=== PATIENT | female | born 1950 | race Caucasian/White ===

== ENCOUNTER 2024-02-28 10:40 | Outpatient (AMB) | payer MEDICARE, BC, SELFPAY ==
[2024-02-28 11:29] VITALS: BP 118/70; PULSE 70; O2SAT 97; BMI 27.3
--- NOTE | 2024-02-28 11:29 | MHC.OFFVIS ---
Vital Signs 02/28/24 11:29 Height 5 ft 3 in Weight 153 lb 14.122 oz BMI 27.3 BP 118/70 Blood Pressure Location Lt brachial Position Sitting Pulse 70 Pulse Source Pulse Oximeter Pulse Oximetry (%) 97 Oxygen Delivery Method Room Air Intake Visit Reasons: Rt clavicular pain/swelling/CM APT Intake Note: Patient presents today with pain in right arm/shoulder pain. Allergies No Known Allergies Allergy (Verified 02/28/24 11:32) HPI HPI Rt clavicular pain/swelling/CM APT: Details: She has had chronic right clavicular swelling for months. It was initially noticed by her friend. She reports that she has been working out at the [employer] with lifting weights, which may have brought on the swelling. She denies having any redness or warmth around the joint. The joint is not tender to touch. She is experiencing pain in bilateral shoulders and neck pain with certain movements when she is working out. She has changed her workout routine, which has alleviated some of the shoulder pain. She has arthritis in her hands and occasionally has pain. When she bangs her finger she may note some swelling, which subsides. She has not had an episode of acute joint. There is no family history of any rheumatological disease. No personal history of gout or pseudogout. She denies fevers, rash, oral ulcers, photosensitivity, Raynaud's phenomenon, dyspnea, pleurisy, urinary symptoms, nausea, vomiting, major illness or hospitalization in the last year, infections precipitating right clavicular swelling. [facility] Medical History (Updated 02/28/24 @ 12:53 by Darrion Duran MD) Myofascial pain Fibromyalgia Surgical History (Updated 02/28/24 @ 11:37 by Zakiya Adler CMA) History of carpal tunnel surgery H/O right wrist surgery Family History (Updated 02/28/24 @ 11:39 by Zakiya Adler CMA) Father Heart attack Mother Advanced dementia Social History (Updated 02/28/24 @ 11:40 by Zakiya Adler CMA) Alcohol intake: current Alcohol intake frequency: holidays/special occasions only Patient Tobacco Use Status: Never used Tobacco Review of Systems Const All systems reviewed & are unremarkable except as noted in HPI and below Physical Exam Vital Signs: Last Vital Signs Pulse 70 02/28/24 11:29 BP 118/70 02/28/24 11:29 Pulse Ox 97 02/28/24 11:29 Oxygen Delivery Method Room Air 02/28/24 11:29 BMI result Body Mass Index 27.3 Const Other: General: Comfortable CVS: RRR Respiratory: clear to auscultation bilaterally. Good respiratory effort Skin: No lesions seen MSK: She has soft tissue swelling without tenderness right sternoclavicular sternoclavicular joint. There is no warmth or discoloration. Tender to palpate bilateral shoulders. Pain with range of motion of shoulders but range of motion is intact. Right 5th PIP is tender with some swelling noted. Heberden nodes and Eleni's nodes are present. Good range of motion of upper extremities and lower extremities. No MTP tenderness. Bilateral trochanteric bursa tenderness was found. Results Reviewed Results Reviewed: Labs from 09/13/2023 reviewed, which reveal negative rheumatoid factor, anti CCP antibody, cytopenias, normal kidney function creatinine 0.71 with EGFR 90, AST is 26 ALT is 14, CRP is less than 1 milligram/liter, ESR 7 millimeters/hour, Lyme serology is negative. MRI right clavicle 09/17/2023 results reveal right sternoclavicular joint effusion with capsular hypertrophy and a small amount of marrow edema across the sternoclavicular joint. Findings may be secondary to right sternoclavicular osteoarthritis. Infection is felt unlikely. There is no osseous erosion and the history provided on the ultrasound report is that there is no erythema or warmth on the region. Ultrasound soft tissue 10/03/2023 reveals asymmetric thickening of hypoechoic soft tissue along the right sternoclavicular joint compared to the left, without a clear delineated mass. 2.1 x 2.2 x 0.8 cm area of relatively homogeneous mildly hypoechoic tissue at the anterior to the right sternoclavicular joint. This could represent inflammatory changes or fibrosis. X-ray of the right clavicle reviewed from [facility] records 08/28/2023 reveals no osseous abnormality. Assessment & Plan Assessment & Plan (1) Swelling of clavicular region: Comment: Chronic right sternoclavicular joint swelling could be secondary to osteoarthritis. Can consider crystal arthropathy in the differential diagnosis but it would be rare she does not have typical signs of inflammatory arthritis (no warmth, pain, normal inflammatory markers or systemic symptoms). I am not concerned about an septic arthritis/active infection especially with the imaging findings noting no erosions or aggressive features to suggest infection process. We discussed next steps in evaluating definitive cause for joint swelling involving IR ultrasound guided aspiration of joint and sending synovial fluid for studies including cell count, crystal analysis and culture. Code(s): M79.89 - Other specified soft tissue disorders Category: Medical Plan: We will arrange for IR ultrasound-guided aspiration of right sternoclavicular joint with synovial fluid analysis She will use NSAIDs as needed for general joint pain Return to clinic in 1 month following procedure (2) Greater trochanteric bursitis of both hips: Comment: Bilateral. Discussed conservative management Code(s): M70.61 - Trochanteric bursitis, right hip; M70.62 - Trochanteric bursitis, left hip Category: Medical Plan: PT referral ordered Return to clinic in 3 months (3) Shoulder pain: Comment: Bilateral exacerbated with activity. I suspect chronic rotator cuff tendinopathy but can not exclude osteoarthritis contributing. We will obtain x-ray to evaluate for joint pathology. Code(s): M25.519 - Pain in unspecified shoulder Category: Medical Plan: X-rays of bilateral shoulders ordered Orders: Orders PT Evaluation and Treatment Today M70.61 - Trochanteric bursitis, right hip, M70.62 - Trochanteric bursitis, left hip XR shoulder LT min 2V Today M25.519 - Pain in unspecified shoulder XR shoulder RT min 2V Today M25.519 - Pain in unspecified shoulder Alanine Aminotransferase Today M79.89 - Other specified soft tissue disorders Erythrocyte Sedimentation Rate Today M79.89 - Other specified soft tissue disorders Hepatitis B,C Profile Today M79.89 - Other specified soft tissue disorders Creatinine Today M79.89 - Other specified soft tissue disorders Aspartate Amino Transferase Today M79.89 - Other specified soft tissue disorders C Reactive Protein Today M79.89 - Other specified soft tissue disorders T Spot TB Today M79.89 - Other specified soft tissue disorders Complete Blood Count Auto Diff Today M79.89 - Other specified soft tissue disorders Coding Level of Care Code New Pt Level 4 (64072) Diagnoses Swelling of clavicular region M79.89 Greater trochanteric bursitis of both hips M70.61; M70.62 Shoulder pain M25.519
--- OUTSIDE RECORDS SUMMARY | 2024-03-05 01:40 | XMS_ITS ---
Author Organization Unknown Address [address] [place] [phone] Phone Care Team Providers Care Separator Inserter Name Role Phone DOV NORWOOD Registered Nurse Unavailable TYE Souza Attending Unavailable PCP NOT SELECTED Primary Unavailable UNLISTED PROVIDER - REQUESTED Xhandoff Un available Results XR C-ARM WRIST 3V 4V RT* - C ompleted: LOINC: [facility] [place], [place] [address] [facility] CATCHER HELPER REPORT Patient Name: RAMON MAC MRN: Sex: : Age: [id number] F 1950 73 Account: Accession: Admit: StayType: [id number] 09/07/2023 E Ordered: Order ID: Submitted: Ordering Provider: 09/07/2023 14:36 [id number] ROVERTO OSPINA Completed: Technologist: Resulted: 09/07/2023 14:44 YANIRA 09/07/2023 15:18 FINAL REPORT EXAM: XR C-ARM WRIST 3V 4V RT CLINICAL HISTORY: Reason for Extrem: RT WRIST FX TECHNIQUE: 2D and realtime digital imaging was performed. CONTRAST MATERIAL: Refer to procedure report. COMPARISON: XR WRIST 3V W NAVICULAR RT* from 09/07/2023 FINDINGS: Fluoroscopy was provided for Dr. Marcos during the performance of a closed reduction of the distal radial fracture.. Please refer to the procedure report for complete details. Yashiracharisse=0.09 mGy IMPRESSION: RADIATION DOSE DELIVERED: Electronically signed by: Chirag Javier Dictated: 09/07/2023 15:18 XR WRIST 2V RT* - Completed: 09/07/2023 15:30 LOINC: [facility] [place], [place] [id number] [place] [address] [facility] CATCHER HELPER REPORT Patient Name: RAMON MAC MRN: Sex: : Age: [id number] F 1950 73 Account: Accession: Admit: StayType: [id number] 09/07/2023 E Ordered: Order ID: Submitted: Ordering Provider: 09/07/2023 15:21 [id number] ROVERTO MEJIA Completed: Technologist: Resulted: 09/07/2023 15:25 SCP 09/07/2023 16:48 FINAL REPORT EXAM: XR WRIST 2V RT CLINICAL HISTORY: Reason for Extrem: POST REDUCTION. TECHNIQUE: 2D digital imaging was performed of the right wrist. Two views were obtained. PA and lateral views were obtained. COMPARISON: XR WRIST 3V W NAVICULAR RT* from 09/07/2023 FINDINGS: BONES: There is again seen an acute intra-articular fracture of the distal radius. It is comminuted. There has been improved alignment of the fracture without significant dorsal displacement. There remains dorsal angulation of the fracture. No bony destructive lesion is seen. JOINTS: The carpal bones are normally aligned. SOFT TISSUE: Normal. IMPRESSION: Improved alignment of the comminuted intra-articular distal right radial fracture. There is persistent dorsal angulation. DATA REPOSITORY: RADIATION DOSE DELIVERED: Electronically signed by: Chirag Javier Dictated: 09/07/2023 16:48 XR WRIST 3V W NAVICULAR RT* - Completed: 09/07/2023 13:40 LOINC: [facility] [place], [place] [id number] [place] [address] PACS CATCHER HELPER REPORT Patient Name: RAMON MAC MRN: Sex: : Age: [id number] F 1950 73 Account: Accession: Admit: StayType: [id number] 09/07/2023 E Ordered: Order ID: Submitted: Ordering Provider: 09/07/2023 13:22 [id number] ROVERTO PANDA Completed: Technologist: Resulted: 09/07/2023 13:29 NK 09/07/2023 14:31 FINAL REPORT EXAM: XR WRIST 3V W NAVICULAR RT* CLINICAL HISTORY: Reason for Extrem: Trauma. TECHNIQUE: 2D digital imaging was performed of the right wrist. Four views were obtained. Scaphoid, PA, lateral and oblique views were obtained. COMPARISON: No exams were available for comparison FINDINGS: BONES: There is an acute comminuted intra-articular fracture of the distal right radius. There is dorsal angulation and dorsal displacement of the distal fracture. No bony destructive lesion is seen. JOINTS: The carpal bones are normally aligned. There are mild degenerative changes seen at the articulation of the scaphoid and the trapezium bone. SOFT TISSUE: Normal. IMPRESSION: Comminuted intra-articular fracture of the distal right radius which shows dorsal angulation and displacement. DATA REPOSITORY: RADIATION DOSE DELIVERED: Electronically signed by: Chirag Javier Dictated: 09/07/2023 14:31 Social History Type Status Start Date End Date Code Code Syst em Sex Female Vital Signs Vital Sign Value Unit Whitley Value Whitley Unit Date/Time Recent/Initial? Code Code System Body Mass Index 22.50 kg/m2 09/07/2023 13:17 Initial 81359 -5 LOINC Systolic Blood Pressure 152 mm[Hg] 09/07/2023 13:17 Initial 8480- 6 LOINC Diastolic Blood Pressure 86 mm[Hg] 09/07/2023 13:17 Initial 8462- 4 LOINC Body Surface Area 1.60 m2 09/07/2023 13:17 Initial 3140- 1 LOINC Height 160.020 0 cm 63.00 in 09/07/2023 13:17 Initial 8302- 2 LOINC O2 Saturation 93 % 2023 13:17 Initial 72759 -5 LOINC Pulse 68.0 /min 09/07/2023 13:17 Initial 8867- 4 LOINC Respiration 15 /min 09/07/19 13:17 Initial 9279- 1 LOINC Temperature 36.4 Bhavya 97.5 F 09/07/19 13:17 Initial 8310- 5 LOINC Weight 57.61 kg 127.00 lbs 09/07/2023 13:17 Initial 66259 -7 LOINC Medications Medication Start Date End Date Route Frequency Dose Code Code System Medication Instructions Home Meds Morphine Sulfate 15MG Oral Tablet 09/07/2023 Unknown ORAL NEEDED FOUR TIMES A DAY 0.5 TABLET 308728 RxNorm TAKE 0.5 TABLET ORAL NEEDED FOUR TIMES A DAY Hospital Discharge Instructions Should you have any questions prior to discharge, please contact a member of your healthcare team. If you have left the hospital and have any questions, please contact your primary care physician. Reason For Referral No Data Found Procedures Procedure Name Date Status Code Code Syste m Simple Repair, Superficial W ounds, Scalp/Neck/Axillae/Genitalia/Trunk/Extremities; 2.5 cm/< completed 60100 CPT Closed Treatment, Distal Rad ial FX /Epiphyseal Separation; w/Manipulation completed 06538 CPT Problems Problem Start Date Resolved Date Status Code Code System HYPERCHOLESTEROLEMIA 09/07/2023 resolved 71297847 SNOMED-CT FIBROMYALGIA 09/07/2023 resolved 332248210 SNOMED -CT Allergies and Adverse Reactions Allergy Substance Reaction Severity Start Date Concern Status Co de Code System No Known Allergies Active 324683387 SNO MED-CT Plan of Treatment No Data Found Encounters Encounter Diagnosis Start Date Code Code Sys tem Other intraarticular fractur e of lower end of right radius, initial encounter for closed fracture 09/07/2023 SNOMED-CT Personal Care Team Section Performer Name Performer Role Active Date Inactive Da te
--- OUTSIDE RECORDS SUMMARY | 2024-03-05 01:40 | XMS_ITS | Continuity of Care Document ---
Author Organization [facility] Address [address] [place] [address] Phone [phone] Care Team Providers Care Admission Nurse Name Role Phone Ritchie Cuadra MD Care Team Information Receive r [phone] Rylee Huizar M.D. Care Team Information Rec eiver [phone] Problems Active Problems Provider Date Dyslipidemia Nataly Esteban M.D. Ons et: 06/07/2022 Osteoporosis Nataly Esteban M.D. Ons et: 06/07/2022 Fibromyalgia Nataly Esteban M.D. Ons et: 06/07/2022 Benign paroxysmal positional vertigo Nataly Wood M.D. Onset: 06/07/2022 Anxiety Nataly Esteban M.D. 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 Vital Signs Date Vital Result Comment 06/27/2023 9:03am BP Systolic 110 mmHg BP Diastolic 60 mmHg Heart Rate 76 /min Height 63 inches 5'3 Weight 131.38 lb BMI (Body Mass Index) 23.3 kg/m2 Results Test Acquired Date Facility Test Result H/L Range Note Comp. Metabolic Panel (14) 07/02/2023 [facility] Glucose 86 mg/dL 70-99 BUN 14 mg/dL 8-27 Creatinine 0.67 mg/dL 0.57-1.0 0 eGFR 92 mL/min/1.7 3 >59 BUN/Creatinine Ratio 21 12-28 Sodium 138 mmol/L 134-144 Potassium 4.9 mmol/L 3.5-5.2 Chloride 100 mmol/L 96-106 Anion Gap 13.0 mmol/L 10.0-18. 0 Carbon Dioxide, Total 25 mmol/L 20-29 Calcium 9.4 mg/dL 8.7-10.3 Protein, Total 6.5 g/dL 6.0-8.5 Albumin 4.3 g/dL 3.8-4.8 Globulin, Total 2.2 g/dL 1.5-4.5 A/G Ratio 2.0 1.2-2.2 Bilirubin, Total 0.4 mg/dL 0.0-1 .2 Alkaline Phosphatase 56 IU/L 44-121 Ast (Sgot) 29 IU/L 0-40 Alt (SGPT) 20 IU/L 0-32 Laboratory test finding 07/02/2023 [facility] Vitamin D, 25-Hydroxy 33.9 ng/mL 30.0-100 .0 1 N-Telopeptide, Urine 07/02/2023 [facility] N-Telopeptide 390 nmolBCE Not Estab. Creatinine, Urine 119.0 mg/dL Not Estab. N-Telo/Creat. Ratio 37 nMBCE/mMCr 0-89 Interpretive Guide: See Comment: 2 CBC With Differential/Plat elet 07/02/2023 [facility] WBC 3.7 x10E3/uL 3.4-10.8 RBC 4.48 x10E6/uL 3.77-5.2 8 Hemoglobin 13.7 g/dL 11.1-15. 9 Hematocrit 40.8 % 34.0-46. 6 MCV 91 fL 79-97 MCH 30.6 pg 26.6-33. 0 MCHC 33.6 g/dL 31.5-35. 7 RDW 12.4 % 11.7-15. 4 Platelets 219 x10E3/uL 150-450 Neutrophils 49 % Not Estab. Lymphs 34 % Not Estab. Monocytes 15 % Not Estab. Eos 1 % Not Estab. Basos 1 % Not Estab. Immature Cells TNP Neutrophils (Absolute) 1.9 x10E3/uL 1.4-7.0 Lymphs (Absolute) 1.3 x10E3/uL 0.7-3.1 Monocytes(Absol u te) 0.6 x10E3/uL 0.1-0.9 Eos (Absolute) 0.0 x10E3/uL 0.0-0.4 Baso (Absolute) 0.0 x10E3/uL 0.0-0.2 Immature Granulocytes 0 % Not Estab. Immature Grans (Abs) 0.0 x10E3/uL 0.0-0.1 NRBC TNP Hematology Comments: TNP Comprehensive Metabolic Panl 06/09/2022 [facility] Glucose 79 mg/dL (70-99) BUN 12 mg/dL (8-23) Creatinine 0.7 mg/dL (0.5-1.0 ) Sodium 137 mmol/L (133-145 ) Potassium 4.3 mmol/L (3.6-5.2 ) Chloride 100 mmol/L (98-107) Bicarbonate 29 mmol/L (22-29) Anion Gap 8 (4-17) Albumin 4.7 GM/DL (3.4-4.8 ) Calcium 9.7 mg/dL (8.6-10. 5) Bilirubin,Total 0.3 mg/dL (0-1.2 ) Total Protein 7.0 GM/DL (6.2-8.2 ) Ag Ratio 2.0 Ast 27 U/L (0-32) Alk Phos 56 U/L (35-104) Alt 17 U/L (0-33) Estimated GFR Creatinine 93 ML/MIN/1.7 3M2 3 Complete Abc With Diff 06/09/2022 [facility] WBC 4.9 K/MM3 (4.0-11. 0) RBC 4.74 M/MM3 (4.20-5. 40) HGB 14.2 GM/DL (11.7-15 .5) HCT 47.1 % High (35.7-45 .8) MCV 99.4 FL (80.0-10 0.0) MCH 30.0 pg (27.0-34 .0) MCHC 30.1 g/dL Low (33.0-37 .0) PLT 258 K/MM3 (150-460 ) RDW-SD 48.4 FL High (<47.0) MPV 11.9 FL (9.4-12. 4) Automated NRBC 0.0 #/100WBC'S Abs. NRBC 0.0 K/MM3 Neut # 3.2 K/MM3 (1.3-7.0 ) Lymph # 1.2 K/MM3 (0.8-3.1 ) Mcclain# 0.4 K/MM3 (0.4-0.9 ) Eo # 0.1 K/MM3 (0.0-0.4 ) Baso # 0.0 K/MM3 (0.0-0.1 ) Abs. Imm Gran 0.0 K/MM3 Neut 65.6 % (44-76) Lymph 23.7 % (15-43) Monocyte 8.9 % (4.5-10. 5) Eo 1.0 % (0-6) Baso 0.6 % (0-2) Imm Gran 0.2 % Laboratory test finding 06/09/2022 [facility] 25Oh Vitamin D 32.6 NG/ML (20-50) N-Telopeptide Cross Links, Urine 06/09/2022 [facility] Cross Linked N-Telopeptides 222 4 Creat, Urine 73.2 5 N-Telopeptide/C r eat Ratio 34 6 NTX Interpretaion Comment 7 1 Vitamin D deficiency has been defined by the [place] of Medicine and an Endocrine Society practice guideline as a level of serum 25-OH vitamin D less than 20 ng/mL (1,2). The Endocrine Society went on to further define vitamin D insufficiency as a level between 21 and 29 ng/mL (2). 1. IOM ([place] of Medicine). 2010. Dietary reference intakes for calcium and D. [place]: The National Academies Press. 2. Tim MF, Travon NC, Nael LERNER, et al. Evaluation, treatment, and prevention of vitamin D deficiency: an Endocrine Society clinical practice guideline. JCEM. 2010; 96(7):1911-30. 2 The N-telopeptide an d Creatinine are used to calculate the N-telo/Creat. Ratio which is referred to as NTx . Suggested guidelines for the clinical use of NTx are as follows: 1. Menopausal Women not on Hormone Replacement Therapy (HRT): Women with a baseline NTx value >38 are at significant risk for a decrease in bone mineral density (BMD) after 1 year compared to women on HRT. The probability of a decline in BMD increases with NTx value as follows: (1): Baseline NTx Probability of Decrease in BMD 18- 38 1.4 p=0.28 38- 51 2.5 p=0.03 51- 67 3.8 p=0.0006 67-188 17.3 p=0.0001 2. Menopausal Women Receiving Antiresorptive Therapy: The probability that treatment is effective after three months is increased when the measured NTx value is <or=38 nM BCE/mM RN PERIOPERATIVE, or NTx has decreased >or=30% from baseline.[1] 3. Patients with Paget's Disease of Bone: The probability that treatment is effective after one month is increased when the measured NTx value is within the reference range, or NTx has decreased >or=30% from baseline.[2] 1. Nilson CH, Owen NH, Luis Eduardo GS, et al. Am J Med, 102:29-37,1997. (1):M757, 1996. 2. Bone H, Ezekiel J, et al. J Bone Min Res.11(1):M757,1996 3 Creatinine based est imated glomerular filtration (eGFR) in adults is calculated using the National Kidney Foundation recommended 2020 CKD-EPI equation. Estimates GFR from serum creatinine, age and sex. 4 Reference range: Not Estab. Unit: nmol BCE Test performed at [facility], [address] [place] [address] 5 Reference range: Not Estab. Unit: mg/dL [facility] [address] [facility] [place] [address] 6 Reference range: 0 t o 89 Unit: nM BCE/mM Cr 7 (NOTE) The N-telopeptide and Creatinine are used to calculate the N-telo/Creat. Ratio which is referred to as NTx . Suggested guidelines for the clinical use of NTx are as follows: 1. Menopausal Women not on Hormone Replacement Therapy (HRT): Women with a baseline NTx value >38 are at significant risk for a decrease in bone mineral density (BMD) after 1 year compared to women on HRT. The probability of a decline in BMD increases with NTx value as follows: (1): Baseline NTx Probability of Decrease in BMD 18- 38 1.4 p EQ 0.28 38- 51 2.5 p EQ 0.03 51- 67 3.8 p EQ 0.0006 67-188 17.3 p EQ 0.0001 2. Menopausal Women Receiving Antiresorptive Therapy: The probability that treatment is effective after three months is increased when the measured NTx value is <or EQ 38 nM BCE/mM RN PERIOPERATIVE, or NTx has decreased >or EQ 30% from baseline.[1] 3. Patients with Paget's Disease of Bone: The probability that treatment is effective after one month is increased when the measured NTx value is within the reference range, or NTx has decreased >or EQ 30% from baseline.[2] 1. Nilson CH, Lexie NH, Luis Eduardo GS, et al. Am J Med, 102:29-37,1996. (1):M757, 1996. 2. Bone H, Ezekiel J, et al. J Bone Min Res.11(1):M757,1996 [place] [address] Medical Devices Description No Information Available Encounters Type Date Location Provider Dx Diagnosis Office Visit 06/27/2023 9:00a Main Office Nataly Esetban M.D. M81.0 Age-related osteoporosis w/o current pathological fracture Assessments Date Code Description Provider 06/27/2023 M81.0 Age-related oste oporosis without current pathological fracture Nataly Esteban M.D. Plan of Treatment Future Appointment(s):* 06/30/2024 8:00 am - Nataly Esteban M.D. at Main Office 06/07/2022 - Nataly Esteban M.D.* M81.0 Age-related osteoporosis without current pathological fracture* New Xrays:* Dexa Bone Density Study Axial Skeleton, Ordered: 06/07/22 Functional Status Description No Information Available Mental Status Description No Information Available Referrals Description No Information Available
== END 2024-02-28 12:48 | disposition home or self-care (01) ==
PROVIDERS: PCP Family Medicine; Visit Provider Internal Medicine Rheumatology
DX: M79.89 Other specified soft tissue disorders (principal); M70.61 Trochanteric bursitis, right hip; M70.62 Trochanteric bursitis, left hip; M25.519 Pain in unspecified shoulder
CPT/HCPCS: 99204

== ENCOUNTER → 2024-02-28 10:40 | Outpatient (BNVA) | payer MEDICARE, BC, SELFPAY | PROVIDERS: PCP Family Medicine; Visit Provider Internal Medicine Rheumatology | DX: M25.511 Pain in right shoulder (principal); M79.89 Other specified soft tissue disorders; M70.61 Trochanteric bursitis, right hip; M70.62 Trochanteric bursitis, left hip | CPT/HCPCS: 99202 ==

== ENCOUNTER 2024-02-29 08:59 | Outpatient (REF) | payer MEDICARE, SELFPAY ==
[2024-02-29 09:43] LABS: MANUAL DIFF FLAG NO
[2024-02-29 10:40] LABS: Basophils Percent Auto 0.7 % (0-2); Eosinophils Absolute Auto 0.1 X10*3/uL (0.0-0.4); Eosinophils Percent Auto 1.4 % (0-4); Hematocrit 42.4 % (37.0-47.0); Imm Gran Abs Auto 0.01 X10*3/uL (0.00-0.03); Imm Gran Pct Auto 0.2 % (0.0-0.4); Lymphocytes Absolute Auto 1.3 X10*3/uL (1.2-4.9); Lymphocytes Percent Auto 31.6 % (20-40); Mean Corpuscular Hemoglobin 30.4 pg (27.0-33.0); Mean Platelet Volume 11.2 fL (9.4-12.3); Monocytes Absolute Auto 0.6 X10*3/uL (0.1-1.2); Neutrophils Absolute Auto 2.1 x10*3/uL (2.0-8.3); Neutrophils Percent Auto 51.1 % (45-73); Platelet Count 243 X10*3/uL (160-400); Red Blood Count 4.61 X10*6/uL (4.20-5.50); White Blood Count 4.1 X10*3/uL (4.8-10.8)
[2024-02-29 11:23] LABS: Erythrocyte Sedimentation Rate 10 MM/HR (0-20)
[2024-02-29 11:34] LABS: Alanine Aminotransferase 20 U/L (0-31); Aspartate Amino Transferase 32 U/L (5-31); Estimated Glomerular Filt Rate > 60
[2024-02-29 11:39] LABS: HBS Num1 241.45 mIU/mL (0-7.99); HBc Num1 0.06 S/CO (0.00-0.79); HBsAGNum1 0.37 S/CO (0.00-0.99); Hepatitis B Core Antibody Nonreactive (Nonreactive); Hepatitis B Surface Antigen Negative (Negative); ~HepC Num1 0.13 S/CO (0.00-0.79); ~Hepatitis B Surface Antibody REACTIVE (Nonreactive); ~Hepatitis C Antibody Nonreactive (Nonreactive)
--- OUTSIDE RECORDS SUMMARY | 2024-03-05 06:01 | XMS_ITS ---
Author Organization Unknown Address [address] [place] [address] [phone] Phone Care Team Providers Care Consulting Sales Manager Name Role Phone DOV NORWOOD Registered Nurse Unavailable TYE Souza Attending Unavailable PCP NOT SELECTED Primary Unavailable UNLISTED PROVIDER - REQUESTED Xhandoff Un available Results XR C-ARM WRIST 3V 4V RT* - C ompleted: LOINC: [facility] [place], [place] [address] [facility] HEATING UNIT INSTALLER REPORT Patient Name: RAMON MAC MRN: Sex: : Age: [id number] F 1950 73 Account: Accession: Admit: StayType: [id number] 09/07/2023 E Ordered: Order ID: Submitted: Ordering Provider: 09/07/2023 14:36 [id number] ROVERTO OSPINA Completed: Technologist: Resulted: 09/07/2023 14:44 [...] 2V RT* - Completed: 09/07/2023 15:30 LOINC: [facility] [place], [place] [id number] [place] [address] [facility] HEATING UNIT INSTALLER REPORT Patient Name: RAMON MAC MRN: Sex: : Age: [id number] F 1950 73 Account: Accession: Admit: StayType: [id number] 09/07/2023 E Ordered: Order ID: Submitted: Ordering Provider: 09/07/2023 15:21 [id number] ROVERTO MEJIA Completed: Technologist: Resulted: 09/07/2023 15:25 [...] NAVICULAR RT* - Completed: 09/07/2023 13:40 LOINC: [facility] [place], [place] [id number] [place] [address] [facility] HEATING UNIT INSTALLER REPORT Patient Name: RAMON MAC MRN: Sex: : Age: [id number] F 1950 73 Account: Accession: Admit: StayType: [id number] 09/07/2023 E Ordered: Order ID: Submitted: Ordering Provider: 09/07/2023 13:22 [id number] ROVERTO PANDA Completed: Technologist: Resulted: 09/07/2023 13:29 [...] Female Vital Signs Vital Sign Value Unit [place] Value [place] Unit Date/Time Recent/Initial? Code Code System Body Mass Index 22.50 kg/m2 09/07/2023 13:17 Initial 08375 -5 LOINC Systolic Blood Pressure 152 mm[Hg] 09/07/2023 13:17 Initial 8480- 6 LOINC Diastolic Blood Pressure 86 mm[Hg] 09/07/2023 13:17 Initial 8462- 4 LOINC Body Surface Area 1.60 m2 09/07/2023 13:17 Initial 3140- 1 LOINC Height 160.020 0 cm 63.00 in 09/07/2023 13:17 Initial 8302- 2 LOINC O2 Saturation 93 % 2023 13:17 Initial 78576 -5 LOINC Pulse 68.0 /min 09/07/2023 13:17 Initial 8867- 4 LOINC Respiration 15 /min 09/07/19 13:17 Initial 9279- 1 LOINC Temperature 36.4 Bhavya 97.5 F 09/07/19 13:17 Initial 8310- 5 LOINC Weight 57.61 kg 127.00 lbs 09/07/2023 13:17 Initial 16582 -7 LOINC Medications Medication Start Date End Date Route Frequency Dose Code Code System Medication Instructions Home Meds Morphine Sulfate 15MG Oral Tablet 09/07/2023 Unknown ORAL NEEDED FOUR TIMES A DAY 0.5 TABLET 295582 RxNorm TAKE 0.5 TABLET ORAL NEEDED FOUR [...] Superficial W ounds, Scalp/Neck/Axillae/Genitalia/Trunk/Extremities; 2.5 cm/< completed 32292 CPT Closed Treatment, Distal Rad ial FX /Epiphyseal Separation; w/Manipulation completed 68693 CPT Problems Problem Start Date Resolved Date Status Code Code System HYPERCHOLESTEROLEMIA 09/07/2023 resolved 01771602 SNOMED-CT FIBROMYALGIA 09/07/2023 resolved 173307042 SNOMED -CT Allergies and Adverse Reactions Allergy Substance Reaction Severity Start Date Concern Status Co de Code System No Known Allergies Active 949476859 SNO MED-CT Plan of Treatment No Data Found Encounters Encounter Diagnosis Start Date Code Code Sys tem Other intraarticular fractur e of lower end of right radius, initial encounter for closed fracture 09/07/2023 SNOMED-CT Personal Care Team Section Performer Name Performer Role Active Date Inactive Da te
--- OUTSIDE RECORDS SUMMARY | 2024-03-05 06:01 | XMS_ITS | Continuity of Care Document ---
Author Organization [facility] Address [address] [place] [address] Phone [phone] Care Team Providers Care Storage Worker Name Role Phone Ritchie Cuadra MD Care Team Information Receive r [phone] Rylee Huizar M.D. Care Team Information Rec eiver [phone] Problems Active Problems Provider Date Dyslipidemia Nataly Esteban M.D. Ons et: 06/07/2022 Osteoporosis Nataly Esteban M.D. Ons et: 06/07/2022 Fibromyalgia Nataly Esteban M.D. Ons et: 06/07/2022 Benign paroxysmal positional vertigo Nataly Wood M.D. Onset: 06/07/2022 Anxiety Nataly Esteban M.D. 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 ETOH Use Rarely consumes alcohol Tobacco Use Start: Unknown Patient has never smoked Allergies and adverse reactions Description No Known Drug Allergies Medications Active Medications SIG Qnty Indications Ordering Provider Date Puauhukotta33dp Tablets Take One Tablet By Mouth Every Evening Ritchie Cuadra MD [id number] Tablets Take 1 tablet at night Ritchie Cuadra MD Duloxetine VVY60zk Caps DR Part Take 1 capsule daily [...] Hematology Comments: TNP Comprehensive Metabolic Panl 06/09/2022 [facility] Reference Lab Glucose 79 mg/dL (70-99) BUN [...] 3M2 3 Complete Abc With Diff 06/09/2022 [facility] Reference Lab WBC 4.9 K/MM3 (4.0-11. 0) [...] ) Lymph # 1.2 K/MM3 (0.8-3.1 ) [place]# 0.4 K/MM3 (0.4-0.9 ) Eo # 0.1 K/MM3 (0.0-0.4 ) Baso # 0.0 K/MM3 (0.0-0.1 ) Abs. Imm Gran 0.0 K/MM3 Neut 65.6 % (44-76) Lymph 23.7 % (15-43) Monocyte 8.9 % (4.5-10. 5) Eo 1.0 % (0-6) Baso 0.6 % (0-2) Imm Gran 0.2 % Laboratory test finding 06/09/2022 [facility] Reference Lab 25Oh Vitamin D 32.6 NG/ML (20-50) N-Telopeptide Cross Links, Urine 06/09/2022 [facility] Reference Lab Cross Linked N-Telopeptides 222 4 Creat, Urine 73.2 5 N-Telopeptide/C r eat Ratio 34 6 NTX Interpretaion Comment 7 1 Vitamin D deficiency has been defined by the [place] of [employer] and an Endocrine Society practice guideline as a level of serum 25-OH vitamin D less than 20 ng/mL (1,2). The Endocrine Society went on to further define vitamin D insufficiency as a level between 21 and 29 ng/mL (2). 1. IOM ([place] of Medicine). 2010. Dietary reference intakes for [...] measured NTx value is <or=38 nM BCE/mM MAPPING ANALYST, or NTx has decreased >or=30% from baseline.[1] [...] Estab. Unit: nmol BCE Test performed at [facility], [address] [place] [address] 5 Reference range: Not Estab. Unit: mg/dL [facility], [address] [facility] [place] [address] 6 Reference range: 0 t o 89 [...] value is <or EQ 38 nM BCE/mM MAPPING ANALYST, or NTx has decreased >or EQ 30% [...] J Bone Min Res.11(1):M757,1996 [place] [address] Medical Devices Description No Information Available Encounters Type Date Location Provider Dx Diagnosis Office Visit 06/27/2023 9:00a Main Office Nataly Esteban M.D. M81.0 Age-related osteoporosis w/o current pathological [...]
[2024-03-05 16:05] LABS: TS Negative Control PASSED; TS Panel A 0; TS Panel B 0
[2024-03-05 16:06] LABS: TS Positive Control PASSED; TSpotTB NEGATIVE
== END 2024-02-29 09:00 | disposition home or self-care (01) ==
LOC: HO.XRAY 08:59
PROVIDERS: PCP Family Medicine; Visit Provider Internal Medicine Rheumatology
DX: M79.89 Other specified soft tissue disorders (principal); M25.512 Pain in left shoulder; M25.511 Pain in right shoulder
CPT/HCPCS: 36415; 73030; 82565; 84450; 84460; 84550; 85025; 85652; 86140; 86481; 86704; 86706; 86803; 87340

== ENCOUNTER → 2024-02-29 09:07 | Outpatient (BNV) | payer MEDICARE, SELFPAY | PROVIDERS: PCP Family Medicine; Visit Provider Radiology Diagnostic Radiology | DX: M19.011 Primary osteoarthritis, right shoulder (principal); M19.012 Primary osteoarthritis, left shoulder | CPT/HCPCS: 73030 ==

== ENCOUNTER 2024-04-07 12:02 | Day surgery (SDC) | payer MEDICARE, SELFPAY ==
--- NOTE | ~2024-04-07 | CT_ITS ---
Right sternoclavicular edema. Rheumatology requests a right sternoclavicular joint aspiration. PROCEDURES: 1. Limited preprocedure CT of the chest. Permanent images saved in PACS. 2. CT-guided aspiration of right sternal clavicular joint. CLINICIANS: Felipe Lassiter PA-C MEDICATIONS: -Lidocaine 1% 10 mL SQ -Antibiotics: None -For additional details, please see nursing flowsheet. COMPLICATIONS: None ESTIMATED BLOOD LOSS: < 5 ml CONTRAST: None SPECIMENS: None PROCEDURE NOTE: The procedure, risks, benefits, and alternatives were carefully explained to the patient and written informed consent was obtained. The patient was placed supine on the CT table. A timeout was performed. A limited CT of the chest was performed to localize the right sternoclavicular joint and choose appropriate needle entry and trajectory. The patient was prepped and draped in usual sterile fashion. The skin and deeper soft tissues were anesthetized with lidocaine. Under CT guidance, a 22-gauge spinal needle was advanced into the right sternal clavicular joint. No fluid could be aspirated. The needle was removed and a dry dressing was applied to the needle entry site. There were no immediate complications. The patient was stable after the procedure and was transferred to the post anesthesia care unit. CT/CT guided aspiration Impression: CT-guided right sternoclavicular joint aspiration, yielding no synovial fluid. This procedure was performed by Felipe Lassiter PA-C and supervised by Dr. Dias. Electronically signed by: Kale Gonzalez MD 04/09/2024 05:26 PM [facility]
[2024-04-07 12:59] VITALS: BMI 22.5
[2024-04-07 13:05] VITALS: BP 142/71; PULSE 80; RESP 16; TEMP 37.4; O2SAT 99
[2024-04-07 14:05] VITALS: BP 147/85; PULSE 76; RESP 16; TEMP 37.2; O2SAT 99
== END 2024-04-07 14:23 | disposition home or self-care (01) ==
PROVIDERS: Radiology Vascular & Interventional Radiology; PCP Family Medicine; Visit Provider Internal Medicine Rheumatology
DX: M79.89 Other specified soft tissue disorders (principal)
CPT/HCPCS: 10160; 20605; 77012; J2003

== ENCOUNTER → 2024-04-07 13:28 | Outpatient (BNV) | payer MEDICARE, SELFPAY | PROVIDERS: PCP Family Medicine; Visit Provider Physician Assistant Surgical | DX: M79.89 Other specified soft tissue disorders (principal) | CPT/HCPCS: 10160; 77012 ==

== ENCOUNTER 2024-04-16 08:33 | Outpatient (REF) | payer MEDICARE, BC, SELFPAY ==
--- OUTSIDE RECORDS SUMMARY | 2024-04-16 09:44 | XMS_ITS | Continuity of Care Document ---
Author Organization [facility] Address [address] [place] [address] Phone [phone] Care Team Providers Care Wave Guide Assembler Name Role Phone Ritchie Cuadra MD Care Team Information Receive r [phone] Rylee Huizar M.D. Care Team Information Rec eiver [phone] Problems Active Problems Provider Date Dyslipidemia Nataly Esteban M.D. Ons et: 06/07/2022 Osteoporosis Nataly Esteban M.D. Ons et: 06/07/2022 Fibromyalgia Nataly Esteban M.D. Ons et: 06/07/2022 Benign paroxysmal positional vertigo Nataly Wood M.D. Onset: 06/07/2022 Anxiety Nataly Esteban M.D. 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 ETOH Use Rarely consumes alcohol Tobacco Use Start: Unknown Patient has never smoked Allergies and adverse reactions Description No Known Drug Allergies Medications Active Medications SIG Qnty Indications Ordering Provider Date [id number] Tablets Take One Tablet By Mouth Every Evening Ritchie Cuadra MD [id number] Tablets Take 1 tablet at night Ritchie Cuadra MD Duloxetine [id number] Caps DR Part Take 1 capsule daily [...] Hematology Comments: TNP Comprehensive Metabolic Panl 06/09/2022 [facility] Glucose 79 mg/dL (70-99) [...] 3M2 3 Complete Abc With Diff 06/09/2022 [facility] WBC 4.9 K/MM3 (4.0-11. [...] ) Lymph # 1.2 K/MM3 (0.8-3.1 ) [place]# 0.4 K/MM3 (0.4-0.9 ) Eo # 0.1 K/MM3 (0.0-0.4 ) Baso # 0.0 K/MM3 (0.0-0.1 ) Abs. Imm Gran 0.0 K/MM3 Neut 65.6 % (44-76) Lymph 23.7 % (15-43) Monocyte 8.9 % (4.5-10. 5) Eo 1.0 % (0-6) Baso 0.6 % (0-2) Imm Gran 0.2 % Laboratory test finding 06/09/2022 [facility] 25Oh Vitamin D 32.6 NG/ML (20-50) N-Telopeptide Cross Links, Urine 06/09/2022 [facility] Cross Linked N-Telopeptides 222 4 Creat, Urine 73.2 5 N-Telopeptide/C r eat Ratio 34 6 NTX Interpretaion Comment 7 1 Vitamin D deficiency has been defined by the [employer] of [employer] and an Endocrine Society practice guideline as a level of serum 25-OH vitamin D less than 20 ng/mL (1,2). The Endocrine Society went on to further define vitamin D insufficiency as a level between 21 and 29 ng/mL (2). 1. IOM ([employer] of [employer]). 2010. Dietary reference intakes for [...] measured NTx value is <or=38 nM BCE/mM DOOR TENDER, or NTx has decreased >or=30% from baseline.[1] [...] Estab. Unit: nmol BCE Test performed at [facility], [address] [place] [address] 5 Reference range: Not Estab. Unit: mg/dL [facility], [address] [place] [address] 6 Reference range: 0 t o 89 [...] value is <or EQ 38 nM BCE/mM DOOR TENDER, or NTx has decreased >or EQ 30% [...] J Bone Min Res.11(1):M757,1996 [place] [address] Medical Devices Description No Information Available Encounters [...]
--- OUTSIDE RECORDS SUMMARY | 2024-04-16 09:44 | XMS_ITS | Clinical Summary ---
Author Organization [facility] Address [address] [place] [address] Care Team Providers Care Chain Machine Operator Name Role Phone Unavailable Primary Care Provider [...] Procedure Name Priority Date/Time Associated Diagnosis Comments [facility] SCREENING DIGITAL Routine 11/16/2023 11:46 AM EDT Encounter for screening mammogram for malignant neoplasm of breast [facility] DEXA AXIAL SKELETON Routine 10/04/2022 7:38 AM EDT Age-related osteoporosis without current pathological fracture from Last 3 Months or Most Recently Relevant to Health Maintenance Results * [facility] SCREENING DIGITAL (11/16/2023 11:46 AM EDT) Anatomical Region Laterality Modality Mammography 11/16/2023 10:1 9 AM EDT Narrative 11/16/2023 11:[address] [facility] Diagnostic Imaging Department [address] [place] [address] Patient: ??CUAUHTEMOC MAC ?/Age/Sex: 1950 - 73 - F Unit#: ??[id number] ? Location/Status: ??SPDIMAM/REG CLI ? Mnemonic/Ordering Site: ??DIGSC/SPMAM Ordering Physician: ??RYLEE HUIZAR MD [facility] Screening Digital - 11/16/23 - 1032 Report Status:Signed EXAM: [facility] Screening Digital EXAM DATE AND TIME: 11/16/2023 10:33 AM HISTORY: ??Screening. COMPARISON: ??10/03/22, 09/27/21, 09/23/20 TECHNIQUE: Bilateral digital breast tomosynthesis was performed in the CC and MLO projections. Computer aided detection with [employer] 3D 3.1 was employed. TISSUE DENSITY: b. [...] Procedure Note Johnny Reno MD - 01/09/2024 [facility] Diagnostic Imaging Department [address] [place] [address] Patient: LIDIAMIRZACUAUHTEMOC D.O.B./Age/Sex: 1950 - 73 - F Unit#: [id number] Location/Status: [facility]/REG CLI Mnemonic/Ordering Site: DIGPR/[facility] Ordering Physician: RYLEE HUIZAR MD [facility] Screening Digital - 11/16/23 - 1032 Report Status:Signed EXAM: [facility] Screening Digital EXAM DATE AND TIME: 11/16/2023 10:33 AM HISTORY: Screening. COMPARISON: 10/03/22, 09/27/21, 09/23/20 TECHNIQUE: Bilateral digital breast tomosynthesis was performed in the CCand MLO projections. Computer aided detection with [employer] 3D 3.1was employed. TISSUE DENSITY: b. There [...] AM EDT Narrative 10/04/2022 7:[address] [facility] Diagnostic Imaging Department [address] [place], [place] [address] Patient: ??CUAUHTEMOC MAC ?/Age/Sex: 1950 - 72 - F Unit#: ??[id number] ? Location/Status: ??SPDIMAM/REG CLI ? Mnemonic/Ordering Site: ??MAMDEXAAX/SPMAM Ordering Physician: ??RYLEE HUIZAR MD [facility] Dexa Axial Skeleton - 10/03/22 - 1031 [...] probability of hip fracture of 2.2%. Code 26016 Dictating Physician: ??GUSTAVO SILVERIO MD Electronically Signed by: ??GUSTAVO SILVERIO MD Dic Date/Time: ??10/04/2237 Sign date/Time: ??10/04/22 0738 Procedure Note Gustavo Silverio MD - 05/01/2023 [facility] Diagnostic Imaging Department [address] [place] [address] Patient: CUAUHTEMOC MAC D.O.B./Age/Sex: 1950 - 72 - F Unit#: [id number] Location/Status: [facility] Mnemonic/Ordering Site: [facility] Ordering Physician: RYLEE HUIZAR MD [facility] Dexa Axial Skeleton - 10/03/22 - 1031 [...] density of the femurs bilaterally is 0.839 gm/fx8fxzcj is 83% of that of young normals [...] probability of hip fracture of 2.2%. Code 49805 Dictating Physician: GUSTAVO SILVERIO MD Electronically Signed by: GUSTAVO SILVERIO MD Dic Date/Time: 10/04/22 0737 Sign date/Time: 10/04/22 0738 Rylee Huizar MD IMG BI PROCEDURES from Last 3 Months or Most Recently Relevant to Health Maintenance
--- OUTSIDE RECORDS SUMMARY | 2024-04-16 09:44 | XMS_ITS ---
Author Organization Unknown Address [address] [place] [phone] Phone Care Team Providers Care Human Service Worker Name Role Phone DOV NORWOOD Registered Nurse Unavailable TYE Souza Attending Unavailable PCP NOT SELECTED Primary Unavailable UNLISTED PROVIDER - REQUESTED Xhandoff Un available Results XR C-ARM WRIST 3V 4V RT* - C ompleted: LOINC: [facility] [place], [place] [address] [facility] FINANCIAL SPECIALIST REPORT Patient Name: RAMON MAC MRN: Sex: : Age: [id number] F 1950 73 Account: Accession: Admit: StayType: [id number] 09/07/2023 E Ordered: Order ID: Submitted: Ordering Provider: 09/07/2023 14:36 [id number] ROVERTO OSPINA Completed: Technologist: Resulted: 09/07/2023 14:44 [...] 2V RT* - Completed: 09/07/2023 15:30 LOINC: [facility] [place], [place] [id number] [place] [address] PACS FINANCIAL SPECIALIST REPORT Patient Name: RAMON MAC MRN: Sex: : Age: [id number] F 1950 73 Account: Accession: Admit: StayType: [id number] 09/07/2023 E Ordered: Order ID: Submitted: Ordering Provider: 09/07/2023 15:21 [id number] ROVERTO MEJIA Completed: Technologist: Resulted: 09/07/2023 15:25 [...] NAVICULAR RT* - Completed: 09/07/2023 13:40 LOINC: [facility] [place], [place] [id number] [place] [address] PACS FINANCIAL SPECIALIST REPORT Patient Name: RAMON MAC MRN: Sex: : Age: [id number] F 1950 73 Account: Accession: Admit: StayType: [id number] 09/07/2023 E Ordered: Order ID: Submitted: Ordering Provider: 09/07/2023 13:22 [id number] ROVERTO PANDA Completed: Technologist: Resulted: 09/07/2023 13:29 [...] Female Vital Signs Vital Sign Value Unit [place] Value [place] Unit Date/Time Recent/Initial? Code Code System Body Mass Index 22.50 kg/m2 09/07/2023 13:17 Initial 29536 -5 LOINC Systolic Blood Pressure 152 mm[Hg] 09/07/2023 13:17 Initial 8480- 6 LOINC Diastolic Blood Pressure 86 mm[Hg] 09/07/2023 13:17 Initial 8462- 4 LOINC Body Surface Area 1.60 m2 09/07/2023 13:17 Initial 3140- 1 LOINC Height 160.020 0 cm 63.00 in 09/07/2023 13:17 Initial 8302- 2 LOINC O2 Saturation 93 % 2023 13:17 Initial 64966 -5 LOINC Pulse 68.0 /min 09/07/2023 13:17 Initial 8867- 4 LOINC Respiration 15 /min 09/07/19 13:17 Initial 9279- 1 LOINC Temperature 36.4 Bhavya 97.5 F 09/07/19 13:17 Initial 8310- 5 LOINC Weight 57.61 kg 127.00 lbs 09/07/2023 13:17 Initial 21291 -7 LOINC Medications Medication Start Date End Date Route Frequency Dose Code Code System Medication Instructions Home Meds Morphine Sulfate 15MG Oral Tablet 09/07/2023 Unknown ORAL NEEDED FOUR TIMES A DAY 0.5 TABLET 600534 RxNorm TAKE 0.5 TABLET ORAL NEEDED FOUR [...] Superficial W ounds, Scalp/Neck/Axillae/Genitalia/Trunk/Extremities; 2.5 cm/< completed 86195 CPT Closed Treatment, Distal Rad ial FX /Epiphyseal Separation; w/Manipulation completed 74857 CPT Problems Problem Start Date Resolved Date Status Code Code System HYPERCHOLESTEROLEMIA 09/07/2023 resolved 96461231 SNOMED-CT FIBROMYALGIA 09/07/2023 resolved 207003856 SNOMED -CT Allergies and Adverse Reactions Allergy Substance Reaction Severity Start Date Concern Status Co de Code System No Known Allergies Active 406987459 SNO MED-CT Plan of Treatment No Data Found Encounters Encounter Diagnosis Start Date Code Code Sys tem Other intraarticular fractur e of lower end of right radius, initial encounter for closed fracture 09/07/2023 SNOMED-CT Personal Care Team Section Performer Name Performer Role Active Date Inactive Da te
[2024-04-16 17:42] LABS: MANUAL DIFF FLAG NO
[2024-04-16 17:46] LABS: Basophils Percent Auto 0.5 % (0-2); Eosinophils Absolute Auto 0.1 X10*3/uL (0.0-0.4); Eosinophils Percent Auto 1.6 % (0-4); Hematocrit 42.3 % (37.0-47.0); Hemoglobin 13.9 g/dl (12.0-16.0); Lymphocytes Percent Auto 27.7 % (20-40); Mean Corpuscular HGB Conc 32.9 g/dl (31.0-35.0); Mean Corpuscular Hemoglobin 30.5 pg (27.0-33.0); Mean Corpuscular Volume 92.8 fL (80.0-98.0); Mean Platelet Volume 11.4 fL (9.4-12.3); Monocytes Absolute Auto 0.5 X10*3/uL (0.1-1.2); Monocytes Percent Auto 13.2 % (2-11); Neutrophils Absolute Auto 2.1 x10*3/uL (2.0-8.3); Platelet Count 260 X10*3/uL (160-400); Red Blood Count 4.56 X10*6/uL (4.20-5.50); Red Cell Distribution Width 12.9 % (11.0-16.0); White Blood Count 3.7 X10*3/uL (4.8-10.8)
[2024-04-16 17:58] LABS: Alanine Aminotransferase 18 U/L (0-31); Albumin Level 4.3 g/dL (3.5-5.0); Aspartate Amino Transferase 35 U/L (5-31); Calcium 9.5 mg/dL (8.4-10.2)
[2024-04-18 07:44] LABS: Prot Elec - Albumin 4.3 g/dL (3.8-4.8); Prot Elec - Alpha1 0.3 g/dL (0.2-0.3); Prot Elec - Alpha2 0.7 g/dL (0.5-0.9); Prot Elec - Beta 1 0.4 g/dL (0.4-0.6); Prot Elec - Beta 2 0.4 g/dL (0.2-0.5); Prot Elec - Gamma 1.1 g/dL (0.8-1.7); Prot Elec - Total Protein 7.2 g/dL (6.1-8.1)
[2024-04-23 10:55] LABS: PEU-Random Urine Creatinine 63
[2024-04-23 10:56] LABS: PEU-Random Ur. Gamma Globulin 0%; PEU-Random Urine A1 Globulin 0%; PEU-Random Urine A2 Globulin 0%; PEU-Random Urine Albumin 100%; PEU-Random Urine Beta Globulin 0%
[2024-04-23 10:57] LABS: PEU-Protein Creat Ratio Rand 0.127; PEU-Rand. Prot/Creat Ratio 127
[2024-04-23 10:58] LABS: PEU-Random Urine Protein 8
== END 2024-04-16 08:34 | disposition home or self-care (01) ==
LOC: HO.HKASLDS 08:33
PROVIDERS: PCP Family Medicine; Visit Provider Internal Medicine Rheumatology
DX: R74.01 Elevation of levels of liver transaminase levels (principal); D72.819 Decreased white blood cell count, unspecified; M25.511 Pain in right shoulder; M25.512 Pain in left shoulder; M79.89 Other specified soft tissue disorders; G89.29 Other chronic pain; M70.61 Trochanteric bursitis, right hip; M70.62 Trochanteric bursitis, left hip; Z79.899 Other long term (current) drug therapy
CPT/HCPCS: 82040; 82310; 82570; 84156; 84165; 84166; 84450; 84460; 85025; 99212

== ENCOUNTER 2024-04-16 08:33 | Outpatient (AMB) | payer MEDICARE, BC, SELFPAY ==
[2024-04-16 08:37] VITALS: BP 120/68; PULSE 76; O2SAT 96; BMI 22.9
--- NOTE | 2024-04-16 08:37 | A.OFFVIS_ITS ---
Vital Signs 04/16/24 08:37 Height 5 ft 3 in Weight 129 lb 2 oz BMI 22.9 BP 120/68 Blood Pressure Location Lt brachial Position Sitting Pulse 76 Pulse Source Pulse Oximeter Pulse Oximetry (%) 96 Oxygen Delivery Method Room Air Intake Visit Reasons: Follow Up 1mo Intake Note: Patient presents today for follow up on procedure, blood work and x-rays. She last saw Dr. Duran in the office on 02/28/2024. Allergies No Known Allergies Allergy (Verified 04/16/24 08:40) HPI HPI Follow Up 1mo: Details: She continues to have right shoulder pain with movements. She has modified her exercise regimen to reduce pain. Yesterday she took ibuprofen due to wrist pain. She is going to physical therapy for trochanteric bursitis. She continues to do exercises at home. She has not self medicating regularly for pain control. No change in swelling in the clavicular region. [facility] Medical History (Updated 04/16/24 @ 09:17 by Darrion Duran MD) Myofascial pain Fibromyalgia Surgical History (Updated 02/28/24 @ 11:37 by Zakiya Adler CMA) History of carpal tunnel surgery H/O right wrist surgery Family History (Updated 02/28/24 @ 11:39 by Zakiya Adler CMA) Father Heart attack Mother Advanced dementia Social History (Updated 02/28/24 @ 11:40 by Zakiya Adler CMA) Alcohol intake: current Alcohol intake frequency: holidays/special occasions only Patient Tobacco Use Status: Never used Tobacco Review of Systems Const All systems reviewed & are unremarkable except as noted in HPI and below Physical Exam Vital Signs: Last Vital Signs Pulse 76 04/16/24 08:37 BP 120/68 04/16/24 08:37 Pulse Ox 96 04/16/24 08:37 Oxygen Delivery Method Room Air 04/16/24 08:37 BMI result Body Mass Index 22.9 Const Other: General: Comfortable Skin: No lesions seen MSK: She has soft tissue swelling without tenderness right sternoclavicular sternoclavicular joint. There is no warmth or discoloration. Tender to palpate bilateral shoulders. Pain with range of motion of shoulders but range of motion is intact. Results Reviewed Results Reviewed: Labs from 03/14/2024 reviewed. Assessment & Plan Assessment & Plan (1) Swelling of clavicular region: Comment: Chronic right sternoclavicular joint swelling could be secondary to osteoarthritis. CT-guided aspiration was attempted but no synovial fluid was aspirated. She has normal inflammatory markers, negative for hepatitis-B and C serologies and T spot. Recent labs that were performed revealed mild leukopenia and mild transaminitis. At this time I do not have a definite diagnosis for etiology of chronic right sternoclavicular joint swelling. We discussed conservative management with NSAID as she has not tried regular NSAID. I will be repeating labs. Shoulder x-rays were personally reviewed with patient, which reveal circular lesion right glenohumeral head -radiology read is pending. Answered patient's questions. Code(s): M79.89 - Other specified soft tissue disorders Category: Medical Plan: Start meloxicam 15 mg daily CBC, AST, ALT, SPEP, UPEP and calcium ordered My product manager medical device called Radiology to request that read. We will contact patient as soon as we have formal report. Return to clinic in 3 months (2) Transaminitis: Code(s): R74.01 - Elevation of levels of liver transaminase levels Category: Medical Plan: See above (3) Leucopenia: Code(s): D72.819 - Decreased white blood cell count, unspecified Category: Medical Qualifiers: Leukopenia type: unspecified Qualified Code(s): D72.819 - Decreased white blood cell count, unspecified Plan: See above (4) Shoulder pain: Comment: Bilateral exacerbated with activity. I suspect chronic rotator cuff tendinopathy but can not exclude osteoarthritis contributing. X-ray right shoulder reveals circular lesion on glenohumeral head With formal read pending Code(s): M25.519 - Pain in unspecified shoulder Category: Medical Qualifiers: Chronicity: chronic Plan: She will continue to be cautious when exercising Start meloxicam 15 mg daily Requested stat read right shoulder x-ray from radiology Can consider adding physical therapy after right shoulder x-ray report is available Return to clinic in 3 months (5) Greater trochanteric bursitis of both hips: Comment: Bilateral. She started physical therapy Code(s): M70.61 - Trochanteric bursitis, right hip; M70.62 - Trochanteric bursitis, left hip Category: Medical Plan: Continue physical therapy Orders: Orders Alanine Aminotransferase Today D72.819 - Decreased white blood cell count, unspecified Aspartate Amino Transferase Today R74.01 - Elevation of levels of liver transaminase levels Calcium Today D72.819 - Decreased white blood cell count, unspecified, M25.519 - Pain in unspecified shoulder Albumin Level Today D72.819 - Decreased white blood cell count, unspecified, M25.519 - Pain in unspecified shoulder Complete Blood Count Auto Diff Today D72.819 - Decreased white blood cell count, unspecified, R74.01 - Elevation of levels of liver transaminase levels Protein Electrophoresis, Serum Today M25.519 - Pain in unspecified shoulder Protein Electrophoresis,Ran Ur Today D72.819 - Decreased white blood cell count, unspecified Medications: Changed From meloxicam 15 mg PO DAILY To meloxicam Take with food 15 mg PO DAILY 30 tabs 2RF Coding Level of Care Code Est Pt Level 4 (47106) Complex EM visit Add On G2211 Diagnoses Swelling of clavicular region M79.89 Transaminitis R74.01 Leukopenia, unspecified type D72.819 Leukopenia type: unspecified Shoulder pain M25.519 Chronicity: chronic Greater trochanteric bursitis of both hips M70.61; M70.62
--- OUTSIDE RECORDS SUMMARY | 2024-04-16 08:46 | XMS_ITS ---
Author Organization Unknown Address [address] [place] [address] [phone] Phone Care Team Providers Care Casing Builder Name Role Phone ODV NORWOOD Registered Nurse Unavailable TYE Souza Attending Unavailable PCP NOT SELECTED Primary Unavailable UNLISTED PROVIDER - REQUESTED Xhandoff Un available Results XR C-ARM WRIST 3V 4V RT* - C ompleted: LOINC: [facility] RADI[facility] [place], [place] [address] [facility] DOUGH BRAKER REPORT Patient Name: RAMON MAC MRN: Sex: : Age: [id number] F 1950 73 Account: Accession: Admit: StayType: [id number] 09/07/2023 E Ordered: Order ID: Submitted: Ordering Provider: 09/07/2023 14:36 [id number] ROVERTO OSPINA Completed: Technologist: Resulted: 09/07/2023 14:44 [...] 2V RT* - Completed: 09/07/2023 15:30 LOINC: [facility] [place], [place] [id number] [place] [address] [facility] DOUGH BRAKER REPORT Patient Name: RAMON MAC MRN: Sex: : Age: [id number] F 1950 73 Account: Accession: Admit: StayType: [id number] 09/07/2023 E Ordered: Order ID: Submitted: Ordering Provider: 09/07/2023 15:21 [id number] ROVERTO MEJIA Completed: Technologist: Resulted: 09/07/2023 15:25 [...] NAVICULAR RT* - Completed: 09/07/2023 13:40 LOINC: [facility] [place], [place] [id number] [place] [address] [facility]ACS DOUGH BRAKER REPORT Patient Name: RAMON MAC MRN: Sex: : Age: [id number] F 1950 73 Account: Accession: Admit: StayType: [id number] 09/07/2023 E Ordered: Order ID: Submitted: Ordering Provider: 09/07/2023 13:22 [id number] ROVERTO PANDA Completed: Technologist: Resulted: 09/07/2023 13:29 [...] Female Vital Signs Vital Sign Value Unit [place] Value [place] Unit Date/Time Recent/Initial? Code Code System Body Mass Index 22.50 kg/m2 09/07/2023 13:17 Initial 29339 -5 LOINC Systolic Blood Pressure 152 mm[Hg] 09/07/2023 13:17 Initial 8480- 6 LOINC Diastolic Blood Pressure 86 mm[Hg] 09/07/2023 13:17 Initial 8462- 4 LOINC Body Surface Area 1.60 m2 09/07/2023 13:17 Initial 3140- 1 LOINC Height 160.020 0 cm 63.00 in 09/07/2023 13:17 Initial 8302- 2 LOINC O2 Saturation 93 % 2023 13:17 Initial 22254 -5 LOINC Pulse 68.0 /min 09/07/2023 13:17 Initial 8867- 4 LOINC Respiration 15 /min 09/07/19 13:17 Initial 9279- 1 LOINC Temperature 36.4 Bhavya 97.5 F 09/07/19 13:17 Initial 8310- 5 LOINC Weight 57.61 kg 127.00 lbs 09/07/2023 13:17 Initial 00759 -7 LOINC Medications Medication Start Date End Date Route Frequency Dose Code Code System Medication Instructions Home Meds Morphine Sulfate 15MG Oral Tablet 09/07/2023 Unknown ORAL NEEDED FOUR TIMES A DAY 0.5 TABLET 555979 RxNorm TAKE 0.5 TABLET ORAL NEEDED FOUR [...] Superficial W ounds, Scalp/Neck/Axillae/Genitalia/Trunk/Extremities; 2.5 cm/< completed 77437 CPT Closed Treatment, Distal Rad ial FX /Epiphyseal Separation; w/Manipulation completed 14401 CPT Problems Problem Start Date Resolved Date Status Code Code System HYPERCHOLESTEROLEMIA 09/07/2023 resolved 95356909 SNOMED-CT FIBROMYALGIA 09/07/2023 resolved 421939519 SNOMED -CT Allergies and Adverse Reactions Allergy Substance Reaction Severity Start Date Concern Status Co de Code System No Known Allergies Active 757413986 SNO MED-CT Plan of Treatment No Data Found Encounters Encounter Diagnosis Start Date Code Code Sys tem Other intraarticular fractur e of lower end of right radius, initial encounter for closed fracture 09/07/2023 SNOMED-CT Personal Care Team Section Performer Name Performer Role Active Date Inactive Da te
--- OUTSIDE RECORDS SUMMARY | 2024-04-16 08:46 | XMS_ITS | Continuity of Care Document ---
Author Organization [facility] Address [address] [place] [address] Phone [phone] Care Team Providers Care Engraver Hand [employer]als Name Role Phone Ritchie Cuadra MD Care Team Information Receive r [phone] Rylee Huizar M.D. Care Team Information Rec eiver [phone] Problems Active Problems Provider Date Dyslipidemia Nataly Esteban M.D. Ons et: 06/07/2022 Osteoporosis Nataly Esteban M.D. Ons et: 06/07/2022 Fibromyalgia Nataly Esteban M.D. Ons et: 06/07/2022 Benign paroxysmal positional vertigo Nataly Wood M.D. Onset: 06/07/2022 Anxiety Nataly Esteban M.D. 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 ETOH Use Rarely consumes alcohol Tobacco Use Start: Unknown Patient has never smoked Allergies and adverse reactions Description No Known Drug Allergies Medications Active Medications SIG Qnty Indications Ordering Provider Date Wykycrrgvwm23wx Tablets Take One Tablet By Mouth Every Evening Ritchie Cuadra MD Dbwyiatujv093xb Tablets Take 1 tablet at night Ritchie Cuadra MD Duloxetine SYD64ll Caps DR Part Take 1 capsule daily [...] Hematology Comments: TNP Comprehensive Metabolic Panl 06/09/2022 [facility] Reference Lab Glucose 79 mg/dL (70-99) [...] 3M2 3 Complete Abc With Diff 06/09/2022 [facility] Reference Lab WBC 4.9 K/MM3 (4.0-11. [...] ) Lymph # 1.2 K/MM3 (0.8-3.1 ) [place]# 0.4 K/MM3 (0.4-0.9 ) Eo # 0.1 K/MM3 (0.0-0.4 ) Baso # 0.0 K/MM3 (0.0-0.1 ) Abs. Imm Gran 0.0 K/MM3 Neut 65.6 % (44-76) Lymph 23.7 % (15-43) Monocyte 8.9 % (4.5-10. 5) Eo 1.0 % (0-6) Baso 0.6 % (0-2) Imm Gran 0.2 % Laboratory test finding 06/09/2022 [facility] Reference Lab 25Oh Vitamin D 32.6 NG/ML (20-50) N-Telopeptide Cross Links, Urine 06/09/2022 [facility] Reference Lab Cross Linked N-Telopeptides 222 4 Creat, Urine 73.2 5 N-Telopeptide/C r eat Ratio 34 6 NTX Interpretaion Comment 7 1 Vitamin D deficiency has been defined by the [place] of [employer] and an Endocrine Society practice guideline as a level of serum 25-OH vitamin D less than 20 ng/mL (1,2). The Endocrine Society went on to further define vitamin D insufficiency as a level between 21 and 29 ng/mL (2). 1. IOM ([place] of [employer]). 2010. Dietary reference intakes for [...] measured NTx value is <or=38 nM BCE/mM FILTRATION SUPERVISOR, or NTx has decreased >or=30% from baseline.[1] [...] Estab. Unit: nmol BCE Test performed at [facility], [address] [place] [address] 5 Reference range: Not Estab. Unit: mg/dL [facility], [address] [place] [address] 6 Reference range: 0 t o 89 [...] value is <or EQ 38 nM BCE/mM FILTRATION SUPERVISOR, or NTx has decreased >or EQ 30% [...] J Bone Min Res.11(1):M757,1996 [place] [address] Medical Devices Description No Information Available Encounters [...]
--- OUTSIDE RECORDS SUMMARY | 2024-04-16 08:47 | XMS_ITS ---
Author Organization [employer] Address [address] [place] [address] Care Team Providers Care Armature Repairer Name Role Phone DR JAKE GABRIEL Primary Care Provider Rylee Mathias Unavailable [phone] REASON FOR VISIT FYI - COLOGARD Encounters Encounter Location Date Provider Diagnosis [facility] [employer] [address] [place] [address] [address] [place] [address] 08/24/2023 Rylee Huizar Plan Of Treatment Next Appt Details Provider Name:Rylee dotson, 08/13/2024 08:20:00 AM, [address], [facility] [address], [place], [address], Progress Notes * LIDIAMIRZARAMONDOB:1950 (73 yo F)Acc No.[id number]:08/24/2023 Patient:?BUBBA RAMON :1950???Age:73 Y???Sex:Female Address:[address] [place] [address] , [place], [address] * true * Date:? Generated for Printi ng/Fanatig/eTransmitting on:?04/16/2024 08:46 AM EST
--- OUTSIDE RECORDS SUMMARY | 2024-04-16 08:47 | XMS_ITS ---
Author Organization [employer] [facility] Address [address] [place] [address] Care Team Providers Care Ip Attorney Name Role Phone DR JAKE GABRIEL Primary Care Provider Rylee Mathias Unavailable [phone] REASON FOR VISIT COLOGARD REQUEST Encounters Encounter Location Date Provider Diagnosis [facility] [employer] [address] [place] [address] [address] [place] [address] 08/07/2023 Rylee Huizar Plan Of Treatment Next Appt Details Provider Name:Rylee dotson, 08/13/2024 08:20:00 AM, [address], [address], [place], [address], Progress Notes * RAMON MACDOB:1950 (73 yo F)Acc No.[id number]:08/07/2023 Patient:?BUBBA RAMON :1950???Age:73 Y???Sex:Female Address:[address] [place] [address] , [place], [address] * true * Date:? Generated for Printi daysi/Kali/eTransmitting on:?04/16/2024 08:47 AM EST
--- OUTSIDE RECORDS SUMMARY | 2024-04-16 08:47 | XMS_ITS | Clinical Summary ---
Author Organization [facility] ity Address [address] [place] [address] Care Team Providers Care Biomathematician Name Role Phone Unavailable Primary Care Provider Unavailabl e Social History Tobacco Use Types Packs/Day Years Used Date Smoking Tobacco: Never Assessed Sex and Gender Information Value Date Recorded Sex Assigned at Not on file Gender Identity Not on file Sexual Orientation Not on file Plan of Treatment Health Maintenance Due Date Last Done Comments DTaP,Tdap,and Td Vaccines (1 - Tdap) 1969 Zoster Vaccines (1 of 2) 2000 Pneumococcal Vaccine: 65+ Years (1 of 1 - PCV) 06/14/2015 Colorectal Cancer Screening: Colonoscopy 02/26/2022 Depression Screening 02/26/2022 Falls Risk Assessment 02/26/2022 Hepatitis C Screening 02/26/2022 Social Influencers of Health Screening 02/26/2022 COVID-19 Vaccine (1 - 2023- season) 2023 Influenza Vaccine (#1) 2023 RSV Immunization Patients 60+ Years Old (1 - 1-dose 75+ series) 2025 Breast Cancer Screening 11/15/2025 11/16/19 24, 10/04/2022, 09/27/2021, Additional history exists Osteoporosis Screening (Bone Density Screening) 10/04/2032 10/04/2022, 09/23/2020, 08/06/2018 HIB Vaccines Aged Out No longer eligi ble based on patient's age to complete this topic HPV Vaccines Aged Out No longer eligi ble based on patient's age to complete this topic Hepatitis A Vaccines Aged Out No long er eligible based on patient's age to complete this topic Hepatitis B Vaccines Aged Out No long er eligible based on patient's age to complete this topic IPV Vaccines Aged Out No longer eligi ble based on patient's age to complete this topic MMR Vaccines Aged Out No longer eligi ble based on patient's age to complete this topic Meningococcal ACWY Vaccine Aged Out N o longer eligible based on patient's age to complete this topic RSV Immunization Patients Under 20 months Aged Out No longer eligible based on patient's age to complete this topic Varicella Vaccines Aged Out No longer eligible based on patient's age to complete this topic Procedures Procedure Name Priority Date/Time Associated Diagnosis Comments [facility] SCREENING DIGITAL Routine 11/16/2023 11:46 AM EDT Encounter for screening mammogram for malignant neoplasm of breast [facility] DEXA AXIAL SKELETON Routine 10/04/2022 7:38 AM EDT Age-related osteoporosis without current pathological fracture from Last 3 Months or Most Recently Relevant to Health Maintenance Results * [facility] SCREENING DIGITAL (11/16/2023 11:46 AM EDT) Anatomical Region Laterality Modality Mammography 11/16/2023 10:1 9 AM EDT Narrative 11/16/2023 11:46 AM EDT [facility] Diagnostic Imaging Department [address] [place] [address] Patient: ??CUAUHTEMOC MAC ?/Age/Sex: 1950 - 73 - F Unit#: ??[id number] ? Location/Status: ??SPDIMAM/REG CLI ? Mnemonic/Ordering Site: ??DIGSC/SPMAM Ordering Physician: ??RYLEE HUIZAR MD [facility] Screening Digital - 11/16/23 - 1032 Report Status:Signed EXAM: [facility] Screening Digital EXAM DATE AND TIME: 11/16/2023 10:33 AM HISTORY: ??Screening. COMPARISON: ??10/03/22, 09/27/21, 09/23/20 TECHNIQUE: Bilateral digital breast tomosynthesis was performed in the CC and MLO projections. Computer aided detection with [employer] 3D 3.1 was employed. TISSUE DENSITY: b. There are scattered areas of fibroglandular density. FINDINGS: No suspicious masses, grouped microcalcifications, or areas of architectural distortion are seen. A coarse, benign calcification is again seen in the anterior left breast. The skin and vascularity are unremarkable. IMPRESSION: Stable mammographic appearance of the breasts. ??No evidence of malignancy is seen. A negative mammogram in the presence of a clinically suspicious palpable abnormality does not preclude the possibility of malignancy or alter the indications for biopsy. BI-RADS: ??Category 2: Benign RECOMMENDATION(S): 1: Routine screening mammogram BILATERAL in 1 year. Dictating Physician: ??JOHNNY RENO MD Electronically Signed by: ??JOHNNY RENO MD Dic Date/Time: ??11/16/23 1145 Sign date/Time: ??11/16/23 1146 Procedure Note Johnny Reno MD - 01/09/2024 [facility] Diagnostic Imaging Department [address] [place] [address] Patient: LIDIAMIRZACUAUHTEMOC D.O.B./Age/Sex: 1950 - 73 - F Unit#: [id number] Location/Status: [facility]/REG CLI Mnemonic/Ordering Site: DIGID/[facility] Ordering Physician: RYLEE HUIZAR MD [facility] Screening Digital - 11/16/23 - 1032 Report Status:Signed EXAM: [facility] Screening Digital EXAM DATE AND TIME: 11/16/2023 10:33 AM HISTORY: Screening. COMPARISON: 10/03/22, 09/27/21, 09/23/20 TECHNIQUE: Bilateral digital breast tomosynthesis was performed in the CCand MLO projections. Computer aided detection with [employer] 3D 3.1was employed. TISSUE DENSITY: b. There are scattered areas of fibroglandular density. FINDINGS: No suspicious masses, grouped microcalcifications, or areas ofarchitectural distortion are seen. A coarse, benign calcification is again seen in the anterior left breast. The skin and vascularity are unremarkable. IMPRESSION: Stable mammographic appearance of the breasts. No evidence of malignancyis seen. A negative mammogram in the presence of a clinically suspicious palpable abnormality does not preclude the possibility of malignancy or alter the indications for biopsy. BI-RADS: Category 2: Benign RECOMMENDATION(S): 1: Routine screening mammogram BILATERAL in 1 year. Dictating Physician: JOHNNY RENO MD Electronically Signed by: JOHNNY RENO MD Dic Date/Time: 11/16/23 1145 Sign date/Time: 11/16/23 1146 Rylee Huizar MD IMG BI PROCEDURES * [facility] DEXA AXIAL SKELETON (10/04/2022 7:38 AM EDT) Anatomical Region Laterality Modality Mammography 10/03/2022 10:1 0 AM EDT Narrative 10/04/2022 7:38 AM EDT [facility] Diagnostic Imaging Department [address] [place], [place] [id number] Patient: ??CUAUHTEMOC MAC ?/Age/Sex: 1950 - 72 - F Unit#: ??[id number] ? Location/Status: ??SPDIMAM/REG CLI ? Mnemonic/Ordering Site: ??MAMDEXAAX/SPMAM Ordering Physician: ??RYLEE HUIZAR MD [facility] Dexa Axial Skeleton - 10/03/22 - 1031 Report Status:Signed HISTORY: ??The patient is a 72-year-old postmenopausal female with clinical concern for metabolic bone disease. FINDINGS: ??Dual energy x-ray absorptiometry of the lumbar spine and femurs is performed. The mean bone mineral density at L1-2 is 0.866 gm/cm2 which is 74% of that of young normals and 93% of that of age matched controls. This yields a T- score of -2.5 and a Z-score of -0.6 which is diagnostic of osteoporosis. The mean bone mineral density of the femurs bilaterally is 0.839 gm/cm2 which is 83% of that of young normals and 106% of that of age matched controls. ??This yields a T-score of -1.3 and a Z-score of 0.4 which is diagnostic of osteopenia. IMPRESSION: 1. Osteoporosis. ??There has been an increase of 5.1% in bone mineral density in the lumbar spine since the prior examination of 09/23/2020. ??There has been an increase of 3.1% in bone mineral density in the right femur and an increase of 4.4% in bone mineral density in the left femur. 2. FRAX analysis yields a 10-year probability of major osteoporotic fracture of 10.9% and a 10-year probability of hip fracture of 2.2%. Code 37108 Dictating Physician: ??GUSTAVO SILVERIO MD Electronically Signed by: ??GUSTAVO SILVERIO MD Dic Date/Time: ??10/04/2237 Sign date/Time: ??10/04/22 0738 Procedure Note Gustavo Silverio MD - 05/01/2023 [facility] Diagnostic Imaging Department [address] [place] [address] Patient: CUAUHTEMOC MAC D.O.B./Age/Sex: 1950 - 72 - F Unit#: [id number] Location/Status: [facility] Mnemonic/Ordering Site: [facility] Ordering Physician: RYLEE HUIZAR MD [facility] Dexa Axial Skeleton - 10/03/22 - 1031 Report Status:Signed HISTORY: The patient is a 72-year-old postmenopausal female withclinical concern for metabolic bone disease. FINDINGS: Dual energy x-ray absorptiometry of the lumbar spine and femursis performed. The mean bone mineral density at L1-2 is 0.866 gm/cm2 which is74% of that of young normals and 93% of that of age matched controls. This yieldsa T- score of -2.5 and a Z-score of -0.6 which is diagnostic of osteoporosis. The mean bone mineral density of the femurs bilaterally is 0.839 gm/fl9drvyp is 83% of that of young normals and 106% of that of age matched controls.This yields a T-score of -1.3 and a Z-score of 0.4 which is diagnostic ofosteopenia. IMPRESSION: 1. Osteoporosis. There has been an increase of 5.1% in bone mineraldensity in the lumbar spine since the prior examination of 09/23/2020. There has beenan increase of 3.1% in bone mineral density in the right femur and anincrease of 4.4% in bone mineral density in the left femur. 2. FRAX analysis yields a 10-year probability of major osteoporoticfracture of 10.9% and a 10-year probability of hip fracture of 2.2%. Code 89488 Dictating Physician: GUSTAVO SILVERIO MD Electronically Signed by: GUSTAVO SILVERIO MD Dic Date/Time: 10/04/22 0737 Sign date/Time: 10/04/22 0738 Rylee Huizar MD IMG BI PROCEDURES from Last 3 Months or Most Recently Relevant to Health Maintenance
--- OUTSIDE RECORDS SUMMARY | 2024-04-16 08:47 | XMS_ITS | Patient Health Record ---
Author Organization [facility] Address [address] [place] [address] Care Team Providers Care Sociology Adjunct Instructor Name Role Phone DR JAKE GABRIEL Primary Care Provider Unavail able Ryele Huizar Unavailable [phone] Allergies No Known Allergies Reason For Referral No Information Medications Medication SIG (Take, Route, Frequency, Duration) Notes Start Date End Date Status Gabapentin 600 MG Oral for 90 Active DULoxetine HCl 60 MG Oral for 90 Active Simvastatin 40 MG Oral for 90 Active Vitamin D 25 MCG (1000 UT) 1 tablet Orally Every other day Active Melatonin 10 MG as directed Orally Active Reclast 5 MG/100ML as directed Intravenous Done 08/06/23 Active Calcium Chews Active Problems Problem Type SNOMED Code ICD Code Onset Dates Problem Status W/U Status Risk Notes Problem Postmenopausal atrophic vaginitis (59379332) Postmenopausal atrophic vaginitis (N95.2) Active confirmed Problem Age-related osteoporosis (604392574) Age-related osteoporosis without current pathological fracture (M81.0) Active confirmed Problem Depressive disorder (04387141) Depressive disorder, not elsewhere classified (311) Active confirmed Major Problem Menopausal symptom (04526202) Symptomatic menopausal or female climacteric states (627.2) Active confirmed Major Problem Muscle pain (21216412) Unspecified myalgia and myositis (729.1) Active confirmed Major Problem Osteoporosis (92259132) Unspecified osteoporosis (733.00) Active confirmed Diag Problem Disorder of bone and articular cartilage (disorder) (064436037) Disorder of bone and cartilage, unspecified (733.90) Active confirmed Diag Problem Gynecological examination normal (995753697408236) Routine gynecological examination (V72.31) Active confirmed Major Problem Screening for malignant neoplasm of colon (228547322) Special screening for malignant neoplasms, colon (V76.51) Active confirmed Major Vital Signs Temperature 97.3 degrees Fahrenheit 08/07/2023 Blood pressure diastolic 86 mm Hg 08/07/2023 Height 62.50 in 08/07/2023 Blood pressure systolic 128 mm Hg 08/07/2023 Weight 128 lbs 08/07/2023 BMI 23.04 kg/m2 08/07/2023 Encounters Encounter Location Date Provider Diagnosis [facility] [address] [employer] [address] [address] 08/07/2023 Rylee Huizar Encounter for gynecological examination (general) (routine) with abnormal findings Z01.411 ; Encounter for screening mammogram for malignant neoplasm of breast Z12.31 ; Age-related osteoporosis without current pathological fracture M81.0 and Postmenopausal atrophic vaginitis N95.[address] [address] 08/07/2023 Rylee Huizar [address] [address] 08/24/2023 Rylee Huizar Assessments Encounter Date Diagnosis (ICD Code) Assessment Notes Treatment Notes Treatment Clinical Notes Section Notes 08/07/2023 Encounter for gynecological examination (general) (routine) with abnormal findings (ICD-10 - Z01.411) NO MORE PAP TESTS. 08/07/2023 Encounter for screening mammogram for malignant neoplasm of breast (ICD-10 - Z12.31) REGULAR MAMMOGRAMS AND SBE'S WERE RECOMMENDED. 08/07/2023 Age-related osteoporosis without current pathological fracture (ICD-10 - M81.0) DISCUSSED HER LAST BMD AND OSTEOPOROSIS AND ITS IMPACT ON HER HEALTH. ADEQUATE CALCIUM AND VIT D. WEIGHT BEARING EXERCISES. OSTEO PRECAUTIONS. REPEAT BMD IN 2024. CONTINUE CARE WITH DR BONG MAYER. 08/07/2023 Postmenopausal atrophic vaginitis (ICD-10 - N95.2) DISCUSSED FINDINGS, DX AND TX OPTIONS. PAT IS ASYMPTOMATIC. Plan Of Treatment Pending Test Test Name Order Date MAMMOGRAM, SCREENING 04/30/2019 MAMMOGRAM, SCREENING 05/12/2020 MAMMOGRAM, SCREENING 05/18/2021 MAMMOGRAM, SCREENING 07/31/2022 MAMMOGRAM, SCREENING 05/28/2015 Urinalysis 05/12/2020 Urinalysis 02/26/2018 Urinalysis 04/30/2019 1,25OH VITAMIN D 07/13/2016 COMPREHENSIVE METABOLIC PANEL 07/13/2016 N-TELOPEPTIDE CROSS 07/13/2016 PTH, INTACT 07/13/2016 TSH 07/13/2016 BONE DENSITY 05/12/2020 BONE DENSITY 07/31/2022 MM Digital Mammo Screening 08/07/2023 MM Digital Mammo Screening 04/30/2019 MM Digital Mammo Screening 05/12/2020 MM Digital Mammo Screening 07/31/2022 MM Digital Mammo Screening 05/18/2021 Next Appt Details Provider Name:Rylee Torsten dotson, 08/13/2024 08:20:00 AM, [address], [address], [place], [address], Insurance Providers Payer Name Payer Address Payer Phone Subscriber Number Group Number Insured Name Patient Relationship to Insured Coverage Start Date Coverage End Date MEDICARE [address] [facility] [place] [id number] [phone] [id number] RAMON MAC Self - patient is the insured MED[employer] [address] [place] [address] [phone] [id number] RAMON MAC Self - patient is the insured Medications Administered Medication Instructions Date of Administration Dosage Notes PROLIA 09/27/2016 60 mg Right arm PROLIA 08/22/2017 60 mg PROLIA 02/26/2018 60 mg PROLIA 08/27/2018 60 mg Medical (General) History Medical History History ICD Code Disorder of bone density and structure, unspecified M85.9 Age-related osteoporosis without current pathological fracture M81.0 Major depressive disorder, single episod e, unspecified F32.9 Fibromyalgia M79.7 Menopausal and female climacteric states N95.1 Postmenopausal atrophic vaginitis N95.2 Inconclusive mammogram R92.2 Mammographic heterogeneous density, bila teral breasts R92.333 Surgical History Surgery Date(Month/Year) Bilateral Carpal Tunnel Surgery Colonoscopy Laparoscopy Hospitalization History Reason Date(Month/Year) See Surgical Hx 2 Vaginal Deliveries
--- OUTSIDE RECORDS SUMMARY | 2024-04-16 08:47 | XMS_ITS ---
Author Organization [facility] Address [address] [address] Care Team Providers Care Licensed Clinical Social Worker Name Role Phone DR JAKE GABRIEL Primary Care Provider Unavail Rylee Castañeda Unavailable [phone] Allergies No Known Allergies REASON FOR VISIT INTERVAL BREAST & PELVIC Medications Medication SIG (Take, Route, Frequency, Duration) Notes Start Date End Date Status DULoxetine HCl 60 MG Oral for 90 Active Vitamin D 25 MCG (1000 UT) 1 tablet Orally Every other day Active Melatonin 10 MG as directed Orally Active Reclast 5 MG/100ML as directed Intravenous Done 08/06/23 Active Calcium Chews Active Gabapentin 600 MG Oral for 90 Active Simvastatin 40 MG Oral for 90 Active Vital Signs Temperature 97.3 degrees Fahrenheit 08/07/19 24 Blood pressure systolic 128 mm Hg 08/07/19 24 Blood pressure diastolic 86 mm Hg 024 Height 62.50 in 08/07/2023 Weight 128 lbs 08/07/2023 BMI 23.04 kg/m2 08/07/2023 Encounters Encounter Location Date Provider Diagnosis [facility] [address] [address] 08/07/2023 Rylee Huizar Encounter for gynecological examination (general) (routine) with abnormal findings Z01.411 ; Encounter for screening mammogram for malignant neoplasm of breast Z12.31 ; Age-related osteoporosis without current pathological fracture M81.0 and Postmenopausal atrophic vaginitis N95.2 Assessments Encounter Date Diagnosis (ICD Code) Assessment [...] OPTIONS. PAT IS ASYMPTOMATIC. Plan Of Treatment Treatment Notes Assessment Notes Encounter for gynecological examination (general) (routine) with abnormal findings NO MORE PAP TESTS. Encounter for screening mamm ogram for malignant neoplasm of breast REGULAR MAMMOGRAMS AND SBE'S WERE RECOMMENDED. Age-related osteoporosis wit hout current pathological fracture DISCUSSED HER LAST BMD AND OSTEOPOROSIS AND ITS IMPACT ON HER HEALTH. ADEQUATE CALCIUM AND VIT D. WEIGHT BEARING EXERCISES. OSTEO PRECAUTIONS. REPEAT BMD IN 2024. CONTINUE CARE WITH DR BONG MAYER. Postmenopausal atrophic vaginitis DISCUSSED FINDINGS, DX AND TX OPTIONS. PAT IS ASYMPTOMATIC. Pending Test Test Name Order Date MM Digital Mammo Screening 08/07/2023 Next Appt Details Follow Up: 1 Year, Reason: Provider Name:Rylee dotson, 08/13/2024 08:20:00 AM, [address] [place] [address], [facility] [address], [place], [address], Progress Notes * RAMON MACDOB:1950 (73 yo F)Acc No.[id number]:08/07/2023 PROGRESS NOTES Patient:?RAMON MAC Appointment Provider:?Rylee dotson M.D. :1950???Age:73 Y???Sex:Female D ate:08/07/2023 Address:[address] [place], [place] [id number] Pcp:DR JAKE GABRIEL Subjective: * Chief Complaints: * ???INTERVAL BREAST & PELVIC * HPI: ???New/Follow-up Patient Consult:? PAT ENTERED MENOPAUSE IN 1999.? SHE? LOST HER IN 2020.? SHE IS NOT SEXUALLY ACTIVE. SHE IS KNOWN TO BE OSTEOPOROTIC AND SEES DR BONG MAYER.? SHE HAD BEEN ON PROLIA AND IS NOW ON RECLAST.? SHE IS TOLERATING THIS WELL.? SHE HAS NO HX OF FRACTURES.? HER LAST BMD IN 2022 SHOWED THE LOWEST T-SCORE TO BE -2.5 AT [facility].? THIS WAS - 2.8 IN 2020. HER MAMMOGRAM DONE IN 2021 SHOWED BREASTS ARE NOT DENSE AND WAS NORMAL.? HER MAMMOGRAMS USED TO SHOW DENSE BREASTS AND HER BREAST CA RISK IS 12.4%.? SHE HAD ANOTHER MAMMOGRAM IN 2022.? WE WILL GET THE RESULTS. HER LAST PAP TEST IN 2019 WAS NEGATIVE AND HPV NEGATIVE. SHE HAD A COLONOSCOPY DONE IN 2013 AND AGREED TO PROCEED WITH COLOGUARD TESTING. MODERNA X 3. * ROS:?general:?no?chest pain.?no?palpitations.?no?headache.?no?cough.?no?shortness of breath.?no?fever.?no?unexplained weight loss.?no?nausea/vomiting.?no?change in bowel movements.?no blood in stool.?no?genitourinary complaints.?no?skin complaints.? * Medical History:? * Lamination Technician History:?/ Para?2/2.?Sexual activity?not currently sexually active.?Last Pap Smear:?04/30/19 NIL, NEG HPV, 05/28/2015 , neg, NEG HRHPV.?Mammogram:?09/2022 [facility], 09/27/21 < 50% density, 09/23/20 < 50% density, 08/05/18 50-75% density, 08/01/2017 normal, 06/30/16 50-75% density, 06/29/2015 < 50% density, normal, 04/22/14, normal.?LMP and menses?[place] 1999.? Control:?None.?Menopause: ?Began at age: ?49 ???Colonoscopy?2013.?Bone Density:?10/03/22, 09/23/20, 08/05/18, 06/30/16, 04/22/14.? * OB History:?Total pregnancies?2.?Total living children?2.?NVD?2.? * Surgical History:?Bilateral Carpal Tunnel Surgery Colonoscopy Laparoscopy * Hospitalization/Major Diagno stic Procedure:?2 Vaginal Deliveries See Surgical Hx * Family History:?Mother: dece ased 89 yrs, Dementia.?Father: , In his 50's. Coronary Artery Disease.? Half Sister: Breast Cancer. * Social History:?Tobacco Use:?Tobacco Use/Smoking?Are you a: nonsmoker.?Sexual History:?Sexual History?Had sex in the past 12 months (vaginal, oral, or anal)?: No.?Details of Sexual History?Are you sexually active??No ???Drugs/Alcohol:?Drugs?Have you used drugs other than those for medical reasons in the past 12 months??No ?Alcohol Screen (Audit-C)?Did you have a drink containing alcohol in the past year?: No, Points: 0, Interpretation: Negative.?Miscellaneous:?Children: yes, 2. ?Domestic violence: no. ?Exercise: yes, walking. ?Home smoke detector use: yes. ?Living with: spouse. ?Marital status: . ?Natural support system: yes. ?Occupation: Works full-time. ?Sexual abuse: no. ?Sexually active: no, monogamous relationship. ?Verbal abuse: no. * Medications:?TakingReclast 5 MG/100ML Solution as directed Intravenous , Notes to Pharmacist: Done 08/06/23Calcium , Notes to Pharmacist: ChewsVitamin D 25 MCG (1000 UT) Tablet 1 tablet Orally Every other day Melatonin 10 MG Tablet as directed Orally DULoxetine HCl 60 MG Capsule Delayed Release Particles Oral Simvastatin 40 MG Tablet Oral Gabapentin 600 MG Tablet Oral Medication List reviewed and reconciled with the patientTaking Reclast 5 MG/100ML Solution as directed Intravenous , Notes to Pharmacist: Done 08/06/23Taking Calcium , Notes to Pharmacist: ChewsTaking Vitamin D 25 MCG (1000 UT) Tablet 1 tablet Orally Every other day Taking Melatonin 10 MG Tablet as directed Orally Taking DULoxetine HCl 60 MG Capsule Delayed Release Particles Oral Taking Simvastatin 40 MG Tablet Oral Taking Gabapentin 600 MG Tablet Oral Medication List reviewed and reconciled with the patient * Allergies:?N.K.D.A.no[Allerg ies Verified] Objective: * Vitals:?Ht: 62.50 in, Wt: 12 8 lbs, BMI:23.04Index, BP: 128/86 mm Hg, Temp: 97.3 F. * Examination: ???General Examination: ?GENERAL APPEARANCE:?in no acute distress, well developed, well nourished.?BREASTS:?normal, no dimpling, no discharge, no drainage, no masses palpable bilaterally, nontender.?PACS SPECIALIST exam: ?EXTERNAL GENITALIA:?Normal female. No lesions, erythema or discharge.?VAGINA:?atrophic changes.?CERVIX:?No cervical motion tenderness, discharge or lesions.?UTERUS:?normal size, shape and consistency, normal mobility, nontender.?ADNEXA:?no masses or tenderness bilaterally.? Assessment: * Assessment: 1.?Encounter for gynecologic al examination (general) (routine) with abnormal findings - Z01.411?2.?Encounter for screening mammogram for malignant neoplasm of breast - Z12.31?3. Age-related osteoporosis without current pathological fracture - M81.0?4.?Postmenopausal atrophic vaginitis - N95.2? Plan: * Treatment: 2.?Encounter for screening m ammogram for malignant neoplasm of breast?Imaging: MM Digital Mammo Screening Notes: REGULAR MAMMOGRAMS AND SBE'S WERE RECOMMENDED.?? 3.?Age-related osteoporosis without current pathological fracture? Notes: DISCUSSED HER LAST BMD AND OSTEOPOROSIS AND ITS IMPACT ON HER HEALTH. ADEQUATE CALCIUM AND VIT D. WEIGHT BEARING EXERCISES. OSTEO PRECAUTIONS. REPEAT BMD IN 2024. CONTINUE CARE WITH DR BONG MAYER.?? 4.?Postmenopausal atrophic v aginitis? Notes: DISCUSSED FINDINGS, DX AND TX OPTIONS. PAT IS ASYMPTOMATIC.?? * Procedure Codes:? * Follow Up:?1 Year * Images: Billing Information: * Visit Code:? * Procedure Codes:? * Sign off status: Completed true * Appointment Provider:?Rylee Huizar M.D. Date:?08/07/2023 Generated for Pino tavarez/Kali/Swati on:?04/16/2024 08:47 AM EST History and Physical Notes * HPI (History of Present Illness) Category Sub-Category Detail Notes Category Not es New/Follow-up Patient Consult PAT ENTERED MENOPAUSE IN 1999. SHE LOST HER IN 2020. SHE IS NOT SEXUALLY ACTIVE. SHE IS KNOWN TO BE OSTEOPOROTIC AND SEES DR BONG MAYER. SHE HAD BEEN ON PROLIA AND IS NOW ON RECLAST. SHE IS TOLERATING THIS WELL. SHE HAS NO HX OF FRACTURES. HER LAST BMD IN 2022 SHOWED THE LOWEST T-SCORE TO BE -2.5 [facility]. THIS WAS -2.8 IN 2020. HER MAMMOGRAM DONE IN 2021 SHOWED BREASTS ARE NOT DENSE AND WAS NORMAL. HER MAMMOGRAMS USED TO SHOW DENSE BREASTS AND HER BREAST CA RISK IS 12.4%. SHE HAD ANOTHER MAMMOGRAM IN 2022. WE WILL GET THE RESULTS. HER LAST PAP TEST IN 2019 WAS NEGATIVE AND HPV NEGATIVE. SHE HAD A COLONOSCOPY DONE IN 2013 AND AGREED TO PROCEED WITH COLOGUARD TESTING. MODERNA X 3. Examination Category Sub-Category Detail Notes Category Not es General Examination GENERAL APPEARANCE: in no ac praveena distress, well developed, well nourished BREASTS: normal, no dimpling, no discharge, no drainage, no masses palpable bilaterally, nontender PACS SPECIALIST exam CERVIX: No cervical motion tendernes s, discharge or lesions VAGINA: atrophic changes EXTERNAL GENITALIA: Normal female. No le sions, erythema or discharge UTERUS: normal size, shape a nd consistency, normal mobility, nontender ADNEXA: no masses or tendern ess bilaterally
== END 2024-04-16 09:12 | disposition home or self-care (01) ==
PROVIDERS: PCP Family Medicine; Visit Provider Internal Medicine Rheumatology
DX: M79.89 Other specified soft tissue disorders (principal); R74.01 Elevation of levels of liver transaminase levels; D72.819 Decreased white blood cell count, unspecified; M25.519 Pain in unspecified shoulder; M70.61 Trochanteric bursitis, right hip; M70.62 Trochanteric bursitis, left hip
CPT/HCPCS: 99214; G2211

== ENCOUNTER 2024-07-15 08:59 | Outpatient (AMB) | payer MEDICARE, BC, SELFPAY ==
--- NOTE | 2024-07-15 09:17 | MHC.OFFVIS ---
Vital Signs 07/15/24 09:19 Height 5 ft 3 in Weight 130 lb 4.691 oz BMI 23.1 BP 130/78 Blood Pressure Location Lt brachial Position Sitting Pulse 82 Pulse Source Pulse Oximeter Temp 98 F Pulse Oximetry (%) 98 Oxygen Delivery Method Room Air Intake Visit Reasons: Follow Up 3mo Intake Note: Patient presents today for a follow up for trochanteric bursitis. Accompanied by: Self / Same As Patient Allergies No Known Allergies Allergy (Verified 07/15/24 09:20) HPI HPI Follow Up 3mo: Details: She continues to have swelling of right sternoclavicular joint. No change with being on meloxicam. With certain movement she is experiencing pain that radiates from right side of clavicle to shoulder. She has reduced the exercises that she does at the [facility] because of pain. She uses 2 lb weights. 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 She completed physical therapy for right trochanteric bursitis but has not been compliant with doing exercises at home. No new joint swelling. She has right customized wrist brace but it is uncomfortable. [facility] Medical History Myofascial pain Fibromyalgia Surgical History History of carpal tunnel surgery H/O right wrist surgery Family History Father Heart attack Mother Advanced dementia Social History Alcohol intake: current Alcohol intake frequency: holidays/special occasions only Patient Tobacco Use Status: Never used Tobacco Review of Systems Const All systems reviewed & are unremarkable except as noted in HPI and below Physical Exam Vital Signs: Last Vital Signs Temp 98 F 07/15/24 09:19 Pulse 82 07/15/24 09:19 BP 130/78 07/15/24 09:19 Pulse Ox 98 07/15/24 09:19 Oxygen Delivery Method Room Air 07/15/24 09:19 BMI result Body Mass Index 23.1 Const Other: General: Comfortable Skin: No lesions seen MSK: She has right sternoclavicular sternoclavicular joint hypertrophy without effusion. There is no warmth or discoloration. Nontender bilateral shoulders. Normal range of motion of bilateral shoulders. Slight tenderness to palpate right trochanteric bursa. Assessment & Plan Assessment & Plan (1) Osteoarthritis of right glenohumeral joint: Comment: With radiating pain to right clavicle. We discussed x-ray results. Discussed conservative management. Code(s): M19.011 - Primary osteoarthritis, right shoulder Category: Medical Plan: PT referral given to patient to have done locally near her home Discussed importance of having a regular exercise routine Return to clinic in 3 months (2) Osteoarthritis of carpometacarpal (CMC) joint of both thumbs: Comment: Intermittent pain. Clinical diagnosis. Discussed diagnosis and conservative management. Code(s): M18.0 - Bilateral primary osteoarthritis of first carpometacarpal joints Category: Medical Plan: OT referral with custom CMC splint prescription given to patient to have done locally at her home. She went to [facility] in [facility] past after hand surgery with [facility]. She prefers to go there. Return to clinic in 3 months (3) Greater trochanteric bursitis of both hips: Comment: Bilateral. Resolved with PT Code(s): M70.61 - Trochanteric bursitis, right hip; M70.62 - Trochanteric bursitis, left hip Category: Medical Plan: Encouraged her to do home exercise program daily Return to clinic in 3 months Orders: Orders PT Evaluation and Treatment Today M19.011 - Primary osteoarthritis, right shoulder, M79.89 - Other specified soft tissue disorders OT Evaluation and Treatment Today M18.0 - Bilateral primary osteoarthritis of first carpometacarpal joints Coding Level of Care Code Est Pt Level 4 (36516) Complex EM visit Add On G2211 Diagnoses Osteoarthritis of right glenohumeral joint M19.011 Osteoarthritis of carpometacarpal (CMC) joint of both thumbs M18.0 Greater trochanteric bursitis of both hips M70.61; M70.62
[2024-07-15 09:19] VITALS: BP 130/78; PULSE 82; TEMP 36.6; O2SAT 98; BMI 23.1
--- OUTSIDE RECORDS SUMMARY | 2024-07-15 09:29 | XMS_ITS | Clinical Summary ---
Author Organization [facility] Address [address] [place] [address] Phone Care Team Providers Care Through Operator Name Role Phone Ritchie Cuadra MD Primary Care Provider [phone] Social History Tobacco Use Types Packs/Day Years Used Date Smoking Tobacco: Never Assessed Comments Unknown Sex and Gender Information Value Date Recorded Sex Assigned at Female 06/30/2024 2:27 PM EDT Legal Sex Female 10:25 PM EST Gender Identity Female 06/30/2024 2:27 PM EDT Sexual Orientation Choose not to disclose 2024 2:27 PM EDT Plan of Treatment Upcoming Encounters Date Type Department Care Team (Late st Contact Info) Description 10/08/2024 9:[address] [facility] Bone Density [address] [place] [phone] 11/21/2024 9:30 AM EDT [facility]ointment [facility] [address] [phone] Health Maintenance Due Date Last Done Comments DTaP,Tdap,and Td Vaccines (1 - Tdap) 1969 Pneumococcal Vaccine: 50+ Years (1 of 1 - PCV) 2000 Zoster Vaccines (1 of 2) 2000 Colorectal Cancer Screening: Colonoscopy 02/26/2022 Depression Screening 02/26/2022 Falls Risk Assessment 02/26/2022 Hepatitis C Screening 02/26/2022 Medicare Annual Wellness Visit 02/26/2022 Social Influencers of Health Screening 02/26/2022 COVID-19 Vaccine (2023- season) 2023 Influenza Vaccine (Season Ended) 2024 RSV Immunization Adult Patients (1 - 1-dose 75+ series) 2025 Breast [...] patient's age to complete this topic Meningococcal B Vaccine Aged Out No l onger eligible based on patient's age to complete this topic RSV Immunization Patients Under 20 months Aged Out No longer eligible based on patient's age to complete this topic Varicella Vaccines Aged Out No longer eligible based on patient's age to complete this topic Procedures Procedure Name Priority Date/Time Associated Diagnosis Comments [facility] SCREENING DIGITAL Routine 11/16/2023 11:46 AM EDT Encounter for screening mammogram for malignant neoplasm of breast [facility] DEXA AXIAL SKELETON Routine 10/04/2022 7:38 AM EDT Age-related osteoporosis without current pathological fracture from Last 3 Months or Most Recently Relevant to Health Maintenance Results * [facility] SCREENING DIGITAL (11/16/2023 11:46 AM EDT) Anatomical Region Laterality Modality Mammography 11/16/2023 10:1 9 AM EDT Narrative 11/16/2023 11:46 AM EDT [facility] Diagnostic Imaging Department [address] [place] [address] Patient: ??CUAUHTEMOC MAC ?/Age/Sex: 1950 - 73 - F Unit#: ??[id number] ? Location/Status: ??SPDIMAM/REG CLI ? Mnemonic/Ordering Site: ??DIGSC/SPMAM Ordering Physician: ??RYLEE HUIZAR MD [facility] Screening Digital - 11/16/23 - 1032 Report Status:Signed EXAM: [facility] Screening Digital EXAM DATE AND TIME: 11/16/2023 10:33 AM HISTORY: ??Screening. COMPARISON: ??10/03/22, 09/27/21, 09/23/20 TECHNIQUE: Bilateral digital breast tomosynthesis was performed in the CC and MLO projections. Computer aided detection with [employer] 3D 3.1 was employed. TISSUE DENSITY: b. [...] Procedure Note Johnny Reno MD - 01/09/2024 [facility] Diagnostic Imaging Department [address] [place] [address] Patient: BUBBACUAUHTEMOCO.B./Age/Sex: 1950 - 73 - F Unit#: [id number] Location/Status: [facility] CLI Mnemonic/Ordering Site: [facility] Ordering Physician: RYLEE HUIZAR MD [facility] Screening Digital - 11/16/23 - 1032 Report Status:Signed EXAM: [facility] Screening Digital EXAM DATE AND TIME: 11/16/2023 10:33 AM HISTORY: Screening. COMPARISON: 10/03/22, 09/27/21, 09/23/20 TECHNIQUE: Bilateral digital breast tomosynthesis was performed in the CCand MLO projections. Computer aided detection with [employer] 3D 3.1was employed. TISSUE DENSITY: b. There [...] Date/Time: 11/16/23 1145 Sign date/Time: 11/16/23 1146 us Rylee Huizar MD IMG BI PROCEDURES Final Re sult * JOSE DEXA AXIAL SKELETON (10/04/2022 7:38 AM EDT) Anatomical Region Laterality Modality Mammography 10/03/2022 10:1 0 AM EDT Narrative 10/04/2022 7:38 AM EDT [facility] Diagnostic Imaging Department [address] [place] [address] Patient: ??CUAUHTEMOC MAC ?/Age/Sex: 1950 - 72 - F Unit#: ??[id number] ? Location/Status: ??SPDIMAM/REG CLI ? Mnemonic/Ordering Site: ??MAMDEXAAX/SPMAM Ordering Physician: ??RYLEE HUIZAR MD [facility] Dexa Axial Skeleton - 10/03/221 Report Status:Signed HISTORY: ??The patient is a [...] probability of hip fracture of 2.2%. Code 93043 Dictating Physician: ??GUSTAVO SILVERIO MD Electronically Signed by: ??GUSTAVO SILVERIO MD Dic Date/Time: ??10/04/22736 Sign date/Time: ??10/04/22 0738 Procedure Note Gustavo Silverio MD - 05/01/2023 [facility] Diagnostic Imaging Department [address] [place] [address] Patient: LIDIAMIRZACUAUHTEMOC Alejandra D.O.B./Age/Sex: 1950 - 72 - F Unit#: [id number] Location/Status: [facility] Ordering Physician: RYLEE HUIZAR MD Jose Dexa Axial Skeleton - 10/03/22 - 1031 [...] density of the femurs bilaterally is 0.839 gm/xy7rhikv is 83% of that of young normals [...] probability of hip fracture of 2.2%. Code 50115 Dictating Physician: GUSTAVO SILVERIO MD Electronically Signed by: GUSTAVO SILVERIO MD Dic Date/Time: 10/04/22736 Sign date/Time: 10/04/22737 Rylee Huizar MD IM BI PROCEDURES Final Re sult from Last 3 Months or Most Recently Relevant to Health Maintenance Insurance MEDICARE [facility] Care Teams Through Operator Relationship Specialty Start Date End Date Ritchie Cuadra MD [address] [phone] PCP - General Family Medicine 06/30/24
--- OUTSIDE RECORDS SUMMARY | 2024-07-15 09:29 | XMS_ITS | Continuity of Care Document ---
Author Organization [facility] Address [address] [place] [address] Phone [phone] Care Team Providers Care Shake Out Worker Name Role Phone Ritchie Cuadra MD Care Team Information Receive r [phone] Rylee Huizar M.D. Care Team Information Rec eiver [phone] Problems Active Problems Provider Date Dyslipidemia Nataly Esteban M.D. Ons et: 06/07/2022 Osteoporosis Nataly Esteban M.D. Ons et: 06/07/2022 Fibromyalgia Nataly Esteban M.D. Ons et: 06/07/2022 Benign paroxysmal positional vertigo Nataly Wood M.D. Onset: 06/07/2022 Anxiety Nataly Esteban M.D. 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 Vital Signs Date Vital Result Comment 06/30/2024 8:45am BP Systolic 128 mmHg BP Diastolic 80 mmHg Results Test Acquired Date Facility Test Result [...] IU/L 0-40 Alt (SGPT) 20 IU/L 0-32 Vitamin D, 25-Hydroxy 07/02/2023 [facility] Vitamin D, 25-Hydroxy 33.9 ng/mL [...] Immature Grans (Abs) 0.0 x10E3/uL 0.0-0.1 [facility]BC [facility] Hematology Comments: TNP Comprehensive Metabolic Panl 06/09/2022 [facility] Glucose 79 mg/dL (70-99) BUN [...] 3M2 3 Complete Abc With Diff 06/09/2022 [facility] WBC 4.9 K/MM3 (4.0-11. 0) [...] ) Lymph # 1.2 K/MM3 (0.8-3.1 ) Smyth# 0.4 K/MM3 (0.4-0.9 ) Eo # 0.1 K/MM3 (0.0-0.4 ) Baso # 0.0 K/MM3 (0.0-0.1 ) Abs. Imm Gran 0.0 K/MM3 Neut 65.6 % (44-76) Lymph 23.7 % (15-43) Monocyte 8.9 % (4.5-10. 5) Eo 1.0 % (0-6) Baso 0.6 % (0-2) Imm Gran 0.2 % 25Oh Vitamin D 06/09/2022 [facility] 25Oh Vitamin D 32.6 NG/ML (20-50) N-Telopeptide Cross Links, Urine 06/09/2022 [facility] Cross Linked N-Telopeptides 222 4 Creat, Urine 73.2 5 N-Telopeptide/C r eat Ratio 34 6 NTX Interpretaion Comment 7 1 Vitamin D deficiency has been defined by the [employer] of Medicine and an Endocrine Society practice guideline as a level of serum 25-OH vitamin D less than 20 ng/mL (1,2). The Endocrine Society went on to further define vitamin D insufficiency as a level between 21 and 29 ng/mL (2). 1. IOM ([place] of Medicine). 2010. Dietary reference intakes for calcium and D. [place]: The National Academies Press. 2. Tim COPELAND, Travon PUENTES, Nael LERNER, et al. Evaluation, treatment, and [...] measured NTx value is <or=38 nM BCE/mM CORPORATE TREASURY ANALYST, or NTx has decreased >or=30% from [...] Estab. Unit: nmol BCE Test performed at [facility], [address] [place] [address] 5 Reference range: Not Estab. Unit: mg/dL Test performed by [facility], [address] [facility] [place] [address] 6 Reference range: 0 t o 89 [...] value is <or EQ 38 nM BCE/mM CORPORATE TREASURY ANALYST, or NTx has decreased >or EQ 30% from baseline.[1] 3. Patients with Paget's Disease of Bone: The probability that treatment is effective after one month is increased when the measured NTx value is within the reference range, or NTx has decreased >or EQ 30% from baseline.[2] 1. Nilson CH, Owen NH, Luis Eduardo GS, et al. Am J Med, 102:29-37,1997. (1):M757, 1996. 2. Bone H, Ezekiel J, et al. J Bone Min Res.11(1):M757,1995 [place] [address] Medical Devices Description No Information Available Encounters Type Date Location Provider Dx Diagnosis Office Visit 06/30/2024 8:00a Main Office Nataly Esteban M.D. M81.0 Age-related osteoporosis w/o current pathological fracture Assessments Date Code Description Provider 06/30/2024 M81.0 Age-related oste oporosis without current pathological fracture Nataly Esteban M.D. Plan of Treatment Future Appointment(s):* 11/19/2024 8:45 am - Nataly Esteban M.D. at Main Office 06/07/2022 - Nataly Esteban M.D.* M81.0 Age-related osteoporosis without current pathological fracture* New Xrays:* Dexa Bone Density Study Axial Skeleton, Ordered: 06/07/22 Functional Status Description No Information Available Mental Status Description No Information Available Referrals Description No Information Available
--- OUTSIDE RECORDS SUMMARY | 2024-07-15 09:29 | XMS_ITS ---
Author Organization Unknown Address [address] [place] [id number] Phone Care Team Providers Care Registered Private Duty Nurse Name Role Phone DOV NORWOOD Registered Nurse Unavailable TYE Souza Attending Unavailable PCP NOT SELECTED Primary Unavailable UNLISTED PROVIDER - REQUESTED Xhandoff Un available Results XR C-ARM WRIST 3V 4V RT* - C ompleted: LOINC: [facility] [place], [place] [address] [facility] PACS COUNSELING CENTER MANAGER REPORT Patient Name: RAMON MAC MRN: Sex: : Age: [id number] F 1950 73 Account: Accession: Admit: StayType: [id number] 09/07/2023 E Ordered: Order ID: Submitted: Ordering Provider: 09/07/2023 14:36 [id number] ROVERTO OSPINA Completed: Technologist: Resulted: 09/07/2023 14:44 [...] 2V RT* - Completed: 09/07/2023 15:30 LOINC: [facility] [place], [place] [id number] [place] [address] P[facility] COUNSEL[facility] CENTER MANAGER REPORT Patient Name: RAMON MAC MRN: Sex: : Age: [id number] F 1950 73 Account: Accession: Admit: StayType: [id number] 09/07/2023 E Ordered: Order ID: Submitted: Ordering Provider: 09/07/2023 15:21 [id number] ROVERTO MEJIA Completed: Technologist: Resulted: 09/07/2023 15:25 [...] NAVICULAR RT* - Completed: 09/07/2023 13:40 LOINC: [facility] [place], [place] [id number] [place] [address] PACS COUNSEL[facility] CENTER MANAGER REPORT Patient Name: RAMON MAC MRN: Sex: : Age: [id number] F 1950 73 Account: Accession: Admit: StayType: [id number] 09/07/2023 E Ordered: Order ID: Submitted: Ordering Provider: 09/07/2023 13:22 [id number] ROVERTO PANDA Completed: Technologist: Resulted: 09/07/2023 13:29 [...] Female Vital Signs Vital Sign Value Unit Holt Value Holt Unit Date/Time Recent/Initial? Code Code System Body Mass Index 22.50 kg/m2 09/07/2023 13:17 Initial 81370 -5 LOINC Systolic Blood Pressure 152 mm[Hg] 09/07/2023 13:17 Initial 8480- 6 LOINC Diastolic Blood Pressure 86 mm[Hg] 09/07/2023 13:17 Initial 8462- 4 LOINC Body Surface Area 1.60 m2 09/07/2023 13:17 Initial 3140- 1 LOINC Height 160.020 0 cm 63.00 in 09/07/2023 13:17 Initial 8302- 2 LOINC O2 Saturation 93 % 2023 13:17 Initial 91728 -5 LOINC Pulse 68.0 /min 09/07/2023 13:17 Initial 8867- 4 LOINC Respiration 15 /min 09/07/19 13:17 Initial 9279- 1 LOINC Temperature 36.4 Bhavya 97.5 F 09/07/19 13:17 Initial 8310- 5 LOINC Weight 57.61 kg 127.00 lbs 09/07/2023 13:17 Initial 58202 -7 LOINC Medications Medication Start Date End Date Route Frequency Dose Code Code System Medication Instructions Home Meds Morphine Sulfate 15MG Oral Tablet 09/07/2023 Unknown ORAL NEEDED FOUR TIMES A DAY 0.5 TABLET 996752 RxNorm TAKE 0.5 TABLET ORAL NEEDED FOUR [...] Superficial W ounds, Scalp/Neck/Axillae/Genitalia/Trunk/Extremities; 2.5 cm/< completed 90796 CPT Closed Treatment, Distal Rad ial FX /Epiphyseal Separation; w/Manipulation completed 39404 CPT Problems Problem Start Date Resolved Date Status Code Code System HYPERCHOLESTEROLEMIA 09/07/2023 resolved 59571281 SNOMED-CT FIBROMYALGIA 09/07/2023 resolved 712531425 SNOMED -CT Allergies and Adverse Reactions Allergy Substance Reaction Severity Start Date Concern Status Co de Code System No Known Allergies Active 463671469 SNO MED-CT Plan of Treatment No Data Found Encounters Encounter Diagnosis Start Date Code Code Sys tem Other intraarticular fractur e of lower end of right radius, initial encounter for closed fracture 09/07/2023 SNOMED-CT Personal Care Team Section Performer Name Performer Role Active Date Inactive Da te
--- OUTSIDE RECORDS SUMMARY | 2024-07-15 09:29 | XMS_ITS ---
Author Organization [facility] Address [address] [place] [address] Care Team Providers Care Edging Machine Catcher Name Role Phone DR JAKE GABRIEL Primary Care Provider Rylee Mathias Unavailable [phone] REASON FOR VISIT COLOGARD REQUEST Encounters Encounter Location Date Provider Diagnosis [facility] [employer] [address] [place] [address] [address] [place] [address] 08/07/2023 Rylee Huizar Plan Of Treatment Next Appt Details Provider Name:Rylee dotson, 08/13/2024 08:20:00 AM, [address], [address], [place], [address], Progress Notes * RAMON MACDOB:1950 (73 yo F)Acc No.[id number]:08/07/2023 Patient:?LIDIAMIRZA RAMON :1950???Age:73 Y???Sex:Female Address:[address] [place] [address] , [place], [address] * true * Date:? Generated for Printi ng/Fanatig/eTransmitting on:?07/15/2024 09:29 AM EDT
--- OUTSIDE RECORDS SUMMARY | 2024-07-15 09:30 | XMS_ITS ---
Author Organization [facility] Address [address] [facility] [address] [place] [address] Care Team Providers Care Designer Name Role Phone DR JAKE GABRIEL Primary Care Provider Rylee Mathias Unavailable [phone] REASON FOR VISIT FYI - COLOGARD Encounters Encounter Location Date Provider Diagnosis [facility] [address] [place] [address] [address] [place] [address] 08/24/2023 Rylee Huizar Plan Of Treatment Next Appt Details Provider Name:Rylee dotson, 08/13/2024 08:20:00 AM, [address] [facility], [facility] [address], [place], [address], Progress Notes * RAMON MACDOB:1950 (73 yo F)Acc No.[id number]:08/24/2023 Patient:?BUBBA RAMON :1950???Age:73 Y???Sex:Female Address:[address] [place] [address] , [place], [address] * true * Date:? Generated for Printi ng/Faxing/eTransmitting on:?07/15/2024 09:30 AM EDT
--- OUTSIDE RECORDS SUMMARY | 2024-07-15 09:30 | XMS_ITS | Data Portability ---
Author Organization [facility], Main Office Address [address] [facility] [address] [place] [id number] Care Team Providers Care Waist Fitter Name Role Phone DOMENICO BERRY Drying Oven Attendant [phone] SANDER DAVIS Gas Engine Repairer NATALY OLIVARES Crib Clerk JAKE GABRIEL Primary Care Provider [phone] Assessment Encounter Date Assessment Date Assessment LastModified by Organization Details LastModified Time 08/28/2023 08/28/2023 Upon examination , I did not observe any supraclavicular or cervical adenopathy. Given the absence of a history suggestive of cat scratch disease and the low suspicion for Bartonella Henselae infection, we will focus on other potential causes. I will order blood work to evaluate inflammatory markers and an arthritis panel. Considering her outdoor activities, a Lyme disease test will also be conducted to rule out this possibility. An X-ray of the clavicle has been ordered due to the palpable hard prominence in this area. If the X-ray results are normal, further imaging with either an ultrasound or MRI may be considered to investigate potential soft tissue abnormalities. paolo Not available 08/28/2023 20:15:40 Plan of Treatment Reminders Order Date Submit Date Provider Last Modified By Organization Details Last Modified Time Details Appointments [id number] 0 2024 02:30P M Jake Gabriel MD Not available Not available Not available Lab rapi d infl uenz a viru s A + B and SARS CoV + SARS CoV 2 Ag pane l, [place], uppe r resp irat ory spec imen 2024 025 elena In-Office Order, Internal Use Only DO Not Attach Compendium DO Not Attach Compendium, Do Not Delete/merge, [id number] 06/02/2024 14:23:00 C reac tive prot ein, QN, seru m or plas ma 2023 [place] [facility] (Centralized Electronic Ordering - All Locations), Patient Can Go To The Location Of Their Choice, 08/30/2023 22:06:38 eryt hroc yte sedi ment atio n rate by west ergr en meth od 2023 [place] [facility] (Centralized Electronic Ordering - All Locations), Patient Can Go To The Location Of Their Choice, 08/30/2023 22:06:37 MARGIE (ant inuc lear anti bodi es) scre en, ifa, seru m 2023 [place] [facility] (Centralized Electronic Ordering - All Locations), Patient Can Go To The Location Of Their Choice, 08/30/2023 22:06:38 rf (rhe umat oid fact or), seru m 2023 024 [place] [facility] (Centralized Electronic Ordering - All Locations), Patient Can Go To The Location Of Their Choice, 08/30/2023 22:06:35 ccp (cyc lic citr ulli glenis d pept madeline) iga+ igg, seru m 2023 [place] [facility] (Centralized Electronic Ordering - All Locations), Patient Can Go To The Location Of Their Choice, 08/30/2023 22:06:37 ross chatman sarah IgG + IgM + tota l vivianae l, [place], seru m 2023 024 [place] [facility] (Centralized Electronic Ordering - All Locations), Patient Can Go To The Location Of Their Choice, 08/30/2023 22:06:36 lipi abhishek mtz l, seru m 2023 [place] [facility], [address] [facility], [address], [place], [address], 08/30/2023 06:10:19 CBC w/ auto diff 2023 024 [place] [facility], [address], [address], [place], [address], 08/30/2023 06:10:19 CMP, seru m or plas ma 2023 024 [place] [facility] (Centralized Electronic Ordering - All Locations), Patient Can Go To The Location Of Their Choice, [id number] 08/30/2023 06:10:18 TSH, ultr a-se nsit sarahy, seru m 2023 024 [place] [facility] (Centralized Electronic Ordering - All Locations), Patient Can Go To The Location Of Their Choice, [id number] 08/30/2023 06:10:20 Referral orth oped ic surg camelia refe rral 2023 024 [facility] ([facility]), [address] [place], [address], 10/08/2023 09:20:40 hand surg camelia refe rral 2023 024 [email or web address] [facility], [address], [address], [place], [address], 10/19/2023 13:30:[address] refe rral - Need s colo n canc er scre enin g 2023 024 [email or web address] [facility], [address] [facility], [place], [address], 08/24/2023 15:40:16 Procedures ceru men sarahy kassidy (PRO C) 2024 025 [place] In-Office Order, Internal Use Only DO Not Attach Compendium DO Not Attach Compendium, Do Not Delete/merge, [id number] 05/21/2024 15:11:53 colo nosc opy scre enin g (PRO C) 2023 024 In-Office Order, Internal Use Only DO Not Attach Compendium DO Not Attach Compendium, Do Not Delete/merge, [id number] 08/24/2023 13:55:12 Surgeries None damion rded . Imaging XR, ches t, 2 view - rule out pneu josé a 2024 025 [facility], [address] [place] [address], [id number], 06/02/2024 15:19:17 XR, clav icle - RIGH T SIDE 2023 024 paolo [facility], [address] [place] [address], [address], 08/28/2023 15:02:31 Medication Orders azit hrom ycin 250 mg tabl et 2024 025 [place] [id number], [address] [place], [address], 06/02/2024 14:34:07 Patient TargetsNo targets recorded. Patient Instructions Encounter Date Encounter Id Patient Instructions Last Modified By Organization Details Last Modified Time 08/24/2023 [id number] advance care planning: care instructions paolo Not available 08/24/2023 12:20:36 preventing falls: care instructions paolo Not available 08/24/2023 12:20:36 medicare preventive services guide (female 74yrs and under) paolo Not available 08/24/2023 12:20:36 learning about colon cancer ckotonny Not available 08/24/2023 12:20:36 09/10/2023 [id number] Patient will follow up and keep appointment as scheduled. pmadden Not available 09/10/2023 13:18:18 06/02/2024 [id number] learning about fever awychowski Not available 06/02/2024 14:34:04 Reason for Referral Script Artist Referral for Screening for malignant neoplasm of colon Needs colon cancer screening Referring Physician: Jake Gabriel, Family Medicine, Encounter Date: 08/24/2023 Hand Surgeon Referral for Pa in of bilateral hands Referring Physician: Jake Gabriel, Family Medicine, Encounter Date: 08/24/2023 Orthopedic Surgeon Referral for Closed fracture of distal end of right radius Referring Physician: Jan Mckeon, Internal Medicine, Encounter Date: 09/10/2023 Results Created Date Observation Date Name Description Value Unit Range Abnormal Flag Note LastModifiedBy Organization Detail LastModifiedTime 08/29/19 24 08/29/2023 CMP14 (REFL EX HGB A1C) glucose 87 mg/dL 70-99 Not Available [facility] ([facility]) [address] [place], [address], 08/30/2023 06:10:18 08/29/19 24 08/29/2023 CMP14 (REFL EX HGB A1C) BUN 9 mg/dL 8-27 Not Available [facility] ([facility]) [address] [place], [address], 08/30/2023 06:10:18 08/29/19 24 08/29/2023 CMP14 (REFL EX HGB A1C) creatinine 0.71 mg/dL 0.57-1 .00 Not Available [facility] ([facility]) [address] [place], [address], 08/30/2023 06:10:18 08/29/19 24 08/29/2023 CMP14 (REFL EX HGB A1C) eGFR 90 mL/mi n/1.7 3 >59 Not Available [facility] ([facility]) [address] [place], [address], 08/30/2023 06:10:18 08/29/19 24 08/29/2023 CMP14 (REFL EX HGB A1C) BUN/creatini ne ratio 13 12-28 Not Available [facility] ([facility]) [address] [place], [address], 08/30/2023 06:10:18 08/29/19 24 08/29/2023 CMP14 (REFL EX HGB A1C) sodium 139 mmol/ L 134-14 4 Not Available [facility] ([facility]) [address] [place], [address], 08/30/2023 06:10:18 08/29/19 24 08/29/2023 CMP14 (REFL EX HGB A1C) potassium 4.5 mmol/ L 3.5-5. 2 Not Available [facility] ([facility]) [address] [place], [address], 08/30/2023 06:10:18 08/29/19 24 08/29/2023 CMP14 (REFL EX HGB A1C) chloride 101 mmol/ L 96-106 Not Available [facility] ([facility]) [address] [place], [address], 08/30/2023 06:10:18 08/29/19 24 08/29/2023 CMP14 (REFL EX HGB A1C) carbon dioxide, total 28 mmol/ L 20-29 Not Available [facility] ([facility]) [address] [place], [address], 08/30/2023 06:10:18 08/29/19 24 08/29/2023 CMP14 (REFL EX HGB A1C) calcium 9.3 mg/dL 8.7-10 .3 Not Available [facility] ([facility]) [address] [place], [address], 08/30/2023 06:10:18 08/29/19 24 08/29/2023 CMP14 (REFL EX HGB A1C) protein, total 6.9 g/dL 6.0-8. 5 Not Available [facility] ([facility]) [address] [place], [address], 08/30/2023 06:10:18 08/29/19 24 08/29/2023 CMP14 (REFL EX HGB A1C) albumin 4.2 g/dL 3.8-4. 8 Not Available [facility] ([facility]) [address] [place], [address], 08/30/2023 06:10:18 08/29/19 24 08/29/2023 CMP14 (REFL EX HGB A1C) globulin, total 2.7 g/dL 1.5-4. 5 Not Available [facility] ([facility]) [address] [place], [address], 08/30/2023 06:10:18 08/29/19 24 08/29/2023 CMP14 (REFL EX HGB A1C) A/G ratio 1.6 1.2-2. 2 Not Available [facility] ([facility]) [address] [place], [address], 08/30/2023 06:10:18 08/29/19 24 08/29/2023 CMP14 (REFL EX HGB A1C) bilirubin, total 0.4 mg/dL 0.0-1. 2 Not Available [facility] ([facility]) [address] [place], [address], 08/30/2023 06:10:18 08/29/19 24 08/29/2023 CMP14 (REFL EX HGB A1C) alkaline phosphatase 60 IU/L 44-121 Not Available [facility] ([facility]) [address] [place], [address], 08/30/2023 06:10:18 08/29/19 24 08/29/2023 CMP14 (REFL EX HGB A1C) AST (SGOT) 26 IU/L 0-40 Not Available [facility] ([facility]) [address] [place], [address], 08/30/2023 06:10:18 08/29/19 24 08/29/2023 CMP14 (REFL EX HGB A1C) ALT (SGPT) 14 IU/L 0-32 Not Available [facility] ([facility]) [address] [place], [address], 08/30/2023 06:10:18 08/29/19 24 08/29/2023 CBC WITH DIFFE RENTI AL/PL ATELE T WBC 3.4 x10e3 /uL 3.4-10 .8 Not Available [facility] ([facility]) [address] [facility], [place], [address], 08/30/2023 06:10:19 08/29/19 24 08/29/2023 CBC WITH DIFFE RENTI AL/PL ATELE T RBC 4.49 x10e6 /uL 3.77-5 .28 Not Available [facility] ([facility]) [address] [facility], [place], [address], 08/30/2023 06:10:19 08/29/19 24 08/29/2023 CBC WITH DIFFE RENTI AL/PL ATELE T hemoglobin 13.6 g/dL 11.1-1 5.9 Not Available [facility] ([facility]) [address] [facility], [place], [address], 08/30/2023 06:10:19 08/29/1908/29/2023 CBC WITH DIFFE RENTI AL/PL ATELE T hematocrit 42.3 % 34.0-4 6.6 Not Available [facility] ([facility]) [address] [place], [address], 08/30/2023 06:10:19 08/29/1908/29/2023 CBC WITH DIFFE RENTI AL/PL ATELE T MCV 94 fL 79-97 Not Available [facility] ([facility]) [address] [place], [address], 08/30/2023 06:10:19 08/29/19 24 08/29/2023 CBC WITH DIFFE RENTI AL/PL ATELE T MCH 30.3 pg 26.6-3 3.0 Not Available [facility] ([facility]) [address] [place], [address], 08/30/2023 06:10:19 08/29/19 24 08/29/2023 CBC WITH DIFFE RENTI AL/PL ATELE T MCHC 32.2 g/dL 31.5-3 5.7 Not Available [facility] ([facility]) [address] [facility], [place], [address], 08/30/2023 06:10:19 08/29/19 24 08/29/2023 CBC WITH DIFFE RENTI AL/PL ATELE T RDW 12.3 % 11.7-1 5.4 Not Available [facility] ([facility]) [address] [facility], [place], [address], 08/30/2023 06:10:19 08/29/19 24 08/29/2023 CBC WITH DIFFE RENTI AL/PL ATELE T platelets 218 x10e3 /uL 150-45 0 Not Available [facility] ([facility]) [address] [facility], [place], [address], 08/30/2023 06:10:19 08/29/19 24 08/29/2023 CBC WITH DIFFE RENTI AL/PL ATELE T neutrophils 50 % not estab. Not Available [facility] ([facility]) [address] [facility], [place], [address], 08/30/2023 06:10:19 08/29/19 24 08/29/2023 CBC WITH DIFFE RENTI AL/PL ATELE T lymphs 32 % not estab. Not Available [facility] ([facility]) [address] [facility], [place], [address], 08/30/2023 06:10:19 08/29/19 24 08/29/2023 CBC WITH DIFFE RENTI AL/PL ATELE T monocytes 14 % not estab. Not Available [facility] ([facility]) [address] [place], [address], 08/30/2023 06:10:19 08/29/19 24 08/29/2023 CBC WITH DIFFE RENTI AL/PL ATELE T eos 3 % not estab. Not Available [facility] ([facility]) [address] [place], [address], 08/30/2023 06:10:19 08/29/19 24 08/29/2023 CBC WITH DIFFE RENTI AL/PL ATELE T basos 1 % not estab. Not Available [facility] ([facility]) [address] [facility], [place], [address], 08/30/2023 06:10:19 08/29/1908/29/2023 CBC WITH DIFFE RENTI AL/PL ATELE T immature cells BIOLOGICAL INSPECTOR Not Available [facility] ([facility]) [address] [facility], [place], [address], 08/30/2023 06:10:19 08/29/19 24 08/29/2023 CBC WITH DIFFE RENTI AL/PL ATELE T neutrophils (absolute) 1.7 x10e3 /uL 1.4-7. 0 Not Available [facility] ([facility]) [address] [place], [address], 08/30/2023 06:10:19 08/29/19 24 08/29/2023 CBC WITH DIFFE RENTI AL/PL ATELE T lymphs (absolute) 1.1 x10e3 /uL 0.7-3. 1 Not Available [facility] ([facility]) [address] [place], [address], 08/30/2023 06:10:19 08/29/19 24 08/29/2023 CBC WITH DIFFE RENTI AL/PL ATELE T monocytes(ab solute) 0.5 x10e3 /uL 0.1-0. 9 Not Available [facility] ([facility]) [address] [place], [address], 08/30/2023 06:10:19 08/29/19 24 08/29/2023 CBC WITH DIFFE RENTI AL/PL ATELE T eos (absolute) 0.1 x10e3 /uL 0.0-0. 4 Not Available [facility] ([facility]) [address] [facility], [place], [address], 08/30/2023 06:10:19 08/29/19 24 08/29/2023 CBC WITH DIFFE RENTI AL/PL ATELE T baso (absolute) 0.0 x10e3 /uL 0.0-0. 2 Not Available [facility] ([facility]) [address] [facility], [place], [address], 08/30/2023 06:10:19 08/29/1908/29/2023 CBC WITH DIFFE RENTI AL/PL ATELE T immature granulocytes 0 % not estab. Not Available [facility] ([facility]) [address] [facility], [place], [address], 08/30/2023 06:10:19 08/29/19 24 08/29/2023 CBC WITH DIFFE RENTI AL/PL ATELE T immature grans (abs) 0.0 x10e3 /uL 0.0-0. 1 Not Available [facility] ([facility]) [address] [facility], [place], [address], 08/30/2023 06:10:19 08/29/1908/29/2023 CBC WITH DIFFE RENTI AL/PL ATELE T NRBC BIOLOGICAL INSPECTOR Not Available [facility] ([facility]) [address] [facility], [place], [address], 08/30/2023 06:10:19 08/29/1908/29/2023 CBC WITH DIFFE RENTI AL/PL ATELE T hematology comments: BIOLOGICAL INSPECTOR Not Available [facility] ([facility]) [address] [facility], [place], [address], 08/30/2023 06:10:19 08/29/1908/29/2023 LIPID PANEL cholesterol, total 215 mg/dL 100-19 9 above high normal Not Available [facility] ([facility]) [address] [facility] [place], [address], 08/30/2023 06:10:19 08/29/19 24 08/29/2023 LIPID PANEL triglyceride s 73 mg/dL 0-149 Not Available [facility] ([facility]) [address] [facility] [place], [address], 08/30/2023 06:10:19 08/29/19 24 08/29/2023 LIPID PANEL HDL cholesterol 84 mg/dL >39 Not Available [facility] ([facility]) [address] [facility] [place], [address], 08/30/2023 06:10:19 08/29/19 24 08/29/2023 LIPID PANEL VLDL cholesterol ezequiel 13 mg/dL 5-40 Not Available [facility] ([facility]) [address] [place], [address], 08/30/2023 06:10:19 08/29/19 24 08/29/2023 LIPID PANEL LDL chol calc ([facility]) 118 mg/dL 0-99 above high normal Not Available [facility] ([facility]) [address] [facility] [place], [address], 08/30/2023 06:10:19 08/29/19 24 08/29/2023 LIPID PANEL comment: BIOLOGICAL INSPECTOR Not Available [facility] ([facility]) [address] [facility] [place], [address], 08/30/2023 06:10:19 08/29/19 24 08/30/2023 TSH RFX ON ABNOR MAL TO FREE T4 TSH 2.500 uIU/m L 0.450- 4.500 Not Available [facility] ([facility]) [address] [place], [address], 08/30/2023 06:10:20 08/29/19 24 08/30/2023 RHEUM ATOID FACTO R (RF) rheumatoid factor (rf) <10.0 IU/mL <14.0 Not Available [facility] ([facility]) [address] [facility], [place], [address], 08/30/2023 22:06:35 08/29/19 24 08/30/2023 LYME DISEA SE SEROL OGY W/REF JOURDAN lyme total antibody herb Negati ve negati ve Lyme antib odies not detec timothy. Refle x testi ng is not indic ated. No labor atory evide nce of infec tion with B. burgd orfer i (Lyme disea se). Negat sarahy resul ts may occur in patie nts recen tly infec timothy (less than or equal to 14 days) with B. burgd orfer i. If recen t infec tion is suspe cted, repea t testi ng on a new sampl e colle cted in 7 to 14 days is recom michelle d. Not Available [facility] ([facility]) [address] [facility], [place], [address], 08/30/2023 22:06:36 08/29/19 24 08/30/2023 CCP ANTIB ODIES IGG/I GA ccp antibodies IgG/IgA 7 units 0-19 Negat sarahy <20 Weak posit sarahy 20 - 39 Moder ate posit sarahy 40 - 59 Stron g posit sarahy >59 Value s above 250 units are repor timothy at the reque st of the clien t. Such value s are beyon d the linea rity range of the assay . Not Available [facility] ([facility]) [address] [facility], [place], [address], 08/30/2023 22:06:37 08/29/19 24 08/29/2023 SEDIM ENTAT ION RATE- WESTE RGREN sedimentatio n rate-westerg marla 7 mm/HR 0-40 Not Available [facility] ([facility]) [address] [facility], [place], [address], 08/30/2023 22:06:37 08/29/19 24 08/30/2023 C-FLOYD CTIVE PROTE IN, QUANT C-reactive protein, quant <1 mg/L 0-10 Not Available [facility] ([facility]) [address] [facility], [place], [address], 08/30/2023 22:06:38 08/29/19 24 08/30/2023 MARGIE BY IFA RFX TITER /KAIT JEAN PIERRE MARGIE by ifa rfx titer/patter n Negati ve Negat sarahy <1:80 Borde rline 1:80 Posit sarahy >1:80 ICAP nomen kellytnichol re: AC-0 For more infor star bond about Hep-2 cell patte rns use ANApa ttern s.org , the offic ial courtneyi te for the Inter natio nal Conse nsus on Antin uclea r Antib ericka (MARGIE) Patte rns (ICAP ). Not Available [facility] ([facility]) [address] [facility], [place], [address], 08/30/2023 22:06:38 05/21/19 25 05/21/2024 jeffum sanjiv palmer al (PROC ) done by Naa Not Available In-Office Order Internal Use Only DO Not Attach Compendium DO Not Attach Compendium, Do Not Delete/merge, [id number] 05/21/2024 15:02:17 06/03/19 25 06/02/2024 rapid influ kayla virus A + B and SARS CoV + SARS CoV 2 Ag panel , [place], upper respi rator y speci men Unknown Analyte negati ve Not Available In-Office Order Internal Use Only DO Not Attach Compendium DO Not Attach Compendium, Do Not Delete/merge, [id number] 06/02/2024 14:08:37 06/03/19 25 06/02/2024 rapid influ kayla virus A + B and SARS CoV + SARS CoV 2 Ag panel , [place], upper respi rator y speci men Unknown Analyte negati ve Not Available In-Office Order Internal Use Only DO Not Attach Compendium DO Not Attach Compendium, Do Not Delete/merge, [id number] 06/02/2024 14:08:37 06/03/19 25 06/02/2024 rapid influ kayla virus A + B and SARS CoV + SARS CoV 2 Ag panel , [place], upper respi rator y speci men Unknown Analyte negati ve Not Available In-Office Order Internal Use Only DO Not Attach Compendium DO Not Attach Compendium, Do Not Delete/merge, [id number] 06/02/2024 14:08:37 08/28/19 24 08/28/2023 XR, clavi hellen Examin ation: Right clavic le perfor med on 08/28/19. Histor y: Reason : pain Findin gs: Two views of the right clavic le are submit timothy. No fractu res are demons trated . The AC joint is preser alysa. The visual ized ribs and lung parenc hyma are unrema rkable . Impres marta: There is no osseou s abnorm ality. WSN: [id number] Orderi ng Physic naty: Vincent Gabriel Dictat ed By: Wendy Hidalgo MD Dictat ed Date/T juana: 2:58 pm Review ed By: Wendy Hidalgo MD Signed By: Wendy Hidalgo MD Signed Date/T juana: 2:58 pm Transc ribed By: KAVON Transc ribed Date/T juana: 2:57 pm Patien t Class: Outpat ient [facility] (Outpt Imaging) [address] [place], [address], 08/29/2023 10:47:20 08/28/19 24 08/28/2023 XR, clavi hellen No observ ation record ed. [email or web address] [facility] [address] [place], [address], 08/29/2023 10:40:49 09/11/19 24 09/07/2023 XR, wrist , 3 or more view No observ ation record ed. paolo Not Available 2023 16:06:13 09/11/19 24 09/07/2023 XR, wrist , 3 or more view No observ ation record ed. [email or web address] Not Available 2023 16:06:14 09/11/19 24 09/07/2023 XR, wrist , 2 view No observ ation record ed. [email or web address] Not Available 2023 16:06:14 10/03/19 24 10/03/2023 US, head + neck, soft tissu e US Soft Tissue Head/N juan david Reason : M89.8X 8 OTHER SPECIF IED DISORD ERS OF BONE; asymme tric thicke isabel of tissue at the right sterno clavic ular joint. Negati ve radiog raphs. Clinic al Questi on(s): Other: COMPAR JACLYN: Right clavic le radiog raphs of 08/28/19. FINDIN GS: Clinic al examin ation, there is nonten julia modera te swelli ng of soft tissue at the right sterno clavic ular joint withou t erythe ma or warmth . Scanni ng at this site demons trates an approx imatel y 2.1 x 2.2 x 0.8 cm area of relati vely homoge neous mildly hypoec hoic tissue at and anteri or to the right sterno clavic ular joint withou t clearl y define d mass margin s and withou t any focus of acoust ic shadow ing to sugges t calcif icatio n. Compar jaclyn imagin g on the left sterno clavic ular joint demons trates less promin ent tissue of simila r echoge nicity . No fluid collec tion is presen t on either side. Subcut aneous soft tissue s and skin are otherw ise unrema rkable . IMPRES MARTA: Asymme tric thicke isabel of hypoec hoic soft tissue along the right sterno clavic ular joint compar ed with the left, withou t a clearl y deline ated mass. This could repres ent inflam matory change or fibros is. If clinic ally indica timothy, a MRI examin ation may be helpfu l in furthe r evalua tion. WSN: [id number] Orderi ng Physic naty: Vincent Gabriel ai Dictat ed By: Prabha steele MD, Tiera ibarra Dictat ed Date/T juana: 3:17 pm Review ed By: Prabha steele MD, Tiera ibarra Signed By: Tiera Tolliver MD Signed Date/T juana: 3:17 pm Transc ribed By: KAVON Transc ribed Date/T juana: 3:13 pm Patien t Class: Outpat ient [facility] (Outpt Imaging) [address] [place], [address], 10/05/2023 16:26:46 10/03/19 24 10/03/2023 US, head + neck, soft tissu e No observ ation record ed. [email or web address] Not Available 10/03 09:52:38 10/18/19 24 10/17/2023 MRI, clavi hellen, w/o contr ast No observ ation record ed. [facility] ([facility]) [address] [place], [address], 10/22/2023 07:54:22 11/16/19 24 11/16/2023 MAMMO , scree isabel, digit al, bilat eral No observ ation record ed. [email or web address] [facility] Diagnosit Imaging Dept [address] [place] [address], [place], [address], 11/16/2023 12:24:39 04/09/1904/07/2024 ct guide d needl e biops y (PROC ) No observ ation record ed. [email or web address] (Medical Records) [address] [place], [address], 04/11/2024 13:42:50 04/17/1902/29/2024 XR, shoul julia No observ ation record ed. [address] (Medical Records) [address] [place] [address], [address], 04/17/2024 16:25:43 04/17/19 25 02/29/2024 XR, shoul julia No observ ation record ed. [email or web address] [facility] (Medical Records) [address] [facility], [place], [address], 04/17/2024 16:26:08 06/03/19 25 06/02/2024 XR, chest , 2 view Chest 2 Views Fronta l and Lat Reason : r o pna COMPAR JACLYN: Two priors with the most recent dated 018. FINDIN GS: LINES AND TUBES: None. LUNGS AND PLEURA : Clear lungs. Normal pulmon hiwot vascul arity. No pleura l effusi on. No pneumo thorax . HEART, MEDIAS TINUM AND KALYAN: Heart is normal in size. Normal medias tinal and hilar contou r. BONES AND SOFT TISSUE S: No acute abnorm ality. IMPRES MARTA: No acute abnorm ality. WSN: [id number] Orderi ng Physic naty: Ethan Cartagnea Dictat ed By: Dilip Clay MD, V Dictat ed Date/T juana: 3:16 pm Review ed By: Genny juarez MD, Dilip Sanchez Signed By: Dilip Clay MD, V Signed Date/T juana: 3:16 pm Transc ribed By: KAVON Transc ribed Date/T juana: 3:14 pm Patien t Class: Outpat ient [facility] (Outpt Imaging) [address], [place], [address], 06/03/2024 08:36:30 Result Notes None recorded. Problems Name Problem SNOMED Code Status Onset Date Resolution Date Notes Provider Name and Address Organization Details Recorded Time Adult health examinat ion Completed 201310/07/2013 RECORDED 08/06/19 14 3:40PM BY SRINIVAS VEGA MA, ANNOTATI ON/ADDEN DUM Not Available [facility] 4 15:07:27 Anxiety state 721182081 Active 2013 Not Available [facility] 1 18:13:44 Screenin g for malignan t neoplasm of breast Completed 201110/07/2013 RECORDED 02/13/20 12 4:18PM BY SRINIVAS VEGA MA, ANNOTATI ON/ADDEN DUM Not Available [facility] 4 15:07:28 Impacted [place] 24600140 Completed 201210/07/2013 RECORDED 08/08/19 13 12:54PM BY SRINIAVS VEGA MA, ANNOTATI ON/ADDEN DUM BIMAL Chance, 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 6 13:40:54 Fibromyo sitis 25025078 Active 2013 Not Available [facility] 1 18:13:44 Influenz a vaccine needed 07275551880 06 Completed 201310/07/2013 RECORDED 08/06/19 14 3:39PM BY SRINIVAS VEGA MA, ANNOTATI ON/ADDEN DUM Not Available [facility] 4 15:07:28 Pure hypercho lesterol emia 132295253 Completed 201307/18/2022 Jake Gabriel MD [address] [address], [place], [address] , [facility] 3 10:45:55 Low back pain 600178833 Completed 201310/07/2013 RECORDED 08/06/19 14 3:39PM BY SRINIVAS VEGA MA, ANNOTATI ON/ADDEN DUM Not Available [facility] 4 15:07:28 Medial epicondy litis 09004162 Completed 201304/22/2018 Adithya Bella MD [address], [place], [address] , [facility] 9 14:53:40 Active or passive immuniza tion Completed 201010/07/2013 RECORDED 01/31/20 11 11:47AM BY LEANDRO OBRIEN, HISTORIC AL SUMMARY Not Available [facility] 4 15:07:28 Administ ration of bacteria l and viral vaccine Completed 201010/07/2013 RECORDED 01/31/20 11 11:47AM BY LEANDRO OBRIEN, HISTORIC AL SUMMARY Not Available [facility] 4 15:07:28 Osteopor osis 67366721 Active 2013 FOLLOWED BY INSIDE SALES PERSON Not Available [facility] 1 18:13:44 Urinary tract infectio us disease 40335317 Completed 201310/07/2013 RECORDED 08/06/19 14 3:40PM BY SRINIVAS VEGA MA, STEVEN ON/ADDEN DUM BIMAL Chance, [facility] 6 13:41:10 Screenin g for malignan t neoplasm of cervix Completed 201110/07/2013 RECORDED 02/13/20 12 4:18PM BY SRINIVAS VEGA MA, ANNOTBRYON ON/ADDEN DUM Not Available [facility] 4 15:07:29 Screenin g for malignan t neoplasm of colon Completed 201110/07/2013 RECORDED 02/13/20 12 4:18PM BY SRINIVAS VEGA MA, ANNOTBRYON ON/ADDEN DUM Not Available [facility] 4 15:07:29 Tinnitus 44147781 Completed 201110/07/2013 RECORDED 02/13/20 12 4:18PM BY SRINIVAS VEGA MA, ANNOTATI ON/ADDEN DUM Not Available [facility] 4 15:07:29 Noninfla mmatory disorder of the vagina 30515890 Completed 201110/07/2013 IMPRESSI ON: HEALING, HERPES CULTURE WAS NEGATIVE BUT CLINICAL LY STILL C/W HERPETIC INFECTIO N, WILL FINISH VALTREX AND WILL CALL BACK IF SHE HAS ANY SUBSEQUE NT FLARES FOR ANTI-VIR AL MEDICATI ON.; RECORDED 02/13/20 12 4:18PM BY SRINIVAS VEGA MA, ANNOTATI ON/ADDEN DUM Not Available [facility] 4 15:07:29 Adult health examinat ion Completed 201310/30/2013 RECORDED 08/06/19 14 3:40PM BY SRINIVAS VEGA MA, ANNOTATI ON/ADDEN DUM Not Available [facility] 4 13:13:38 Screenin g for malignan t neoplasm of breast Completed 201110/30/2013 RECORDED 02/13/20 12 4:18PM BY SRINIVAS VEGA MA, ANNOTATI ON/ADDEN DUM Not Available [facility] 4 13:13:38 Impacted cerumen 64240347 Completed 201210/30/2013 RECORDED 08/08/19 13 12:54PM BY SRINIVAS VEGA MA, ANNOTATI ON/ADDEN DUM BIMAL [facility] [place] [facility] 6 13:40:33 Neck pain 32097093 Completed 201110/30/2013 RECORDED 02/13/20 12 4:18PM BY SRINIVAS VEGA MA, ANNOTATI ON/ADDEN DUM Not Available [facility] 4 13:13:38 Screenin g for malignan t neoplasm of colon Completed 201310/30/2013 RECORDED 09/16/19 14 11:48AM BY WIL RUFFIN MA, ANNOTATI ON/ADDEN DUM Not Available [facility] 4 13:13:38 Influenz a vaccine needed [id number] 06 Completed 201310/30/2013 RECORDED 08/06/19 14 3:39PM BY SRINIVAS VEGA MA, STEVEN ON/ADDEN DUM Not Available [facility] 4 13:13:38 Low back pain 255013015 Completed 201310/30/2013 RECORDED 08/06/19 14 3:39PM BY SRINIVAS VEGA MA, STEVEN ON/ADDEN DUM Not Available [facility] 4 13:13:38 Active or passive immuniza tion Completed 201010/30/2013 RECORDED 01/31/20 11 11:47AM BY LEANDRO OBRIEN, HISTORIC AL SUMMARY Not Available [facility] 4 13:13:38 Administ ration of bacteria l and viral vaccine Completed 201010/30/2013 RECORDED 01/31/20 11 11:47AM BY LEANDRO OBRIEN, HISTORIC AL SUMMARY Not Available [facility] 4 13:13:38 Urinary tract infectio us disease 00684370 Completed 201310/30/2013 RECORDED 08/06/19 14 3:40PM BY SRINIVAS VEGA MA, STEVEN ON/ADDEN DUM BIMAL Chance [place] [facility] 6 13:41:10 Screenin g for malignan t neoplasm of cervix Completed 201110/30/2013 RECORDED 02/13/20 12 4:18PM BY SRINIVAS VEGA MA, STEVEN ON/ADDEN DUM Not Available [facility] 4 13:13:39 Tinnitus 50295352 Completed 201110/30/2013 RECORDED 02/13/20 12 4:18PM BY SRINIVAS VEGA MA, ANNOTATI ON/ADDEN DUM Not Available [facility] 4 13:13:39 Acute upper respirat ory infectio n 97977283 Completed 201302/13/2014 IMPRESSI ON: WITH COUGH, TRY SUPPORTI VE TX FOR A FEW MORE DAYS BUT WAS GIVEN A SCRIPT FOR ABX TO FILL IF HER SINUS SYMPTOMS PERSIST/ WORSEN; RECORDED 09/16/19 14 12:59PM BY NATALY DEVI PA-C, OFFICE VISIT BIMAL Chance, [facility] 4 09:12:03 Noninfla mmatory disorder of the vagina 82444929 Completed 201110/30/2013 IMPRESSI ON: HEALING, HERPES CULTURE WAS NEGATIVE BUT CLINICAL LY STILL C/W HERPETIC INFECTIO N, WILL FINISH VALTREX AND WILL CALL BACK IF SHE HAS ANY SUBSEQUE NT FLARES FOR ANTI-VIR AL MEDICATI ON.; RECORDED 02/13/20 12 4:18PM BY SRINIVAS VEGA MA, ALEXATI ON/ADDEN DUM Not Available [facility] 4 13:13:39 Adult health examinat ion Completed 201310/31/2013 RECORDED 08/06/19 14 3:40PM BY SRINIVAS VEGA MA, ANNOTATI ON/ADDEN DUM Not Available [facility] 4 03:54:45 Screenin g for malignan t neoplasm of breast Completed 201110/31/2013 RECORDED 02/13/20 12 4:18PM BY SRINIVAS VEGA MA, ANNOTATI ON/ADDEN DUM Not Available [facility] 4 03:54:45 Impacted cerumen 74845412 Completed 201210/31/2013 RECORDED 08/08/19 13 12:54PM BY SRINIVAS VEGA MA, ANNOTATI ON/ADDEN DUM BIMAL Chance [facility] 6 13:40:33 Neck pain 45475244 Completed 201110/31/2013 RECORDED 02/13/20 12 4:18PM BY SRINIVAS VEGA MA, ANNOTATI ON/ADDEN DUM Not Available [facility] 4 03:54:45 Screenin g for malignan t neoplasm of colon Completed 201310/31/2013 RECORDED 09/16/19 14 11:48AM BY WIL RUFFIN MA, ANNOTATI ON/ADDEN DUM Not Available [facility] 4 03:54:45 Influenz a vaccine needed 12936415107 06 Completed 201310/31/2013 RECORDED 08/06/19 14 3:39PM BY SRINIVAS VEGA MA, ANNOTATI ON/ADDEN DUM Not Available [facility] 4 03:54:45 Low back pain 063219910 Completed 201310/31/2013 RECORDED 08/06/19 14 3:39PM BY SRINIVAS VEGA MA, STEVEN ON/ADDEN DUM Not Available [facility] 4 03:54:45 Active or passive immuniza tion Completed 201010/31/2013 RECORDED 01/31/20 11 11:47AM BY LEANDRO OBRIEN, HISTORIC AL SUMMARY Not Available [facility] 4 03:54:45 Administ ration of bacteria l and viral vaccine Completed 201010/31/2013 RECORDED 01/31/20 11 11:47AM BY LEANDRO OBRIEN, HISTORIC AL SUMMARY Not Available [facility] 4 03:54:45 Urinary tract infectio us disease 66739346 Completed 201310/31/2013 RECORDED 08/06/19 14 3:40PM BY SRINIVAS VEGA MA, STEVEN ON/ADDEN DUM BIMAL [facility] [place] [facility] 6 13:41:10 Screenin g for malignan t neoplasm of cervix Completed 201110/31/2013 RECORDED 02/13/20 12 4:18PM BY SRINIVAS VEGA MA, STEVEN ON/ADDEN DUM Not Available [facility] 4 03:54:45 Tinnitus 19691002 Completed 201110/31/2013 RECORDED 02/13/20 12 4:18PM BY SRINIVAS VEGA MA, ANNOTATI ON/ADDEN DUM Not Available [facility] 4 03:54:45 Noninfla mmatory disorder of the vagina 87377271 Completed 201110/31/2013 IMPRESSI ON: HEALING, HERPES CULTURE WAS NEGATIVE BUT CLINICAL LY STILL C/W HERPETIC INFECTIO N, WILL FINISH VALTREX AND WILL CALL BACK IF SHE HAS ANY SUBSEQUE NT FLARES FOR ANTI-VIR AL MEDICATI ON.; RECORDED 02/13/20 12 4:18PM BY SRINIVAS VEGA MA, ANNOTATI ON/ADDEN DUM Not Available [facility] 4 03:54:45 Hyperlip idemia 25021238 Active Not Available [facility] 18:13:44 Fatigue 61453454 Completed 02/10/2016 BIMAL Chance, [facility] 6 13:40:58 Cough 45178987 Completed 10/20/2014 BIMAL Chance, [facility] 5 09:18:24 Urinary tract infectio us disease 80016116 Completed 02/10/2016 BIMAL Chance, [facility] 6 13:41:10 Impacted cerumen 33184944 Completed 02/10/2016 BIMAL Chance, [facility] 6 13:40:33 Hearing loss 87255753 Completed 02/10/2016 BIMAL Chance, [facility] 6 13:40:36 Glaucoma suspect Active 2018 Jusko Not Available [facility] 1 18:13:44 Insomnia 838473031 Active 2020 Not Available [facility] 18:13:44 History of vertigo 963056279 Active 2021 Temitope Mckeon PA-C [address] [facility] [address], [place], [address] , [facility] 2 10:59:45 Impacted cerumen of bilatera l ears 54896771115 24003 Completed 202107/18/2022 Jake Gabriel MD [address] [address], [place], [address] , [facility] 3 10:45:36 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 3 11:05:23 Closed fracture of distal end of right radius 51443568463 395720 Active 2023 Jan Mckeon PA-C [address] [address], [place], [address] , [facility] 4 12:21:53 Lacerati on of left lower leg 43021730011 114922 Completed 202306/02/2024 Ethan Azevedo MD [address] [address], [place], [address] , [facility] 5 14:30:46 Problem Notes None recorded. Procedures Surgical History Date Name Laterality Status Provider Name and Address Organization Details Recorded Time 11/16/19 24 Most Recent Mammogram completed Kayley Benitez [facility] 11/16/2023 12:24:35 08/24/19 24 Advanced Care Planning completed Jake Gabriel MD [address] [address], [place], [address], [facility] 08/24/2023 08:48:07 10/04/19 23 Dxa bone density costa vrt fx completed Kayley Benitez [facility] 10/20/2022 10:31:59 07/19/19 23 Advanced Care Planning completed Jake Gabriel MD [address] [address], [place], [address], [facility] 07/17/2022 09:15:51 11/08/19 22 Cataract Surgery completed Agustín Fernández MA [facility] 12/26/2021 13:02:55 09/24/19 21 Most Recent Bone Density completed Esther Obrien [facility] 10/12/2020 15:36:44 09/24/19 21 Mammogram Screening completed Sloane Moreno [facility] 09/28/2020 14:48:30 05/26/19 20 Mini-Cog Test completed Srinivas vega MA [facility] 05/26/2019 13:39:03 04/22/19 19 Mini-Cog Test completed Srinivas vega MA [facility] 04/22/2018 14:07:57 04/20/19 18 Fall Risk Assessment completed Srinivas vega MA [facility] 04/20/2017 13:40:03 04/20/19 18 Mini-Cog Test completed Srinivas vega MA [facility] 04/20/2017 13:41:33 04/19/19 17 Fall Risk Assessment completed Loli Turpin MA [facility] 04/19/2016 13:10:15 04/19/19 17 Mini-Cog Test completed Loli Turpin MA [facility] 04/19/2016 13:12:44 02/13/20 14 Date of Last Pap Smear completed Srinivas vega MA [facility] 01/29/2015 15:42:42 08/28/19 14 Date of Last Colonoscopy completed Esther Obrien [facility] 10/12/2020 15:36:55 08/28/19 14 Colonoscopy completed Srinivas vega MA [facility] 02/10/2016 13:41:50 11/24/18 80 Endometrial Biopsy completed Srinivas vega MA [facility] 01/29/2015 15:42:43 Carpal tunnel surgery completed Srinivas vega MA [facility] 04/20/2017 13:35:21 Endometrial Biopsy completed Srinivas vega MA [facility] 04/24/2020 08:12:52 Imaging Results Imaging Date Name Status LastModified by Organiz ation Details LastModified Time 08/28/2023 XR, clavicle completed [facility] (Outpt Imaging) [address] [place], [address], 08/29/2023 10:47:20 08/28/2023 XR, clavicle completed [facility] [address] [place], [address], 08/29/2023 10:40:49 09/07/2023 XR, wrist, 3 or more view completed Information not available 09/11/2023 16:06:13 09/07/2023 XR, wrist, 3 or more view completed Information not available 09/11/2023 16:06:14 09/07/2023 XR, wrist, 2 view completed Information not available 09/11/2023 16:06:14 10/03/2023 US, head + neck, soft tissue completed [facility] (Outpt Imaging) [address] [place], [address], 10/05/2023 16:26:46 10/03/2023 US, head + neck, soft tissue completed [email or web address] Information not available 10/04/2023 09:52:38 10/17/2023 MRI, clavicle, w/o contrast completed [facility] [address] [place], [address], 10/22/2023 07:54:22 11/16/2023 MAMMO, screening, digital, bilateral completed [email or web address] [facility] [address] [place] [address], [address], 11/16/2023 12:24:39 04/07/2024 ct guided needle biopsy (PROC) completed [address] (Medical Records) [address] [place], [address], 04/11/2024 13:42:50 02/29/2024 XR, shoulder completed [email or web address] [facility] (Medical Records) [address] [place], [address], 04/17/2024 16:25:43 02/29/2024 XR, shoulder completed [email or web address] [facility] (Medical Records) [address] [place], [address], 04/17/2024 16:26:08 06/02/2024 XR, chest, 2 view completed [facility] (Outpt Imaging) [address], [place], [address], 06/03/2024 08:36:30 Procedure Notes None recorded. Medical Equipment None Reported. Allergies No known drug allergies Medications Name Sig Start Date Stop Date Status Note LastModified by Organization Details LastModified Time Prescript ion - Prior Authoriza tion Request 09/20 completed Not Available Not Available Not Available cyclobenz aprine 10 mg tablet Take 1 tab at bedtime for 10 days 05/25 completed Not Available Not Available Not Available amoxicill in 500 mg capsule 04/24 completed Not Available Not Available Not Available desonide 0.05 % topical cream 12/20 completed changed to hydrocor tisone cream; new Rx to follow Not Available Not Available Not Available Saline Nasal Mist 0.65 % spray aerosol Take 1 spray every day by nasal route in the morning for 90 days. 08/23 completed Not Available Not Available Not Available prednison e 10 mg tablet TAKE 5 TABLETS BY MOUTH DAILY FOR 2 DAYS, THEN TAKE 4 TABLETS DAILY FOR 2 DAYS, THEN TAKE 3 TABLETS DAILY FOR 2 DAYS, THEN TAKE 2 TABLETS DA 08/23 completed Not Available Not Available Not Available gabapenti n 600 mg tablet TAKE 1 TABLET DAILY IN THE EVENING active Not Available Not Available No t Available azithromy dustin 250 mg tablet TAKE 2 TABLETS ON FIRST DAY , THEN 1 TABLET DAILY FOR 4 DAYS active Not Available Not Available No t Available ofloxacin 0.3 % eye drops 04/20 completed Not Available Not Available Not Available benzonata te 200 mg capsule Take 1 capsule 3 times a day by oral route as needed for 5 days, for cough. 06/16 completed Not Available Not Available Not Available valacyclo vir 1 gram tablet EVERY 12 HOURS 09/24 completed RECORDED 09/27/19 12 4:13PM BY RUBEN AQUINO ON AUTO-JORGE LUIS CTIVATIO N; Not Available Not Available Not Available meloxicam 15 mg tablet TAKE ONE TABLET BY MOUTH EVERY DAY WITH FOOD active Not Available Not Available No t Available cyanocoba irwin (vit B-12) 1,000 mcg tablet Take 1 tablet every day by oral route. 08/26 completed Not Available Not Available Not Available tramadol 50 mg tablet Take 1 tablet 4 times a day by oral route for 30 days. 09/20 completed Not Available Not Available Not Available simvastat in 40 mg tablet TAKE 1 TABLET EVERY EVENING active Not Available Not Available No t Available ketorolac 0.5 % eye drops 12/19 completed Not Available Not Available Not Available lorazepam 0.5 mg tablet TAKE ONE TABLET BY MOUTH EVERY DAY NEEDED X12 DAYS 08/23 completed Not Available Not Available Not Available meclizine 25 mg tablet TAKE ONE TABLET BY MOUTH THREE TIMES A DAY NEEDED 05/20 completed Not Available Not Available Not Available gabapenti n 300 mg capsule TAKE ONE CAPSULE BY MOUTH EVERY DAY NEEDED 12/30 completed Not Available Not Available Not Available hydrocort isone 2.5 % topical cream Apply 1 applicat ion twice a day by topical route as directed for 14 days. 10/25 completed Not Available Not Available Not Available codeine 10 mg-guaife nesin 100 mg/5 mL oral liquid Take 10 mL every 6 hours by oral route as needed for 7 days. 10/03 completed Not Available Not Available Not Available gabapenti n 100 mg capsule TAKE ONE TO THREE CAPSULES BY MOUTH EVERY DAY AT BEDTIME NEEDED FOR SLEEP 08/26 completed Not Available Not Available Not Available levofloxa dustin 500 mg tablet Take 1 tablet every day by oral route for 10 days. 04/19 completed Not Available Not Available Not Available morphine 15 mg immediate release tablet TAKE 0.5 TABLET BY MOUTH 4 TIMES A DAY NEEDED 06/02 completed Not Available Not Available Not Available doxycycli ne hyclate 100 mg tablet Take 2 tables ALTAF x 1 dose 10/25 completed Not Available Not Available Not Available amoxicill in 875 mg-potass ium clavulana te 125 mg tablet TWO TIMES DAILY active Not Available Not Available No t Available oxycodone 5 mg tablet TAKE ONE TABLET BY MOUTH EVERY 6 HOURS NEEDED FOR PAIN 06/02 completed Not Available Not Available Not Available Sleep Aid (diphenhy dramine) 25 mg tablet Take 1 tablet every other day by oral route at bedtime. active Not Available Not Available No t Available azithromy dustin 500 mg tablet TAKE 1 TABLET BY MOUTH ONCE DAILY WITH FOOD FOR 3 DAYS 08/23 completed Not Available Not Available Not Available Vitamin D3 25 mcg (1,000 unit) capsule Take 1 capsule every day by oral route for 90 days. 09/16 completed Not Available Not Available Not Available nitrofura ntoin monohydra te/macroc rystals 100 mg capsule Take 1 capsule twice a day by oral route for 7 days. 2014 active Not Available Not Available Not Avai lable duloxetin e 30 mg capsule,d elayed release TAKE 1 CAPSULE TWICE A DAY 08/30 completed Not Available Not Available Not Available duloxetin e 60 mg capsule,d elayed release TAKE 1 CAPSULE DAILY 2024 active Not Available Not Available Not Avai lable pregabali n 75 mg capsule Take 1 capsule twice a day by oral route as directed for 90 days. 04/22 completed Lyrica Not Available Not Available Not Available Cervical Traction USE DAILY FOR CERVICAL SPINE ARTHRITI S (721.0) 04/10 completed RECORDED 07/08/19 13 9:54AM BY SRINIVAS VEGA MA, MEDICATI ON AUTO-JORGE LUIS CTIVATIO N; Not Available Not Available Not Available Citracal DAILY active RECORDED 08/06/19 14 3:39PM BY SRINIVAS VEGA MA, OFFICE VISIT; Not Available Not Available Not Available Reclast 6.24 --- reclast q yr - has had 3 times - from endo active Not Available Not Available No t Available Prevnar 13 (PF) 0.5 mL intramusc ular syringe 10/03 completed Not Available Not Available Not Available Prolia 60 mg/mL subcutane ous syringe Inject 1 mL as needed by sub-q route for 30 days. 05/25 completed Not Available Not Available Not Available Shefali Allergy 60 mg tablet Take 1 tablet twice a day by oral route as needed for 90 days. 08/23 completed Not Available Not Available Not Available antipyrin e-benzoca ine 5.5 %-1.4 % ear drops 3 TIMES PER DAY FILLING AFFECTED EAR CANAL 02/10 completed RECORDED 02/11/20 13 4:19PM BY SRINIVAS VEGA MA, OFFICE VISIT; Not Available Not Available Not Available Adult Probiotic 3 billion cell capsule Take 1 capsule every day by oral route. 08/26 completed Not Available Not Available Not Available melatonin ER 10 mg tablet,ex tended release Take 1 tablet as needed by oral route at bedtime. active Not Available Not Available No t Available Flonase Allergy Relief 50 mcg/actua tion nasal spray,bert pension [place] 1 spray every day by intranas al route. 12/19 completed Not Available Not Available Not Available Flonase Sensimist 27.5 mcg/actua tion nasal spray,bert pension Take 2 sprays every day by nasal route at bedtime for 90 days. 2021 active Not Available Not Available Not Avai lable Vitals Date Recorded Body height Body mass index (BMI) Body weight Heart rate Oxygen saturation Oxygen saturation in Arterial blood by Pulse oximetry Body temperature Systolic blood pressure Diastolic blood pressure Provider Name and Address Organization Details Last Updated DateTime 4 159.39 cm 23.2 kg/m2 37318.0 1 g 77 /min 98 % 98 % 98.2 [degF] 122 mm[Hg] 58 mm[Hg] Srinivas lindquist MA [email or web address] 4 11:28:49 Date Recorded Body height Body mass index (BMI) Body weight Oxygen saturation Oxygen saturation in Arterial blood by Pulse oximetry Heart rate Body temperature Systolic blood pressure Diastolic blood pressure Provider Name and Address Organization Details Last Updated DateTime 4 159.39 cm 23.1 kg/m2 46576.2 2 g 98 % 98 % 85 /min 98.2 [degF] 120 mm[Hg] 72 mm[Hg] Naa Ferrera MA [facility] 4 13:56:15 Date Recorded Body height Body mass index (BMI) Body weight Heart rate Oxygen saturation Oxygen saturation in Arterial blood by Pulse oximetry Body temperature Systolic blood pressure Diastolic blood pressure Provider Name and Address Organization Details Last Updated DateTime 4 159.39 cm 23.5 kg/m2 53686.4 g 83 /min 96 % 96 % 98.2 [degF] 154 mm[Hg] 83 mm[Hg] Priscilla Osborne LPN [facility] 4 11:41:42 Date Recorded Body height Body mass index (BMI) Body weight Heart rate Oxygen saturation Oxygen saturation in Arterial blood by Pulse oximetry Body temperature Systolic blood pressure Diastolic blood pressure Provider Name and Address Organization Details Last Updated DateTime 5 159.39 cm 23.2 kg/m2 77628.0 1 g 84 /min 99 % 99 % 98.4 [degF] 157 mm[Hg] 84 mm[Hg] Virgen Sánchez MA [facility] 5 14:32:14 Date Recorded Body height Body mass index (BMI) Body weight Heart rate Oxygen saturation Oxygen saturation in Arterial blood by Pulse oximetry Body temperature Systolic blood pressure Diastolic blood pressure Provider Name and Address Organization Details Last Updated DateTime 5 159.39 cm 22.7 kg/m2 17104.6 3 g 104 /min 97 % 97 % 102 [degF] 134 mm[Hg] 81 mm[Hg] Nataly Caro MA [facility] 5 13:53:30 Social History Question Answer Notes LastModified by Organizat ion Details LastModified Time Tobacco Smoking Status Never Smoker BIMAL Vann [facility] 01/27/2014 16:13:52 Do You Have An Advance Directive? No HCP Information not available 12/26/2021 What Is Your Level Of Alcohol Consumption? None Information not available 01/27/2014 Is Blood Transfusion Acceptable In An Emergency? Yes Information not available 01/29/2015 What Is Your Level Of Caffeine Consumption? Moderate 1-2 Cups Of Coffee Daily Information not available 01/27/2014 How Much Tobacco Do You Chew? None Information not available 01/29/2015 Are You Currently Employed? Yes Retired 05/2021 Information not available 08/24/2023 What Type Of Diet Are You Following? REGULAR Steel Oats With Fruit Information not available 08/24/2023 Which Illicit Or Recreational Drugs Have You Used? None Information not available 01/27/2014 Do You Or Have You Ever Used E-cigarettes Or Vape? 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 Yes Information not available 12/26/2021 Live Alone Or With Others? Alone Information not available 12/26/2021 Do You Take Precautions To Prevent Distracted Driving? Yes Information not available 01/29/2015 How Often Do You Need To Have Someone Help You When You Read Instructions, Pamphlets, Or Other Written Material From Your Doctor Or Pharmacy? Never Information not available 01/29/2015 Have You Served In The ? No Information not available 02/10/2016 Have You Or Anyone In Your Household Had Any Of The Following Symptoms In The Last 14 Days: Sore Throat, Cough, Chills, Body Aches For Unknown Reasons, Shortness Of Breath For Unknown Reasons, Loss Of Smell, Loss Of Taste, Fever At Or Greater Than 100 Degrees Fahrenheit? No Information not available 04/24/2020 Are You Or Anyone In Your Household A Health Care Provider Or Emergency Responder? No Information not available 04/24/2020 To The Best Of Your Knowledge Have You Been In Close Proximity To Any Individual Who Tested Positive For COVID-19? No Information not available 04/24/2020 *AWV ONLY* Are You Presently Prescribed Opioid Medication By PCP Or Specialist? If YES -Provider Assess The Benefit For Other, Non-opioid Pain Therapies Instead, Even If The Patient Does Not Have OUD But Is Possibly At Risk. No Information not available 04/24/2020 Have You Recently Traveled To A [place] [id number] High Risk Area Or Gathering In The Last 10 Days? No Information not available 04/24/2020 What Was The Date Of Your Most Recent Tobacco Screening? 06/02/2024 [email or web address] Information not available 06/02/2024 How Many Children Do You Have? 2 Aaron And Chavo Information not available 04/24/2020 Do You Use Protection During Sex? No Information not available 12/26/2021 Do You Use Your Seat Belt Or Car Seat Routinely? Yes Information not available 12/26/2021 Seat Belts Used Routinely Yes Information not available 12/26/2021 Are You Sexually Active? No Information not available 01/29/2015 Smoke Alarm In Home Yes Information not available 12/26/2021 Do You Have Smoke And Carbon Monoxide Detectors In Your Home? Yes Information not available 12/26/2021 At What Age Did You Start Smoking Tobacco? 0 Information not available 01/29/2015 Are You Passively Exposed To Smoke? No Information not available 01/29/2015 Do You Or Have You Ever Used Smokeless Tobacco? Never Used Smokeless Tobacco Information not available 04/24/2020 How Much Tobacco Do You Smoke? No Information not available 04/24/2020 Do You Use Any Illicit Or Recreational Drugs? No Information not available 12/26/2021 Do You Use Sunscreen Routinely? No Information not available 01/29/2015 How Many Years Have You Smoked Tobacco? 0 Information not available 01/29/2015 Do You Or Have You Ever Used Any Other Forms Of Tobacco Or Nicotine? No Information not available 12/26/2021 Sex: Unknown Functional Status Question Answer Note LastModified by Organizat ion Details LastModified Time Are you able to walk? YESWOREST Information not available 12/26/2021 Are you able to care for yourself? Yes ; (Umer) passed 04/22/20 from cardiac arrest Information not available 04/24/2020 What is your exercise level? Moderate walking daily (up to 10,000)(when weather allows); weight training Information not available 08/24/2023 Mental Status None recorded. Family History Relationship Description Onset Age of this Age Resolved Age Notes LastModified by Organization Details LastModified Time Maternal Grandmother Heart disease 78 [email or web address] Not available 2021 13:02:31 Mother Dementia 80 89 [email or web address] s Not available 01/27/2014 16:13:52 Mother Arthritis [email or web address] s Not available 01/27/2014 16:13:52 Mother Anemia [email or web address] Not available 13:02:31 Father Heart disease 57 [email or web address] Not available 2021 13:02:31 Sister Heart disease 89 [email or web address] s Not available 07/18/2022 10:24:10 Medical History Condition Response Gout N Other N Kidney Stones N Blood Diseases N Hyperthyroidism N Breast Cancer N Hypothyroidism N Lung Disease N Depression Y COPD N Defects or Inherited Disease Y Anesthesia Complications N Headaches/Migraines N Anxiety Disorder Y Varicose Veins N Obesity N Vision or Eye Problems N Arthritis Y Head Injury/Concussion N Infertility N Polyps N Congenital Anomalies N Acid Reflux (GERD) N Cancer N Stroke N ADHD N Endometriosis Y High Cholesterol Y Liver Disease N Fibromyalgia Y Kidney Disease N Heart Problems N Ear or Hearing Problems N Hospitalizations N Thyroid Problems N GI Problems N Acne N Eating Disorder N Skin Problems N Anemia N Constipation N Bladder Problems N Mental Illness N Diabetes N Ovarian Cancer N Blood Transfusions N Seizures/Epilepsy N Tuberculosis N AIDS/HIV N Congestive Heart Failure (CHF) N Eczema N Abuse/Domestic Violence N Diverticulitis N Asthma N Allergies N Reflux/GERD N Hepatitis N Pulmonary Embolism N Hypertension N Chicken Pox N Autism Spectrum Disorder (ASD) N Osteoporosis Y Gynecological History Statement/Question Response If Post Menopausal, Age at Menopause 54 Abnormal Pap N Date of Last Colonoscopy 08/27/2013 Most Recent Bone Density 09/23/2020 Sexually Active? N STIs/STDs N Date of Last Pap Smear 02/12/2014 Current Control Method Menopause Most Recent Mammogram 11/16/2023 N Obstetrics History GPAL:G 0 P 0 0 0 0 Immunizations Vaccine Type Date Status Note Provider Nam e and Address Organization Details Recorded Time Influenza, split virus, trivalent, preservative [facility] 11:37:25 zoster live 4 completed [facility] Available [facility] 02[facility]22[facility]2021 18:13:44 Influenza, split virus, trivalent, preservative 5 [facility] 11:37:24 Influenza, split virus, quadrivalent, preservative 6 completed [facility] Available [facility] 02/22/2021 18:13:44 Influenza, high-dose, trivalent, PF 7 [facility]21 14:20:36 Pneumococcal conjugate PCV 13 8 [facility]20[facility]21 10:39:07 Tdap 8 completed Not Available [facility] 02/22/2021 18:13:44 Influenza, high-dose, trivalent, PF 8 completed Not Available [facility] 02/22/2021 18:13:44 Influenza, high-dose, trivalent, PF 9 completed Not Available [facility] 02/22/2021 18:13:44 COVID-19, mRNA, LNP-S, PF, 100 mcg/0.5mL dose or 50 mcg/0.25mL dose 1 [facility]21 10:39:07 COVID-19, mRNA, LNP-S, PF, 100 mcg/0.5mL dose or 50 mcg/0.25mL dose 1 completed BIMAL Anderson, [facility] 09/20/2021 10:39:07 zoster recombinant 1 completed BIMAL Anderson, [facility] 09/20/2021 10:39:07 Influenza, split virus, trivalent, preservative 5 completed BIMAL Anderson, [facility] 09/20/2021 10:39:07 Influenza, MDCK, quadrivalent, PF 1 completed BIMAL Anderson, [facility] 09/20/2021 10:39:07 COVID-19, mRNA, LNP-S, PF, 100 mcg/0.5mL dose or 50 mcg/0.25mL dose [address] [facility] 09/20/2021 10:39:07 Influenza, adjuvanted, trivalent, PF 8 completed Isadora Katz BIMAL jamie, [facility] 09/20/2021 10:39:07 zoster recombinant 2 completed BIMAL Anderson, [facility] 09/20/2021 10:39:07 Influenza, split virus, trivalent, preservative [address] [facility] 09/20/2021 10:39:07 Influenza, high-dose, trivalent, PF 7 completed BIMAL Anderson, [facility] 09/20/2021 10:39:07 Influenza, adjuvanted, quadrivalent, PF 0 completed BIMAL Anderson, [facility] 09/20/2021 10:39:07 Influenza, adjuvanted, trivalent, PF [address] [facility] 09/20/2021 10:39:07 typhoid, ViCPs 4 completed Nataly RajeshBIMAL Anand, [facility] 06/02/2024 13:44:13 Hep A-Hep B 4 completed Nataly Caro BIMAL ayala, [facility] 06/02/2024 13:44:13 Hep A-Hep B 4 completed Nataly Rajesh Samuelkimber BIMAL ayala, [facility] 06/02/2024 13:44:13 Influenza, adjuvanted, trivalent, PF 4 completed Nataly Rajeshzahida Caro BIMAL ayala, [facility] 06/02/2024 13:44:13 Influenza, adjuvanted, quadrivalent, PF 3 completed Nataly Rajeshzahida Caro BIMAL ayala, [facility] 06/02/2024 13:44:13 Hep A-Hep B 4 completed Nataly Rajesh Bakerkimber BIMAL ayala, [facility] 06/02/2024 13:44:13 pneumococcal polysaccharide PPV23 7 completed Not Available [facility] 04/12/2019 02:21:26 Influenza, split virus, trivalent, preservative 1 completed Not Available [facility] 02/22/2021 18:13:44 Tdap 8 completed Not Available [facility] 02/22/2021 18:13:44 pneumococcal polysaccharide PPV23 0 completed Not Available [facility] 02/22/2021 18:13:44 Influenza, split virus, trivalent, preservative 2 completed Not Available [facility] 02/22/2021 18:13:44 Influenza, split virus, trivalent, preservative 3 completed Not Available [facility] 02/22/2021 18:13:44 Influenza, high-dose, quadrivalent, PF 2 completed Jake Gabriel MD [address] [address], [place], [address], [facility] 12/19/2021 17:37:40 Past Encounters Encounter ID Performer Location Encounter Start Date Encounter Closed Date Diagnosis/Indication Diagnosis SNOMED-CT Code Diagnosis ICD10 Code Diagnosis Note [id number] [facility] [address] [facility] [place] [address] 01/25/2011 00:00:00 [id number] autoEComm erce [address] [facility] [place] [address] 08/01/2011 00:00:00 [id number] autoEComm erce [address] [facility] [place] [address] 09/15/2011 00:00:00 [id number] autoEComm erce [address] [facility] [place] [address] 09/22/2011 00:00:00 [id number] autoEComm erce [address] [facility] [place] [address] 02/13/2012 00:00:00 [id number] autoEComm erce [address] [facility] [place] [address] 07/22/2012 00:00:00 [id number] autoEComm erce [address] [facility] [place] [address] 08/07/2012 00:00:00 [id number] autoEComm erce [address] [facility] [place] [address] 02/10/2013 00:00:00 [id number] autoEComm erce [address] [facility] [place] [address] 08/05/2013 00:00:00 [id number] autoEComm erce [address] [facility] [place] [address] 09/15/2013 00:00:00 [id number] Srinivas adams [place] Main Office [address] [place] [address] 01/27/2014 16:02:32 01/27/2014 16:52:00 Adult health examination 025042780 Fibromyositis 85272690 [facility] 73513909 Fatigue 00074904 [id number] Loli Turpin [place] Main Office [address] [address] [place] [address] 04/02/2014 15:23:49 04/02/2014 16:34:49 Cough 68646065 Fibromyositis 35414116 Urinary tr act infectious disease 73133186 [id number] Colin Hou Main Office [address] [address] [place] [address] 08/24/2014 11:30:18 08/24/2014 12:01:36 Impacted cerumen 20574351 Hearing loss 15644732 se condary to cerumen impaction [id number] Adithya Bella MD Main Office [address] [address] [place] [address] 01/29/2015 15:32:03 01/29/2015 16:39:41 Adult health examination 572801467 Z00.00 Screening for malignant neoplasm of cervix 773119788 Z12.4 Screening for malignant neoplasm of breast 597585907 Z12.39 Fibromyositis 07675854 M 79.7 [id number] Adithya Bella MD Main Office [address] [address] [place] [address] 02/10/2016 13:37:03 02/10/2016 14:24:51 Community acquired pneumonia 218828549 J18.9 Cough 38576325 R05 [id number] Adithya Bella MD Main Office [address] [address] [place] [address] 04/19/2016 12:57:36 04/19/2016 14:17:25 Adult health examination 246697144 Z00.00 Administra tion of pneumococcal vaccine 51317623 Z23 Bursitis of shoulder 239 237765 M75.50 Neck pain 82003594 M54.2 Fibromyositis 95793175 M 79.7 Hyperlipidemia 36475224 E78.5 Fatigue 14290781 R53.83 [id number] Adithya Bella MD Main Office [address] [address] [place] [address] 04/20/2017 13:25:57 04/20/2017 14:51:04 Adult health examination 823164429 Z00.[address] Villaneuva Fibromyositis 96162713 M 79.7 Hyperlipidemia 66641505 E78.5 Fatigue 78857445 R53.83 Anxiety state 484936607 F41.1 Cervical s pondylosis without myelopathy 530027759 M47.812 Administra tion of pneumococcal vaccine 17896596 Z23 [id number] Ethan Azevedo MD Main Office [address] [address] [place] [address] 05/21/2017 15:26:54 05/21/2017 15:55:20 Upper respiratory infection 08626559 J06.9 Pt. is advised to use MUcinex DM for cough and nasal saline solution BID. [id number] Adithya Bella MD Main Office [address] [address] [place] [address] 07/06/2017 09:29:02 07/06/2017 10:01:39 Cough 17803860 R05 cxr today, start zpak as directed, hydration, rest. use tessalon perles as needed. call/ return for worsening or concerns. [id number] Elza Stone Main Office [address] [address] [place] [address] 10/03/2017 15:13:10 10/03/2017 15:57:04 Tendinitis of left rotator cuff 8551233818 4252235 M75.82 Overuse injury and fall in the L . rotator cuff. Will refer to PT and for cortisone shot with orthopedis t. Increase Ibuprofen to 400-600 mg 2-3 times daily with food. Fall W19.XXXA 2 months ago [id number] Fernanda Lang Main Office [address] [address] [place] [address] 12/14/2017 12:37:41 12/14/2017 13:27:02 Laceration of thigh 677741840 S71.111A Sutures removed without incident. Dressing applied. Topical wound care and return to activity discussed. Effect of exposure to external cause 76807273 W26.9XXA Surgical follow-up 78946 4000 Z48.02 [id number] Adithya Bella MD Main Office [address] [address] [place] [address] 04/22/2018 13:45:46 04/22/2018 14:57:23 Hepatitis C screening 380757325 Z11.59 Osteoporosis 54181261 M8 1.0 continues on Prolia Adult heal th examination 842218331 Z00.00 Pure hypercholesterolemia 835744869 E78.00 Fibromyositis 94717606 M 79.7 Fatigue 11421647 R53.83 [id number] Temitope Mckeon PA-C Main Office [address] [place] [address] 04/29/2018 09:29:57 04/29/2018 10:42:11 Lumbar sprain 919077929 S33.5XXA lumbar strain. NO symptoms of lumbar radiculopa thy or sciatica at this point. Continue with Ibuprofen 600 mg tid. Begin cyclobenza rachid 10 mg at HS for 10 days. Alternate 10 minutes of hot and cold compresses 2-3 times daily. Continue with regular walking and back stretch exercise BID and gentle yoga only. Avoid over stretching or any new exercise that may exacerbate symptoms. Follow up for continued or worsening symptoms. Consider PT if at 2 weeks less than 50% improvemen t. 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 926747925 M47.812 Fibromyositis 55833752 M 79.7 [id number] Adithya Bella MD [facility] [address] [address] [place] [address] 04/24/2020 08:05:17 04/24/2020 10:32:31 Bereavement 20663426 Z63.4 Anxiety state 901016847 F41.1 Insomnia 810538085 G47.0 0 [id number] Adithya Bella MD Main Office [address] [address] 08/30/2020 08:49:02 08/30/2020 09:56:47 Adult health examination 051938264 Z00.00 Pure hypercholesterolemia 098590205 E78.00 Hepatitis C screening 41 7235588 Z11.59 Anxiety state 692356294 F41.1 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 Followed by [employer] Insomnia 688363770 G47.0 0 [id number] Guillermo Hurd MD [facility] [address] [facility] [address] [place] [address] 09/16/2020 12:37:15 09/16/2020 14:57:10 Upper respiratory infection 97866276 J06.9 She will continue to treat her symptoms. No role for abx. Anterior epistaxis 02376 4002 R04.0 [id number] Jake Gabriel MD Main Office [address] [facility] [address] [place] [address] 12/29/2020 13:05:04 12/29/2020 13:56:18 Fibromyositis 86750674 M79.7 Pure hypercholesterolemia 609308150 E78.00 Lipid trending down, Cuauhtemoc, does not want to adjust statin dose at this time, she will work on diet and exercise instead and we will repeat her fasting lipids in 6 months. Anxiety state F41.1 No thoughts of self harm or harming others, notes to stress related to sudden passing of still trying to cope.She is open to considerin g counseling with Esthela. Cervical s pondylosis without myelopathy 244690027 M47.812 Has had PT in past with Rehab resolution with good relief, will refer.USe of NSAID advised PRN. Osteoporosis 01882513 M8 1.0 Was on Prolia however when DC, notes she was back to being osteoporot ic she has apt with endocrine for osteoporos is. Insomnia 234474463 G47.0 0 Takes lorazepam, [facility]za [facility] Counseling 973608843 Z71 .9 Referral for counseling with Jagjit / BETH Townsend. Please provide patient with contact info to schedule their appointmen torey Shah# email: [email or web address] Tendinitis of left shoulder 0440749323 089023 M75.92 Patient renal function is stable, I advised that we can do NSAIDs however this time she wanted to withhold any NSAIDs use she said if she does decide to take any she will take ibuprofen 600 mg with meal, advised to do this for the next 7 days if she does decide to start and as needed as needed after. She is also going to myofascial massage therapy with good relief, in addition she is also is going to start physical therapy.On examinatio n sensation was intact, strength was preserved in bilateral upper extremity. [id number] Temitope Mckeon PA-C Main Office [address] [place] [address] 09/20/2021 10:33:50 09/20/2021 11:07:17 Facial paresthesia 89895717 R20.2 Unclear if related to cervical spondylosi s /fibromyal greg . WE will check electrolyt es and other labs to r/o organic causes. Pt. is encouraged to document frequency of episodes , duration and accompanyi ng symptoms. Cobalamin deficiency 190 152556 E53.8 Impacted c erumen of bilateral ears 3095302707 473500 H61.23 Recommend to use debrox fro 1 week and return for ear irrigation . [id number] Isadora Katz MA Main Office [address] [place] [address] 10/19/2021 10:58:50 10/19/2021 11:20:05 Impacted cerumen of bilateral ears 1839073629 576273 H61.23 [id number] Jake Gabriel MD Main Office [address] [place] [address] 12/19/2021 14:00:48 12/19/2021 15:29:48 Fatigue 77656557 R53.83 Hyperlipidemia 52218861 E78.5 Influenza vaccine needed 2280310904 106 Z23 Insomnia 695148126 G47.0 0 Takes lorazepam, risk of benzodiaza pine use discussed at lent.Sle ep hygiene discussedW ants to cut or Benzo will darlin to 0.5 daily start gabapentin . Will also refer to sleep medicine for tx option given age and concurrent medication .Risk of sedation discussed. Disorder of vitamin D 38 2568690 E55.9 Skin lesion 73197761 L98 .9 Possible irritation of skin tag, give close proximity to axilla will do low potency steroid. She did have URI sx but it did not appear like a viral exanthem nor pityriasis . The area was around a skin tag skin was mildly erythemato us. No flaking, warmth or discharge. Pt requesting to see derm for skin tag thus referral provided. Seasonal allergy 0174423 04 J30.2 Advised to do daily floanse 2 sprays at bedtime, saline rinse in AM.Shefali 1 tab q12 as needed.Wilian ibarra follow up in . She is afebrile. Anxiety state 697478237 F41.1 Fibromyositis 20336225 M 79.7 Stable on duloxetine . [id number] Fernanda Lang Main Office [address] [facility] [address] [place] [address] 07/18/2022 10:00:22 07/18/2022 12:01:08 Adult health examination 592237761 Z00.00 Patient was counseled on healthy diet, exercise and nutrition due to Body mass index is 23.2 kg/m? ? ?. Last Colonoscop y:Date: 08/27/13Res lt:Plan: will try to get records. Last Mammogram: Date: 09/27/21Resu lt: Birad-2Pla n: Ordered for 10/15 Last Pap smearDate: Result:Herman n: past age for screening. Bone density scanDate: 08/05/18Res ult: osteoporos is of spinePlan: scheduled for September. Vaccines:T dAP: 12/05/21Zos ter rec: 01/12/21, 06/15/21PCV 13: 08/16/17PPS V23: 04/19/16Inf luenza: 12/19/21Cov id: 03/30/20, 05/03/20, 02/07/21 Routine labs today Immunizati on status reviewed. Will screen based on risk factors. Regular dental and ophtho care advised as well as seat belt and sunscreen use. Distracted driving discussed. Medication reconciled . Advance directives discussed. Advance di rective discussed with patient 567590569 Z71.89 HCP and MOLST provided. Fatigue 65103448 R53.83 Z00.00 Hyperlipidemia 65208252 E78.5 Z00.00 Insect bit e, nonvenomous, of abdominal wall 847388944 S30.861A Area is red, but no fluctuance or drainage. In time frame of ppx will do doxy, vignesh affects discussed. Intermitte nt confusion 931946045 R41.0 No neurologic al deficit, concer for possible tia type vs acute stress.Wilian l get MRI firstED red flag discussed. Paresthesia 49596724 R20 .2 Notes around lips.Will ensure not cardiac radiation - thus will get ecgCould be fibroWill check HSV ab. Sacroiliac joint pain 20 2284884 M53.3 Likes to avoid analgesic some component of fibro vs bursitis.W ill start PT.No red flags such as weakness, incontinen ce or loss of sensation. Elevated blood-pressure reading without diagnosis of hypertension 093159326 R03.0 Low sodium diet discussed Wants to hold on meds and check bp at home - will follow up 2 weeks over tele. Counseled on diet/exerc ise Advised to keep BP daily BP log and technique counseled. Red flags of HTN emergency discussed and when to go to ED. Impacted c erumen in left ear 0673286030 753223 H61.22 [id number] Jan Mckeon PA-C Main Office [address] [facility] [address] [facility] [address] 10/25/2022 11:23:03 10/25/2022 12:47:42 Palpitations 53077358 R00.2 stable - offered pt reassuranc e c nl ekg Obstructiv e sleep apnea syndrome 24515160 G47.33 cont f/u c sleep med, cont cpap as dir - heraclio in light of h/o palp above (pt had wondered if cpap caused palp - advised her unlikely) Contact de rmatitis caused by urushiol from [place] poison festus 835616869 L25.5 has had it x ~ 1 wk, no sig help c benadryl gel, rubbing etoh - rec change to calamine and rx c slow pred taper Pain of right wrist 3169 720363 06900 M25.531 x few wks - no direct trauma or fall on hand, but ? d/t overuse from yard work - ? tendonitis vs other - has used voltaren gel c little help --- see above - will likely benefit from pred above, rec avoid nsaids, could take prn tyl, but check xray to r/o hairline fx = trial c thumb spica (has from prior CTS) and get hand specialist eval (cx if fully resolves), prn ice to decrease edema, in future could use prn heat to improve ROM [id number] Jake Gabriel MD Main Office [address] [facility] [address] [place] [address] 08/24/2023 11:17:59 08/24/2023 12:24:37 Adult health examination 051539273 Z00.00 Patient was counseled on healthy diet, exercise and nutrition due to Body mass index is 23.2 kg/m? ? ?. Last Colonoscop y:Date: 08/27/13Resu lt:Plan: ordered. Last Mammogram: Date: 10/03/22Res ult: Birad-2Pla n: Ordered by INSIDE SALES PERSON. Last Pap smearDate: Result:Herman n: past age for screening. Bone density scanDate: 10/03/22Res ult: osteoporos is of spinePlan: On reclast. Following Endo Vaccines:T dAP: 12/05/21Zos ter rec: 01/12/21, 06/15/21PCV 13: 08/16/17PPS V23: 04/19/16PCV 20: Script givenRSV: Script givenInflu kayla: yearly flu encouraged Covid: encourage updated vaccine Routine labs today Immunizati on status reviewed. Will screen based on risk factors. Regular dental and ophtho care advised as well as seat belt and sunscreen use. Distracted driving discussed. Medication reconciled . Advance directives discussed. Fatigue 20851287 R53.83 Z00.00 Hyperlipidemia 67205073 E78.5 Z00.00 Advance di rective discussed with patient 154152613 Z71.89 HCP and MOLST provided. Screening for malignant neoplasm of colon 551155686 Z12.11 Administra tion of pneumococcal vaccine 48499105 Z23 Administra tion of viral vaccine 40656090 Z29.11 Pain of bi lateral hands 8867410031 3313888 M79.641 M79.642 Hx of CTS, pain at wrist will refer to hand surgeon. [id number] Fernanda Lang Main Office [address] [facility] [address] [place] [address] 08/28/2023 13:43:34 08/28/2023 14:26:14 Clavicle pain 543342508 M25.519 344954 Fernanda Lang Main Office [address] [facility] [address] [place] [address] 09/10/2023 11:31:25 09/10/2023 12:32:23 Closed fracture of distal end of right radius 0313078771 1002344 S52.501A seen at ER in [place] - only have adal whiteside to review - attempting to get other recordswil l get ortho evalencour aged pt to go to [facility] later today / tomorrow, bring consult order just in case they need it Laceration of left lower leg 1659968911 1340132 S81.812A had 1 suture placed at ER - advised to have it removed in 10 days - will arrange for next week Fall W19.XXXA Transition of care from emergency department to self-care [id number] 41086 Z76.89 reviewed ER adal whiteside - medical records dept attempting to get records/xr ay reports [id number] Guillermo Hurd MD Main Office [address] [facility] [address] [place] [address] 05/21/2024 14:22:38 05/21/2024 15:12:00 Impacted cerumen of bilateral ears 2658727071 077442 H61.23 [id number] Fernanda Lang Main Office [address] [facility] [address] [place] [address] 06/02/2024 13:40:22 06/02/2024 14:37:47 Exposure to viral disease 6295424898 16424 Z03.818 Atypical pneumonia 78824 6009 J18.9 If CXR negative will cover with azithro alone, if positive would broaden coverage. Fever 399018777 R50.9 Based on negative COVID/Flu testing and fever in office today will cover for atypical PNA based on current incidence in community. Health Concerns Section Related Observation LastModified by Organization Detai ls LastModified Time None Recorded Concern Status LastModified by Organization Details LastModified Time None Recorded Advance Directives Directive N: HCP Payers Encounter Date Sequence Insurance Name Policy Number Policy Cortés Covered Member ID Cortés Member ID Guarantor Name 08/24/2023 1 [place] Cuauhtemoc Hutchinson [id number] 3 Cuauhtemoc Broard 08/24/2023 2 [place] [id number] Cuauhtemoc Broard [id number] Edwinina Justyn Lepard 08/28/2023 1 [place] Cuauhtemoc Broard [id number] 3 Edwinina Justyn Lepard 08/28/2023 2 [place] [id number] Edwinina Justyn Lepard [id number] Lodina M Lepard 09/10/2023 1 [place] Cuauhtemoc Broard [id number] 3 Edwinina Justyn Lepard 09/10/2023 2 [place] [id number] Cuauhtemoc Broard [id number] 16 Lodina Justyn Lepard 05/21/2024 1 [place] Cuauhtemoc Broard [id number] 3 Edwinina Justyn Lepard 05/21/2024 2 [place] [id number] Edwinina Justyn Broard [id number] 16 Edwinina Justyn Lepard 06/02/2024 1 [place] Cuauhtemoc Broard [id number] 3 Edwinina Justyn Lepard 06/02/2024 2 [place] [id number] Edwinina Justyn Lepard [id number] Edwinina Justyn Hutchinson Notes Date Note Type Note Provider Name and Address Organization Details Recorded Time 08/24/2023 text/html Medicare Annual Wellness VisitReported bypatient.Diet and Nutrition:healthy diet Fracture Risk:no history of fractures Physical Activity:exercises on a regular basis Depression Risk:See phq Concentration and Memory:no decreased concentrating ability; no memory lapses or loss Speech/Motor difficulties:no speech difficulties Vision:no vision problems (following optho.) Activities of Daily Living:able to bathe with limited or no assistance; able to contol urination and bowels; able to dress with limited or no assistance; able to feed self with limited or no assistance; able to get out of chair or bed with limited or no assistance; able to groom with limited or no assistance; able to toilet with limited or no assistance Instrumental Activities of Daily Living:able to do house work with limited or no assistance; able to grocery shop with limited or no assistance; able to manage medications with limited or no assistance; able to manage money with limited or no assistance; able to prepare meals with limited or no assistance; able to use the phone with limited or no assistance Falls Risk Assessment:no frequent falls while walking Home Safety:reviewed sun protection; no unsafe jeramie hazzards; no unsafe stairs; working smoke/CO detectors; use of seatbelts; no fire arms; good lighting in the home Here for wellness visit. Reviewed chronic medications and medical problems. Discussed screening guidelines as well. Jake Gabriel MD [address], [address] 08/24/2023 13:20:34 08/28/2023 text/html The patient pres ented today after noticing swelling on the right side of her clavicle, which a friend pointed out on Sunday. She had not noticed the swelling herself. She reports that the swelling is not tender but mentions that it has been aggravated by extensive touching since its discovery. She denies any recent insect bites, fever, or illnesses. She recalls that the day before the swelling was noticed, she spent approximately 3 and a half hours trimming bushes. The patient is right-hand dominant and regularly lifts weights at the [facility]. She denies experiencing any chest pain. Additionally, she notes that she tends to favor her right side, which sometimes results in neck strain. Fernanda ayala [facility] 09/11/2023 19:00:16 09/10/2023 text/html broke R wrist [place] medical [place] dept attempting to get records/xray reportson dc instructions - R radius fx - wearing temp cast/sling Fernanda Lang null, [facility] 09/30/2023 10:26:13 05/21/2024 text/html She feels like h er left ear is blocked. She denies any pain and does not have any congestion or sinus problems. Also no hearing loss. This is a chronic and intermittent problem for her. Guillermo Hurd MD [address] [address], [place], [address], [facility] 05/21/2024 15:08:09 06/02/2024 text/html Upper Respirator y SymptomsReported bypatient.Location:[facility] Quality:dry cough;bark-like cough Severity:moderate Onset/Timing:actual date: (05/26/2024) Context:no foreign travel; non-smoker;sick contact Associated Symptoms:no fever; no vomiting; no diarrhea; no nauseaNotes:Recently returned from visiting [place] in [place] and they were ill. Fernandarobb ayala [facility] 06/10/2024 12:46:02 OBGyn Episode No OBEpisode recorded.
--- OUTSIDE RECORDS SUMMARY | 2024-07-15 09:30 | XMS_ITS ---
Author Organization [facility] Address [address] [address] Care Team Providers Care Clothing Man Name Role Phone DR JAKE GABRIEL Primary Care Provider Unavail Rylee Castañeda Unavailable [phone] Allergies No Known Allergies REASON FOR VISIT [...] 08/07/2023 Encounters Encounter Location Date Provider Diagnosis [facility] [address] [address] 08/07/2023 Rylee Huizar Encounter for gynecological examination [...] Reason: Provider Name:Rylee dotson, 08/13/2024 08:20:00 AM, [address] [place] [address], [facility] [address], [place], [address], Progress Notes * RAMON MACDOB:1950 (73 yo F)Acc No.[id number]:08/07/2023 PROGRESS NOTES Patient:?RAMON MAC Appointment Provider:?Rylee dotson M.D. :1950???Age:73 Y???Sex:Female D ate:08/07/2023 Address:[address] [place], [place] [phone] Pcp:DR JAKE GABRIEL Subjective: * Chief Complaints: [...] stool.?no?genitourinary complaints.?no?skin complaints.? * Medical History:? * Repatcher History:?/ Para?2/2.?Sexual activity?not currently sexually active.?Last Pap Smear:?04/30/19 NIL, NEG HPV, 05/28/2015 , neg, NEG HRHPV.?Mammogram:?09/2022 [facility], 09/27/21 < 50% density, 09/23/20 < 50% density, 08/05/18 50-75% density, 08/01/2017 normal, 06/30/16 50-75% density, 06/29/2015 < 50% density, normal, 04/22/14, normal.?LMP and menses?[place] 1999.? Control:?None.?Menopause: ?Began at age: ?49 ???Colonoscopy?2013.?Bone [...] discharge, no drainage, no masses palpable bilaterally, nontender.?SAP TREASURY CONSULTANT exam: ?EXTERNAL GENITALIA:?Normal female. No lesions, erythema [...] Huizar M.D. Date:?08/07/2023 Generated for Pino tavarez/Kali/Swati on:?07/15/2024 09:30 AM EDT History and Physical Notes * HPI (History [...] no drainage, no masses palpable bilaterally, nontender SAP TREASURY CONSULTANT exam CERVIX: No cervical motion tendernes s, discharge or lesions VAGINA: atrophic changes EXTERNAL GENITALIA: Normal female. No le sions, erythema or discharge UTERUS: normal size, shape a nd consistency, normal mobility, nontender ADNEXA: no masses or tendern ess bilaterally
--- OUTSIDE RECORDS SUMMARY | 2024-07-15 09:30 | XMS_ITS | Patient Health Record ---
Author Organization [facility] Address [address] [facility] [address] [place] [address] Care Team Providers Care Casting Director Name Role Phone DR JAKE GABRIEL Primary Care Provider Unavail able Rylee Huizar Unavailable [phone] Allergies No Known Allergies Reason For Referral [...] Status Risk Notes Problem Postmenopausal atrophic vaginitis (78357799) Postmenopausal atrophic vaginitis (N95.2) Active confirmed Problem Age-related osteoporosis (813054307) Age-related osteoporosis without current pathological fracture (M81.0) Active confirmed Problem Depressive disorder (87231508) Depressive disorder, not elsewhere classified (311) Active confirmed Major Problem Menopausal symptom (08463847) Symptomatic menopausal or female climacteric states (627.2) Active confirmed Major Problem Muscle pain (26518095) Unspecified myalgia and myositis (729.1) Active confirmed Major Problem Osteoporosis (93698048) Unspecified osteoporosis (733.00) Active confirmed Diag Problem Disorder of bone and articular cartilage (disorder) (287625265) Disorder of bone and cartilage, unspecified (733.90) Active confirmed Diag Problem Gynecological examination normal (474989910954176) Routine gynecological examination (V72.31) Active confirmed Major Problem Screening for malignant neoplasm of colon (521458756) Special screening for malignant neoplasms, colon (V76.51) Active confirmed Major Vital Signs Temperature 97.3 degrees Fahrenheit 08/07/2023 Blood pressure diastolic 86 mm Hg 08/07/2023 Height 62.50 in 08/07/2023 Blood pressure systolic 128 mm Hg 08/07/2023 Weight 128 lbs 08/07/2023 BMI 23.04 kg/m2 08/07/2023 Encounters Encounter Location Date Provider Diagnosis [facility] [address] [place] [address] [address] 08/07/2023 Rylee Huizar Encounter for gynecological examination (general) (routine) with abnormal findings Z01.411 ; Encounter for screening mammogram for malignant neoplasm of breast Z12.31 ; Age-related osteoporosis without current pathological fracture M81.0 and Postmenopausal atrophic vaginitis N95.[address] [address] 08/07/2023 Rylee Huizar [address] [address] 08/24/2023 Rylee Huizar Assessments Encounter Date Diagnosis [...] Name:Rylee Torsten dotson, 08/13/2024 08:20:00 AM, [address] [facility], [address], [place], [address], Insurance Providers Payer Name Payer Address Payer Phone Subscriber Number Group Number Insured Name Patient Relationship to Insured Coverage Start Date Coverage End Date MEDICARE [address] [facility] [place] [id number] [phone] [id number] RAMON MAC Self - patient is the insured MEDEX [address] [place] [address] [id number] RAMON MAC Self - patient is [...]
== END 2024-07-15 09:56 | disposition home or self-care (01) ==
LOC: HO.RHES 09:00
PROVIDERS: PCP Family Medicine; Visit Provider Internal Medicine Rheumatology
DX: M19.011 Primary osteoarthritis, right shoulder (principal); M18.0 Bilateral primary osteoarthritis of first carpometacarpal joints; M70.61 Trochanteric bursitis, right hip; M70.62 Trochanteric bursitis, left hip
CPT/HCPCS: 99214; G2211

== ENCOUNTER → 2024-07-15 08:59 | Outpatient (BNVA) | payer MEDICARE, SELFPAY | PROVIDERS: PCP Family Medicine; Visit Provider Internal Medicine Rheumatology | DX: M19.011 Primary osteoarthritis, right shoulder (principal); M18.0 Bilateral primary osteoarthritis of first carpometacarpal joints; M70.61 Trochanteric bursitis, right hip; M70.62 Trochanteric bursitis, left hip | CPT/HCPCS: 99212 ==

== ENCOUNTER 2024-11-26 09:53 | Outpatient (AMB) | payer MEDICARE, SELFPAY ==
--- OUTSIDE RECORDS SUMMARY | 2024-08-13 04:20 | XMS_ITS ---
Author Organization [facility] Address [address] [facility] [address] [place] [address] Care Team Providers Care Wetlands Conservation Laborer Name Role Phone DR JAKE GABRIEL Primary Care Provider Unavail Rylee Castañeda Unavailable [phone] REASON FOR VISIT LR MEDICARE PE Encounters Encounter Location Date Provider Diagnosis [facility] [address] [place] [address] 08/13/2024 Rylee Huizar Plan Of Treatment Next Appt Details Provider Name:Rylee dotson, 02/17/2025 08:40:00 AM, [address] [facility], [address], [place], [address], Progress Notes * LIDIAMIRZA RAMONDOB:1950 (74 yo F)Acc No.[id number]:08/13/2024 PROGRESS NOTES Patient: RAMON MAZA Appointment Provider: Vannesa Huizar M.D. :1950 A ge:74 Y S ex:Female Date:08/13/2024 Address:[address] [place], [place] [phone] Pcp:DR JAKE GABRIEL Subjective: * Chief Complaints: * 1 . LR MEDICARE PE. * Medical History: Objective: * Vitals: Assessment: Plan: * Treatment: * Images: Billing Information: * Visit Code: * Procedure Codes: * Electronic signature of Debora Huizar MD on 11/26/2024 at 11:06 AM EDT Sign off status: Pending * Appointment Provider: Vannesa Huizar M.D. Date: 0 08/13/2024 Generated for Pino tavarez/Kali/Swati on: 0 11/26/2024 11:06 AM EDT
--- OUTSIDE RECORDS SUMMARY | 2024-11-21 09:21 | XMS_ITS | Encounter Summary ---
Author Organization [facility] Address [address] [place] [address] Care Team Providers Care Pilot Plant Supervisor Name Role Phone Ritchie Cuadra MD Primary Care Provider [phone] Reason for Referral * Imaging (Routine) - Closed Specialty Diagnoses / Procedures Referred By Rome moran Referred To Contact Radiology Diagnoses Encounter for screening mammogram for malignant neoplasm of breast Procedures MG Mammo Digital Screening w Nataly Martinez MD Phone: tel: fax: [facility] Referral ID Status Reason Start Date Expiration Date Visits Re quested Visits Authorized [id number] Closed 06/30/2024 06/30/2025 1 1 Reason for Visit * Imaging (Routine) - Closed Specialty Diagnoses / Procedures Referred By Rome moran Referred To Contact Radiology Diagnoses Encounter for screening mammogram for malignant neoplasm of breast Procedures MG Mammo Digital Screening w Nataly Martinez MD Phone: tel: fax: [facility] Referral ID Status Reason Start Date Expiration Date Visits Re quested Visits Authorized [id number] Closed 06/30/2024 06/30/2025 1 1 Encounter Details Date Type Department Care Team (Latest Contact Info) Description 11/21/2024 9:21 AM EDT - 11/21/2024 11:59 PM EDT Hospital [facility] [address] [address] Encounter for screening mammogram for malignant neoplasm of breast Discharge Disposition: Home or Self Care Social History Tobacco Use Types Packs/Day Years Used Date Smoking Tobacco: Never Assessed Comments No Sex and Gender Information Value Date Recorded Sex Assigned at Female 06/30/2024 2:27 PM EDT Legal Sex Female 10:25 PM EST Gender Identity Female 06/30/2024 2:27 PM EDT Sexual Orientation Choose not to disclose 2024 2:27 PM EDT documented as of this encounter Last Filed Vital Signs Vital Sign Reading Time Taken Comments Blood Pressure - - Pulse - - Temperature - - Respiratory Rate - - Oxygen Saturation - - Inhaled Oxygen Concentration - - Weight 57.6 kg (127 lb) 11/21/2024 9:30 AM EDT Height 157.5 cm (5' 2 ) 11/21/2024 9:30 AM EDT Body Mass Index 23.23 11/21/2024 9:30 AM EDT documented in this encounter Medications at Time of Discharge calcium carbonate (OS-ALEJANDRO) 1250 mg (500 mg elemental calcium) chewable tablet Chew 1 tablet (1,250 mg total). chlorhexidine (PERIDEX) 0.12 % solution 08/27/2024 cholecalciferol (VITAMIN D-3) 25 mcg (1,000 unit) tablet Take 1 tablet (1,000 Units total) by mouth 1 (one) time each day. diphenhydrAMINE (BENADRYL) 25 mg tablet Take 1 tablet (25 mg total) by mouth at bedtime as needed for sleep. DULoxetine (CYMBALTA) [address] capsule Take 1 capsule (60 mg total) by mouth 1 (one) time each day. 06/28/2024 fluticasone (VERAMYST) 27.5 mcg/actuation nasal spray Administer 2 sprays into each nostril 1 (one) time each day. gabapentin (NEURONTIN) 600 mg tablet Take 1 tablet (600 mg total) by mouth at bedtime. melatonin 10 mg capsule Take by mouth. simvastatin (ZOCOR) 40 mg tablet Take 1 tablet (40 mg total) by mouth at bedtime. zoledronic acid/mannitol-wa ter (RECLAST IV) Infuse into a venous catheter. documented as of this encounter Discharge Disposition Disposition Code Departure Means Destination Home or Self Care documented in this encounter Plan of Treatment Upcoming Encounters Date Type Department Care Team (Late st Contact Info) Description 12/10/2024 10:30 AM EDT Appointment [facility] Endoscopy [address] [place] [phone] Rosalia Franco MD [address] [place] [phone] documented as of this encounter Procedures Procedure Name Priority Date/Time Associated Diagnosis Comments MG MAMMO DIGITAL SCREENING W EFRA BILAT Routine 11/21/2024 9:38 AM EDT Encounter for screening mammogram for malignant neoplasm of breast documented in this encounter Results * MG Mammo Digital Screening w Efra bilat (11/21/2024 9:38 AM EDT) Anatomical Region Laterality Modality Breast Bilateral Mammography 11/21/2024 9:43 AM EDT Impressions 11/21/2024 9:46 AM EDT No mammographic evidence of malignancy. A negative mammogram in the presence of a clinically suspicious palpable abnormality does not preclude the possibility of malignancy or alter the indications for biopsy. PQRI CPT II 3342F Code 00724, 06062 PQRI 225 CPT II 7025F TISSUE DENSITY: There are scattered areas of fibroglandular density. (BI-RADS category B) IMPRESSION: Benign. BI-RADS CATEGORY: 2 - BENIGN RECOMMENDATION: Screening bilateral mammogram is recommended in 1 year. Mammo Location: [facility], [address] [place] [address] -------- FINAL REPORT -------- Dictated By: tAtila Silverio Dictated Date: 11/21/2024 09:43 ET Assigned Physician: Attila Silverio Reviewed and Electronically Signed By: Attila Silverio Signed Date: 11/21/2024 09:46 ET Workstation ID: [id number] Transcribed By: Self Edit Transcribed Date: 11/21/2024 09:43 ET Narrative 11/21/2024 9:46 AM EDT CLINICAL: The patient is a 74 years Female presenting for routine screening mammography. COMPARISON: Most recently 11/16/2023 and most remotely 06/30/2016. TECHNIQUE: Full-field digital mammography of the breasts bilaterally consisting of tomosynthesis in MLO and CC projection is performed in the [employer] 2000-D unit. Computer aided detection utilizing the iCAD system was utilized. FINDINGS: The breasts are again seen to be composed of a combination of fatty and fibroglandular elements. Bilateral benign punctate calcifications, as well as a coarse calcification anteriorly in the left breast, are unchanged. There is no suspicious cluster of microcalcifications, mass, or area of architectural distortion. There is no skin thickening or nipple retraction. Procedure Note Attila Silverio MD - 11/21/2024 CLINICAL: The patient is a 74 years Female presenting for routinescreening mammography. COMPARISON: Most recently 11/16/2023 and most remotely 06/30/2016. TECHNIQUE: Full-field digital mammography of the breasts bilaterallyconsisting of tomosynthesis in MLO and CC projection is performed in thetic [employer]he 2000-D unit. Computer aided detection utilizing the iCADsystem was utilized. FINDINGS: The breasts are again seen to be composed of a combination offatty and fibroglandular elements. Bilateral benign punctatecalcifications, as well as a coarse calcification anteriorly in the leftbreast, are unchanged. There is no suspicious cluster ofmicrocalcifications, mass, or area of architectural distortion. There isno skin thickening or nipple retraction. IMPRESSION: No mammographic evidence of malignancy. A negative mammogram in the presence of a clinically suspicious palpableabnormality does not preclude the possibility of malignancy or alter theindications for biopsy. PQRI CPT II 3342F Code 99994, 34600 PQRI 225 CPT II 7025F TISSUE DENSITY: There are scattered areas of fibroglandular density.(BI-RADS category B) IMPRESSION: Benign. BI-RADS CATEGORY: 2 - BENIGN RECOMMENDATION: Screening bilateral mammogram is recommended in 1 year. Mammo Location: [facility], [facility], [address] [place] [address] -------- FINAL REPORT -------- Dictated By: Attila Silverio Dictated Date: 11/21/2024 09:43 ET Assigned Physician: Attila Silverio Reviewed and Electronically Signed By: Attila Silverio Signed Date: 11/21/2024 09:46 ET Workstation ID: [id number] Transcribed By: Self Edit Transcribed Date: 11/21/2024 09:43 ET us Nataly Esteban MD IMG BI PROCEDURES Fi nal Result documented in this encounter Visit Diagnoses Diagnosis Encounter for screening mammogram for malignant neoplasm of breast documented in this encounter Care Teams Pilot Plant Supervisor Relationship Specialty Start Date End Date Ritchie Cuadra MD [address] [address] PCP - General Family Medicine 06/30/24 documented as of this encounter
[2024-11-26 10:01] VITALS: BP 100/80; PULSE 71; O2SAT 98; BMI 23.2
--- NOTE | 2024-11-26 10:01 | A.OFFVIS_ITS ---
Vital Signs 11/26/24 10:01 Height 5 ft 3 in Weight 130 lb 11.746 oz BMI 23.2 BP 100/80 Blood Pressure Location Lt brachial Position Sitting Pulse 71 Pulse Source Pulse Oximeter Pulse Oximetry (%) 98 Oxygen Delivery Method Room Air Intake Visit Reasons: 3 month f/u Intake Note: Patient presents today for a follow up for trochanteric bursitis. Accompanied by: Self / Same As Patient Allergies No Known Allergies Allergy (Verified 11/26/24 10:02) HPI HPI 3 month f/u: Details: Modifying her movements in weight class has helped reduce shoulder pain. She continues to have intermittent shoulder pain but it is tolerable. CMC splints are helpful. She had a 2 week trip in [place] where she did not experience hand pain. Going back to chores with cooking and cleaning has contributed to some pain but it is much more manageable. Left hip pain woke her up from sleep this morning. It started after her weight class and walking a dog. She has not self medicated. She has been active in the last 2 days with cooking. [facility] Medical History Myofascial pain Fibromyalgia Surgical History History of carpal tunnel surgery H/O right wrist surgery Family History Father Heart attack Mother Advanced dementia Social History Alcohol intake: current Alcohol intake frequency: holidays/special occasions only Patient Tobacco Use Status: Never used Tobacco Physical Exam Vital Signs: Last Vital Signs Pulse 71 11/26/24 10:01 BP 100/80 11/26/24 10:01 Pulse Ox 98 11/26/24 10:01 Oxygen Delivery Method Room Air 11/26/24 10:01 BMI result Body Mass Index 23.2 Const Other: General: Comfortable Skin: No lesions seen MSK: She has right sternoclavicular sternoclavicular joint hypertrophy without effusion. There is no warmth or discoloration. Nontender bilateral shoulders. Normal range of motion of bilateral shoulders. Slight tenderness to palpate left trochanteric bursa region and ASIS. Assessment & Plan Assessment & Plan (1) Osteoarthritis of right glenohumeral joint: Comment: With radiating pain to right clavicle. Intermittent pain. Tolerable. Improved with modifying exercises at her weight cast. Code(s): M19.011 - Primary osteoarthritis, right shoulder Category: Medical Plan: Monitor clinically (2) Osteoarthritis of carpometacarpal (CMC) joint of both thumbs: Comment: Improved with splinting. Code(s): M18.0 - Bilateral primary osteoarthritis of first carpometacarpal joints Category: Medical Plan: Continue to wear CMC splints Return to clinic in 6 months or sooner if needed (3) Greater trochanteric bursitis of both hips: Comment: Left acute onset pain in setting of restarting exercise program. She also likely has inguinal strain contributing to left hip pain. Code(s): M70.61 - Trochanteric bursitis, right hip; M70.62 - Trochanteric bursitis, left hip Category: Medical Plan: Encouraged her to do home exercise program daily learned from PT in the past She will take ibuprofen 600 mg q.8 hourly PRN pain Return to clinic in 6 months or sooner if needed Coding Level of Care Code Est Pt Level 3 (38356) Complex EM visit Add On G2211 Diagnoses Osteoarthritis of right glenohumeral joint M19.011 Osteoarthritis of carpometacarpal (CMC) joint of both thumbs M18.0 Greater trochanteric bursitis of both hips M70.61; M70.62
--- OUTSIDE RECORDS SUMMARY | 2024-11-26 11:06 | XMS_ITS | Patient Health Record ---
Author Organization [facility] Address [address] [place] [address] Care Team Providers Care Sensory Scientist Name Role Phone DR JAKE GABRIEL Primary Care Provider Unavail able Rylee Huizar Unavailable [phone] Allergies No Known Allergies Reason For Referral No Information Medications Medication SIG (Take, Route, Frequency, Duration) Notes Start Date End Date Status Gabapentin 600 MG Oral; Duration: 90 Active DULoxetine HCl 60 MG Oral; Duration: 90 Active Simvastatin 40 MG Oral; Duration: 90 Active Vitamin D 25 MCG (1000 UT) 1 tablet Orally Every other day Active Melatonin 10 MG as directed Orally Active Reclast 5 MG/100ML as directed Intravenous Done 08/06/23 Active Calcium Chews Active Problems Problem Type SNOMED Code ICD Code Onset Dates Problem Status W/U Status Risk Notes Problem Postmenopausal atrophic vaginitis (32992326) Postmenopausal atrophic vaginitis (N95.2) Active confirmed Problem Age-related osteoporosis (605967585) Age-related osteoporosis without current pathological fracture (M81.0) Active confirmed Problem Depressive disorder (27765211) Depressive disorder, not elsewhere classified (311) Active confirmed Major Problem Menopausal symptom (17488460) Symptomatic menopausal or female climacteric states (627.2) Active confirmed Major Problem Muscle pain (38557333) Unspecified myalgia and myositis (729.1) Active confirmed Major Problem Osteoporosis (15454043) Unspecified osteoporosis (733.00) Active confirmed Diag Problem Disorder of bone and articular cartilage (disorder) (136424078) Disorder of bone and cartilage, unspecified (733.90) Active confirmed Diag Problem Gynecological examination normal (260891820073725) Routine gynecological examination (V72.31) Active confirmed Major Problem Screening for malignant neoplasm of colon (539402095) Special screening for malignant neoplasms, colon (V76.51) Active confirmed Major Encounters Encounter Location Date Provider Diagnosis [facility] [address] [place] [address] 10/08/2024 Rylee Huizar Encounter for screening for osteoporosis Z13.820 and Age-related osteoporosis without current pathological fracture M81.0 Assessments Encounter Date Diagnosis (ICD Code) Assessment Notes Treatment Notes Treatment Clinical Notes Section Notes 10/08/2024 Encounter for screening for osteoporosis (ICD-10 - Z13.820) 10/08/2024 Age-related osteoporosis without current pathological fracture (ICD-10 - M81.0) Plan Of Treatment Pending Test Test Name Order Date MAMMOGRAM, SCREENING 05/28/2015 MAMMOGRAM, SCREENING 04/30/2019 MAMMOGRAM, SCREENING 05/12/2020 MAMMOGRAM, SCREENING 05/18/2021 MAMMOGRAM, SCREENING 07/31/2022 Urinalysis 05/12/2020 Urinalysis 02/26/2018 Urinalysis 04/30/2019 1,25OH VITAMIN D 07/13/2016 COMPREHENSIVE METABOLIC PANEL 07/13/2016 N-TELOPEPTIDE CROSS 07/13/2016 PTH, INTACT 07/13/2016 TSH 07/13/2016 BONE DENSITY 10/08/2024 BONE DENSITY 05/12/2020 BONE DENSITY 07/31/2022 MM Digital Mammo Screening 07/31/2022 MM Digital Mammo Screening 08/07/2023 MM Digital Mammo Screening 04/30/2019 MM Digital Mammo Screening 05/12/2020 MM Digital Mammo Screening 05/18/2021 Next Appt Details Provider Name:Rylee dotson, 02/17/2025 08:40:00 AM, [address], [address], [place], [address], Insurance Providers Payer Name Payer Address Payer Phone Subscriber Number Group Number Insured Name Patient Relationship to Insured Coverage Start Date Coverage End Date MEDICARE [address] DERRICK ANGEL [id number] RAMON MAC Self - patient is the insured MEDEX [address] [place] [address] [id number] RAMON MAC Self - patient is [...]
--- OUTSIDE RECORDS SUMMARY | 2024-11-26 11:06 | XMS_ITS | Continuity of Care Document ---
Author Organization [facility] [address] [place] [address] Phone [phone] Care Team Providers Care Roll Mechanic Name Role Phone Ritchie Cuadra MD Care Team Information Receive r [phone] Rylee Huizar M.D. Care Team Information Rec eiver [phone] Problems Active Problems Provider Date Dyslipidemia Nataly Esteban M.D. Ons et: 06/07/2022 Osteoporosis Nataly Esteban M.D. Ons et: 06/07/2022 Fibromyalgia Nataly Esteban M.D. Ons et: 06/07/2022 Benign paroxysmal positional vertigo Nataly Wood M.D. Onset: 06/07/2022 Anxiety Nataly Esteban M.D. 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 Vital Signs Date Vital Result Comment 11/19/2024 8:52am BP Systolic 112 mmHg BP Diastolic 80 mmHg Heart Rate 85 /min Height 63 inches 5'3 Weight 129.25 lb BMI (Body Mass Index) 22.9 kg/m2 Results Test Acquired Date Facility Test [...] Hematology Comments: TNP Comprehensive Metabolic Panl 06/09/2022 [facility] Glucose 79 mg/dL (70-99) [...] 3M2 3 Complete Abc With Diff 06/09/2022 [facility] WBC 4.9 K/MM3 (4.0-11. [...] ) Lymph # 1.2 K/MM3 (0.8-3.1 ) Hays# 0.4 K/MM3 (0.4-0.9 ) Eo # 0.1 K/MM3 (0.0-0.4 ) Baso # 0.0 K/MM3 (0.0-0.1 ) Abs. Imm Gran 0.0 K/MM3 Neut 65.6 % (44-76) Lymph 23.7 % (15-43) Monocyte 8.9 % (4.5-10. 5) Eo 1.0 % (0-6) Baso 0.6 % (0-2) Imm Gran 0.2 % 25Oh Vitamin D 06/09/2022 [facility] 25Oh Vitamin D 32.6 NG/ML (20-50) N-Telopeptide Cross Links, Urine 06/09/2022 [facility] Cross Linked N-Telopeptides 222 4 Creat, Urine 73.2 5 N-Telopeptide/C r eat Ratio 34 6 NTX Interpretaion Comment 7 1 Vitamin D deficiency has been defined by the Muse of Medicine and an Endocrine Society practice guideline as a level of serum 25-OH vitamin D less than 20 ng/mL (1,2). The Endocrine Society went on to further define vitamin D insufficiency as a level between 21 and 29 ng/mL (2). 1. IOM (Muse of Medicine). 2010. Dietary reference intakes for [...] measured NTx value is <or=38 nM BCE/mM BUSINESS INSIGHT AND ANALYTICS MANAGER, or NTx has decreased >or=30% from baseline.[1] 3. Patients with Paget's Disease of Bone: The probability that treatment is effective after one month is increased when the measured NTx value is within the reference range, or NTx has decreased >or=30% from baseline.[2] 1. Nilson CH, Lexie NH, [...] Estab. Unit: nmol BCE Test performed at [facility], [address] [place] [address] 5 Reference range: Not Estab. Unit: mg/dL [facility], [address], [place] [address] 6 Reference range: 0 t o 89 [...] value is <or EQ 38 nM BCE/mM BUSINESS INSIGHT AND ANALYTICS MANAGER, or NTx has decreased >or EQ 30% [...] 102:29-37,1997. (1):M757, 1996. 2. Bone H, Ezekiel Mattson, et al. J Bone Min Res.11(1):M757,1996 [place] [address] Medical Devices Description No Information Available Encounters Type Date Location Provider Dx Diagnosis Office Visit 11/19/2024 8:45a Main Office Nataly Esteban M.D. M81.0 Age-related osteoporosis w/o current pathological fracture Z87.310 Personal history of (healed) osteoporosis fracture Assessments Date Code Description Provider 11/19/2024 M81.0 Age-related oste oporosis without current pathological fracture Nataly Esteban M.D. 11/19/2024 Z87.310 Personal history of (healed) osteoporosis fracture Nataly Esteban M.D. Plan of Treatment Future Appointment(s):* 05/22/2025 8:30 am - Nataly Esteban M.D. at Main Office 06/07/2022 - Nataly Esteban M.D.* M81.0 Age-related osteoporosis without current pathological fracture* New Xrays:* Dexa Bone Density Study Axial Skeleton, Ordered: 06/07/22 Functional Status Description No Information Available Mental Status Description No Information Available Referrals Description No Information Available
--- OUTSIDE RECORDS SUMMARY | 2024-11-26 11:06 | XMS_ITS | Clinical Summary ---
Author Organization [facility] Address [address] [place] [address] Phone Care Team Providers Care Timber Deadener Name Role Phone Ritchie Cuadra MD Primary Care Provider [phone] Allergies No known active allergies Medications gabapentin (NEURONTIN) 600 mg tablet Take 1 tablet (600 mg total) by mouth at bedtime. Active simvastatin (ZOCOR) 40 mg tablet Take 1 tablet (40 mg total) by mouth at bedtime. Active DULoxetine (CYMBALTA) [address] capsule Take 1 capsule (60 mg total) by mouth 1 (one) time each day. 5 Active chlorhexidine (PERIDEX) 0.12 % solution 5 Active calcium carbonate (OS-ALEJANDRO) 1250 mg (500 mg elemental calcium) chewable tablet Chew 1 tablet (1,250 mg total). Active fluticasone (VERAMYST) 27.5 mcg/actuation nasal spray Administer 2 sprays into each nostril 1 (one) time each day. Active melatonin 10 mg capsule Take by mouth. Activ e zoledronic acid/mannitol-w ater (RECLAST IV) Infuse into a venous catheter. Active diphenhydrAMINE (BENADRYL) 25 mg tablet Take 1 tablet (25 mg total) by mouth at bedtime as needed for sleep. Active cholecalciferol (VITAMIN D-3) 25 mcg (1,000 unit) tablet Take 1 tablet (1,000 Units total) by mouth 1 (one) time each day. Active polyethylene glycol (Golytely) 236-22.74-6.74 -5.86 gram solution Take 4L by mouth once for one dose. May substitue any PEG. Starting at 2PM the day before your procedure drink 1 8oz glasses at your own pace until you complete half of the gallon. Finish 2nd half of the gallon at 8PM. 4000 mL 5 Active polyethylene glycol (MIRALAX) 17 gram packet Empty 8 ounces of Miralax into 128 ounces (1 gallon) of Gatorade, mix well. Starting at 4pm the night before procedure drink as tolerated until half of the total amount is completed. Give 4 hours break, then finish the remainder 227 g 5 Active Encounters Date Type Department Care Team Description 11/21/2024 9:21 AM EDT - 11/21/2024 11:59 PM EDT [facility] [address] [phone] Encounter for screening mammogram for malignant neoplasm of breast Discharge Disposition: Home or Self Care 10/08/2024 9:00 AM EDT - 10/08/2024 11:59 PM EDT Hospital Encounter [facility] Bone Density [address] [place] [phone] Age-related osteoporosis without current pathological fracture Discharge Disposition: Home or Self Care 08/27/2024 Telephone Gastroenterology - [address] [facility] [address] [phone] Sumanth Norton MD from Last 3 Months Family History Medical History Relation Name Comments Breast cancer Half-Sister PATERNAL Relation Name Status Comments Half-Sister Alive Social History Tobacco Use Types Packs/Day Years Used Date Smoking Tobacco: Never Assessed Comments No Sex and Gender Information Value Date Recorded Sex Assigned at Female 06/30/2024 2:27 PM EDT Legal Sex Female 10:25 PM EST Gender Identity Female 06/30/2024 2:27 PM EDT Sexual Orientation Choose not to disclose 2024 2:27 PM EDT Obstetrics History Para Term AB IAB SAB Ectopic Multiple Livin g Live Births 2 Last Filed Vital Signs Vital Sign Reading Time Taken Comments Blood Pressure - - Pulse - - Temperature - - Respiratory Rate - - Oxygen Saturation - - Inhaled Oxygen Concentration - - Weight 57.6 kg (127 lb) 11/21/2024 9:30 AM EDT Height 157.5 cm (5' 2 ) 11/21/2024 9:30 AM EDT Body Mass Index 23.23 11/21/2024 9:30 AM EDT Plan of Treatment Upcoming Encounters Date Type Department Care Team (Late st Contact Info) Description 12/10/2024 10:30 AM EDT Appointment [facility] Endoscopy [address] [place] [address] Rosalia Franco MD [address] [place] [phone] Health Maintenance Due Date Last Done Comments Cholesterol Screening (Lipid Panel) 02/26/2022 Colorectal Cancer Screening: Colonoscopy 02/26/2022 Falls Risk Assessment 02/26/2022 Hepatitis C Screening 02/26/2022 Medicare Annual Wellness Visit 02/26/2022 Social Influencers of Health Screening 02/26/2022 Depression Screening 03/26/2024 COVID-19 Vaccine ( season) 2024 02/07/2021, 05/03/2020, 03/30/2020 Influenza Vaccine (#1) 2024 , 01/29/2023, 12/19/2021, Additional history exists RSV Immunization Adult Patients (1 - 1-dose 75+ series) 2025 Breast Cancer Screening 11/21/2026 11/22/19 25, 11/16/2023, 11/16/2023, Additional history exists DTaP,Tdap,and Td Vaccines (3 - Td or Tdap) 12/06/2027 12/05/2017, 10/24/2007 Osteoporosis Screening (Bone Density Screening) 10/08/2034 10/08/2024, 10/04/2022, 10/03/2022, Additional history exists Pneumococcal Vaccine: 50+ Years Completed 08/16/2017, 04/19/2016, 01/06/2010 Zoster Vaccines Completed 06/15/2021, 12/25, 03/11/2014 Hepatitis A Vaccines Aged Out 12/06/2023, 05/03/2023, 04/04/2023 No longer eligible based on patient's age to complete this topic Hepatitis B Vaccines Completed 12/06/2023, 05/03/2023, 04/04/2023 HIB Vaccines Aged Out No longer eligi [...] screening mammogram for malignant neoplasm of breast BD BONE DENSITY DXA AXIAL SKELETON Routine 10/08/2024 9:25 AM EDT Age-related osteoporosis without current pathological fracture from Last 3 Months Results * MG Mammo Digital Screening w [...] for biopsy. PQRI CPT II 3342F Code 64348, 91953 PQRI 225 CPT II 7025F TISSUE DENSITY: There are scattered areas of fibroglandular density. (BI-RADS category B) IMPRESSION: Benign. BI-RADS CATEGORY: 2 - BENIGN RECOMMENDATION: Screening bilateral mammogram is recommended in 1 year. Mammo Location: [facility], [address] [place] [address] -------- FINAL REPORT -------- Dictated By: Attila Silverio Dictated Date: 11/21/2024 09:43 ET Assigned Physician: Attila Silverio Reviewed and Electronically Signed By: Attila Silverio Signed Date: 11/21/2024 09:46 ET Workstation ID: [id number] Transcribed By: Self Edit Transcribed Date: 11/21/2024 09:43 ET Narrative 11/21/2024 9:46 AM EDT CLINICAL: The patient is a 74 years Female presenting for routine screening mammography. COMPARISON: Most recently 11/16/2023 and most remotely 06/30/2016. TECHNIQUE: Full-field digital mammography of the breasts bilaterally consisting of tomosynthesis in MLO and CC projection is performed in the [employer] 2000-D unit. Computer aided detection utilizing the [...] MLO and CC projection is performed in the[employer] 2000-D unit. Computer aided detection utilizing the [...] for biopsy. PQRI CPT II 3342F Code 98872, 12600 PQRI 225 CPT II 7025F TISSUE DENSITY: There are scattered areas of fibroglandular density.(BI-RADS category B) IMPRESSION: Benign. BI-RADS CATEGORY: 2 - BENIGN RECOMMENDATION: Screening bilateral mammogram is recommended in 1 year. Mammo Location: [facility], [address] [place] [phone] -------- FINAL REPORT -------- Dictated By: Attila Silverio Dictated Date: 11/21/2024 09:43 ET Assigned Physician: Attila Silverio Reviewed and Electronically Signed By: Attila Silverio Signed Date: 11/21/2024 09:46 ET Workstation ID: [id number] Transcribed By: Self Edit Transcribed Date: 11/21/2024 09:43 ET us Nataly Esteban MD IMG BI PROCEDURES Fi nal Result * BD Bone Density DXA Axial Skeleton (10/08/2024 9:25 AM EDT) Anatomical Region Laterality Modality Wrist, Hip, L-spine Bone Densito metry 10/08/2024 9:38 AM EDT Impressions 10/08/2024 9:40 AM EDT 1. Osteoporosis. There has been a decrease of 2.3% in bone mineral density in the lumbar spine since the prior examination of 10/03/2022. There has been a decrease of 0.4% in bone mineral density in the right femur and a decrease of 2.1% in bone mineral density in the left femur. 2. FRAX analysis yields a 10-year probability of major osteoporotic fracture of 17.4% and a 10-year probability of hip fracture of 3.6%. Code 88071 -------- FINAL REPORT -------- Dictated By: Attila Silverio Dictated Date: 10/08/2024 09:38 ET Assigned Physician: Attila Silverio Reviewed and Electronically Signed By: Attila Silverio Signed Date: 10/08/2024 09:40 ET Workstation ID: [id number] Transcribed By: Self Edit Transcribed Date: 10/08/2024 09:38 ET Narrative 10/08/2024 9:40 AM EDT HISTORY: The patient is a 74-year-old postmenopausal female with clinical concern for metabolic bone disease. FINDINGS: Dual energy x-ray absorptiometry of the lumbar spine and femurs is performed. The mean bone mineral density at L1-2 is 0.846 gm/cm2 which is 73% of that of young normals and 91% of that of age matched controls. This yields a T-score of -2.7 and a Z-score of -0.7 which is diagnostic of osteoporosis. The mean bone mineral density of the femurs bilaterally is 0.829 gm/cm2 which is 82% of that of young normals and 107% of that of age matched controls. This yields a T-score of -1.4 and a Z-score of 0.4 which is diagnostic of osteopenia. Procedure Note Attila Silverio MD - 10/08/2024 HISTORY: The patient is a 74-year-old postmenopausal female with clinicalconcern for metabolic bone disease. FINDINGS: Dual energy x-ray absorptiometry of the lumbar spine and femursis performed. The mean bone mineral density at L1-2 is 0.846 gm/cm2 whichis 73% of that of young normals and 91% of that of age matched controls.This yields a T-score of -2.7 and a Z-score of -0.7 which is diagnostic ofosteoporosis. The mean bone mineral density of the femurs bilaterally is 0.829 gm/dm8povcw is 82% of that of young normals and 107% of that of age matchedcontrols. This yields a T-score of -1.4 and a Z-score of 0.4 which isdiagnostic of osteopenia. IMPRESSION: 1. Osteoporosis. There has been a decrease of 2.3% in bone mineraldensity in the lumbar spine since the prior examination of 10/03/2022.There has been a decrease of 0.4% in bone mineral density in the rightfemur and a decrease of 2.1% in bone mineral density in the left femur. 2. FRAX analysis yields a 10-year probability of major osteoporoticfracture of 17.4% and a 10-year probability of hip fracture of 3.6%. Code 12086 -------- FINAL REPORT -------- Dictated By: Attila Silverio Dictated Date: 10/08/2024 09:38 ET Assigned Physician: Attila Silverio Reviewed and Electronically Signed By: Attila Silverio Signed Date: 10/08/2024 09:40 ET Workstation ID: [id number] Transcribed By: Self Edit Transcribed Date: 10/08/2024 09:38 ET Rylee Huizar MD IMG DXA PROCEDURES Final R esult from Last 3 Months Insurance MEDICARE [facility] Care Teams Timber Deadener Relationship Specialty Start Date End Date Ritchie Cuadra MD [address] [facility] [address] [place] [address] PCP - General Family Medicine 06/30/24
== END 2024-11-26 10:34 | disposition home or self-care (01) ==
LOC: HO.RHES 09:54
PROVIDERS: PCP Family Medicine; Visit Provider Internal Medicine Rheumatology
DX: M19.011 Primary osteoarthritis, right shoulder (principal); M18.0 Bilateral primary osteoarthritis of first carpometacarpal joints; M70.61 Trochanteric bursitis, right hip; M70.62 Trochanteric bursitis, left hip
CPT/HCPCS: 99213; G2211

== ENCOUNTER → 2024-11-26 09:53 | Outpatient (BNVA) | payer MEDICARE, SELFPAY | PROVIDERS: PCP Family Medicine; Visit Provider Internal Medicine Rheumatology | DX: M19.011 Primary osteoarthritis, right shoulder (principal); M18.0 Bilateral primary osteoarthritis of first carpometacarpal joints; M70.61 Trochanteric bursitis, right hip; M70.62 Trochanteric bursitis, left hip | CPT/HCPCS: 99212 ==

== ENCOUNTER 2025-02-10 14:50 | Outpatient (AMB) | payer MEDICARE, SELFPAY ==
--- OUTSIDE RECORDS SUMMARY | 2024-08-13 03:20 | XMS_ITS ---
Author Organization [facility] Address [address] [facility] [address] [place] [address] Care Team Providers Care Coating Line Worker Name Role Phone DR JAKE GABRIEL Primary Care Provider Unavail Rylee Castañeda Unavailable [phone] REASON FOR VISIT LR MEDICARE PE Encounters Encounter Location Date Provider Diagnosis [facility] [address] [place] [address] 08/13/2024 Rylee Huizar Plan Of Treatment Next Appt Details Provider Name:Rylee dotson, 02/17/2025 08:40:00 AM, [address] [facility], [address], [place], [address], Progress Notes * LIDIARAMON BLUEDOB:1950 (74 yo F)Acc No.[id number]:08/13/2024 PROGRESS NOTES Patient: RAMON MAZA Appointment Provider: Vannesa Huizar M.D. :1950 A ge:74 Y S ex:Female Date:08/13/2024 Address:[address] [place], [place] [id number] Pcp:DR JAKE GABRIEL Subjective: * Chief Complaints: * 1 . LR MEDICARE PE. * Medical History: Objective: * Vitals: Assessment: Plan: * Treatment: * Images: Billing Information: * Visit Code: * Procedure Codes: * Electronic signature of Debora Huizar MD on 02/11/2025 at 12:42 PM EST Sign off status: Pending * Appointment Provider: Vannesa Huizar M.D. Date: 0 08/13/2024 Generated for Pino tavarez/Kali/Swati on: 1 04/13/2024 12:42 PM EST
[2025-02-10 15:00] VITALS: BP 120/66; PULSE 71; O2SAT 97; BMI 23.4
--- NOTE | 2025-02-10 15:00 | MHC.OFFVIS ---
Vital Signs 02/10/25 15:00 Height 5 ft 3 in Weight 132 lb 4.438 oz BMI 23.4 BP 120/66 Blood Pressure Location Lt brachial Position Sitting Pulse 71 Pulse Source Pulse Oximeter Pulse Oximetry (%) 97 Oxygen Delivery Method Room Air Intake Visit Reasons: hand pain contisone inj Intake Note: Patient presents for hand/wrist pain cortisone injection. Prescription Benefit Specialist Required: No Accompanied by: Self / Same As Patient Allergies No Known Allergies Allergy (Verified 02/10/25 15:04) Medication List - Last Reconciled 02/10/25 by Darrion Duran MD arm brace (Wrist Brace) As directed Bilateral Push MetaGrip brace Diagnosis: Bilateral CMC osteoarthritis ascorbate calcium (vitamin C) 500 mg PO DAILY cholecalciferol (vitamin D3) 1,250 mcg PO QMONTH doxylamine succinate (Nighttime Sleep-Aid (doxylamine)) 25 mg PO BEDTIME PRN duloxetine 60 mg PO DAILY gabapentin 600 mg PO QPM meloxicam 15 mg PO DAILY rosuvastatin 20 mg PO DAILY HPI HPI hand pain contisone inj: Details: Three weeks ago she was baby-sitting her grandchildren. She made fresh applesauce for her grandchild. She also had to do more lifting than usual. She is experiencing left wrist pain. CMC splints is not helping. She also had shooting pain from her wrist upper forearm. [facility] Medical History Myofascial pain Fibromyalgia Surgical History History of carpal tunnel surgery H/O right wrist surgery Family History Father Heart attack Mother Advanced dementia Social History Alcohol intake: current Alcohol intake frequency: holidays/special occasions only Patient Tobacco Use Status: Never used Tobacco Physical Exam Vital Signs: Last Vital Signs Pulse 71 02/10/25 15:00 BP 120/66 02/10/25 15:00 Pulse Ox 97 02/10/25 15:00 Oxygen Delivery Method Room Air 02/10/25 15:00 BMI result Body Mass Index 23.4 Const Other: General: Comfortable Skin: No lesions seen MSK: Bilateral squaring of CMCs with tenderness on palpation. She also has tenderness along 1st extensor compartment of left wrist. Positive Nii test. Office Procedures AMB Joint Injection/Aspiration Joint Injection/Aspiration Details: Left CMC Prep: site was prepped using aseptic technique Injected: 10 mg of, Kenalog, with 0.25 mL of and 1% plain lidocaine Procedure: Informed verbal consent was obtained. The patient tolerated the procedure well. Postprocedure protocol was discussed with patient. Coding - Small Joint Procedure code (CPT) selection complete Office Meds lidocaine (PF) 10 mg/mL (1 %) injection solution Performing Provider: Darrion Duran MD Performing Location: [facility] Administered by: Darrion Duran MD on 02/10/25 15:48 Dose Route Admin Location Dispensed Lot Number Expiration Date [facility] Lead [address] Sql [employer] 0.25 mL Infiltration 2 mL [id number] 11/24/27 15622-832-57 [employer]ESEN[employer] Total Dispensed Waste 2 mL 87.5 % Kenalog 40 mg/mL suspension for injection Performing Provider: Darrion Duran MD Performing Location: [facility] Rheumatology[place] Administered by: Darrion Duran MD on 02/10/25 15:48 Dose Route Admin Location Dispensed Lot Number Expiration Date [facility] Lead [address] [employer] 10 mg Tendon Sheath Inj. 1 mL [id number] 09/22/26 [address]-6 [employer] Total Dispensed Waste 1 mL 75 % Assessment & Plan Assessment & Plan (1) Osteoarthritis of carpometacarpal (CMC) joint of both thumbs: Comment: Left CMC pain is uncontrolled. Right CMC pain is tolerable with splinting. Code(s): M18.0 - Bilateral primary osteoarthritis of first carpometacarpal joints Category: Medical Plan: Patient received right CMC cortisone injection She will call office after 2-3 weeks if pain persists She will continue to wear right CMC splint. I have asked her to purchase left thumb spica splint to control symptoms from de Quervain tenosynovitis Return to clinic in May 2025 or sooner if needed (2) De Quervain's tenosynovitis, left: Code(s): M65.4 - Radial styloid tenosynovitis [de Quervain] Category: Medical Plan: I have asked patient to obtain thumb spica splint from [employer]. She has not had success with insurance covering medical supplies such as the CMC splints She will call office in 2-3 weeks if pain persists. I will consider OT referral + NSAID rx versus cortisone injection Return to clinic in May 2025 or sooner if needed Orders: Orders AMB Joint Injection/Aspiration Today M19.049 - Primary osteoarthritis, unspecified hand Medications: Discontinued meloxicam Take with food Discontinued Reason: Doctor's Order 15 mg PO DAILY 30 tabs 2RF Coding Level of Care Code Est Pt Level 4 (48262) Complex EM visit Add On G2211 Diagnoses Osteoarthritis of carpometacarpal (CMC) joint of both thumbs M18.0 De Quervain's tenosynovitis, left M65.4 CPT Codes Coding - 85351 - Small joint: 00015 - Small Joint ([id number])
--- OUTSIDE RECORDS SUMMARY | 2025-02-11 12:42 | XMS_ITS | Patient Health Record ---
Author Organization [facility] Address [address] [place] [address] Care Team Providers Care Manager Beauty Name Role Phone DR JAKE GABRIEL Primary Care Provider Unavail able Rylee Huizar Unavailable [phone] Allergies No Known Allergies Reason For Referral [...] Status Risk Notes Problem Postmenopausal atrophic vaginitis (13018429) Postmenopausal atrophic vaginitis (N95.2) Active confirmed Problem Age-related osteoporosis (571474099) Age-related osteoporosis without current pathological fracture (M81.0) Active confirmed Problem Depressive disorder (90366596) Depressive disorder, not elsewhere classified (311) Active confirmed Major Problem Menopausal symptom (49147324) Symptomatic menopausal or female climacteric states (627.2) Active confirmed Major Problem Muscle pain (60496771) Unspecified myalgia and myositis (729.1) Active confirmed Major Problem Osteoporosis (10820338) Unspecified osteoporosis (733.00) Active confirmed Diag Problem 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) Disorder of bone and cartilage, unspecified (733.90) Active confirmed Diag Problem Gynecological examination normal (480727637591231) Routine gynecological examination (V72.31) Active confirmed Major Problem Screening for malignant neoplasm of colon (347481434) Special screening for malignant neoplasms, colon (V76.51) Active confirmed Major Encounters Encounter Location Date Provider Diagnosis [facility] [address] [place] [address] 10/08/2024 Rylee Huizar Encounter for screening for [...] Provider Name:Rylee dotson, 02/17/2025 08:40:00 AM, [address], [address], [place], [address], Insurance Providers Payer Name Payer Address Payer Phone Subscriber Number Group Number Insured Name Patient Relationship to Insured Coverage Start Date Coverage End Date MEDICARE [address] DERRICK ANGEL [id number] RAMON MAC Self - patient is the insured MEDEX [address] [place] [address] [id number] RAMON MAC Self - patient is [...]
--- OUTSIDE RECORDS SUMMARY | 2025-02-11 12:42 | XMS_ITS | Clinical Summary ---
Author Organization [facility] [place] [address] Care Team Providers Care Information Technology Associate Name Role Phone Unavailable Primary Care Provider Unavailabl e Social History Tobacco Use Types Packs/Day Years Used Date Smoking Tobacco: Never Assessed Comments Unknown Sex and Gender Information Value Date Recorded Sex Assigned at Not on file Legal Sex Female 1:38 PM EST Gender Identity Not on file Sexual Orientation Not on file Plan of Treatment Health Maintenance Due Date Last Done Comments CT Colonography 1950 Colonoscopy 1950 Colorectal Cancer Screening 1950 FIT DNA 1950 FIT 1950 Sigmoidoscopy (10 year) with FIT yearly 1950 Sigmoidoscopy 1950 Hepatitis C Screening 1968 Tetanus/Diphtheria/Pertussis Vaccines (1 - Tdap) 06/13 Breast Cancer Share Decision Needed 1990 Breast Cancer screening 1990 Pneumoccocal Vaccine: 50+ (1 of 1 - PCV) 2000 Zoster vaccine (1 of 2) 2000 Advance Directive 2005 Bone Density Scan 06/14/2015 Covid-19 Vaccine (1 - 2024- season) 2024 Influenza (Flu) vaccine (1 o f 1 - Influenza standard series) 11/24/2024 [place] [id number] [facility]
--- OUTSIDE RECORDS SUMMARY | 2025-02-11 12:43 | XMS_ITS | Data Portability ---
Author Organization [facility], Main Office Address [address] [place] [id number] Care Team Providers Care Casing Tester Name Role Phone DOMENICO BERRY Orchestrator SANDER DAVIS Assembly Riveter NATALY OLIVARES Suit Attendant [phone] JAKE GABRIEL Primary Care Provider Assessment Encounter Date Assessment Date Assessment LastModified [...] considered to investigate potential soft tissue abnormalities. [email or web address] Not available 08/28/2023 20:15:40 Plan of Treatment Reminders Order Date Submit Date Provider Last Modified By Organization Details Last Modified Time Details Appointments None recor ded. Lab vitam in D, 25-hy droxy , total , serum 2024 025 CLAUDIO [facility] (Centralized Electronic Ordering - All Locations), Patient Can Go To The Location Of Their Choice, [id number] 06:07:39 lipid panel , serum 2024 025 [email or web address] [facility], [address], [address], [place], [address], 5 12:45:37 CBC w/ auto diff 2024 025 CLAUDIO [facility], [address], [address], [place], [address], 06:07:38 CMP, serum or plasm a 2024 025 CLAUDIO [facility] (Centralized Electronic Ordering - All Locations), Patient Can Go To The Location Of Their Choice, 06:07:38 TSH, ultra -sens itive , serum 2024 025 [facility] Patient Can Go To The Location Of Their Choice, 06:07:40 rapid influ kayla virus A + B and SARS CoV + SARS CoV 2 Ag panel , [place], upper respi rator y speci men 2024 elena In-Office Order, Internal Use Only DO Not Attach Compendium DO Not Attach Compendium, Do Not Delete/merge, [id number] 14:23:00 C react sarahy prote in, QN, serum or plasm a 2023 024 MIAMI [facility]), Patient Can Go To The Location Of Their Choice, 22:06:38 eryth rocyt e sedim entat ion rate by alva rgren metho d 2023 024 CLAUDIO [facility]), Patient Can Go To The Location Of Their Choice, 22:06:37 MARGIE (anti nucle ar antib odies ) scree n, ifa, serum 2023 024 [facility]), Patient Can Go To The Location Of Their Choice, 22:06:38 rf (rheu matoi d facto r), serum 2023 024 CLAUDIO [facility] (Centralized Electronic Ordering - All Locations), Patient Can Go To The Location Of Their Choice, 22:06:35 ccp (cycl ic citru llina timothy pepti de) iga+i gg, serum 2023 024 CLAUDIO [facility] (Centralized Electronic Ordering - All Locations), Patient Can Go To The Location Of Their Choice, 22:06:37 borre kirk burgd orfer i IgG + IgM + total panel , IA, serum 2023 024 CLAUDIO [facility] (Centralized Electronic Ordering - All Locations), Patient Can Go To The Location Of Their Choice, 22:06:36 Referral gastr jordy soni ist refer ral - Needs colon cance r rhea hall 2024 025 [facility], [address] [place], [address], 5 08:13:21 ortho pedic surge on refer ral [address] [facility] (Martinez Reich), [address] [facility] [place], [address], 4 09:20:40 Procedures colon oscop y rhea hall (PROC ) 2024 025 ATHENAFAX [facility], [address] [place], [address], 5 08:22:34 cerum en remov al (PROC ) 2024 025 CLAUDIO In-Office Order, Internal Use Only DO Not Attach Compendium DO Not Attach Compendium, Do Not Delete/merge, [id number] 5 15:11:53 Surgeries None recor ded. Imaging XR, chest , 2 view - rule out pneum onia 2024 025 CLAUDIO [facility], [address] [place], [address], 15:19:17 XR, clavi hellen - RIGHT SIDE 2023 024 paolo [facility], [address] [place], [address], 4 15:02:31 Medication Orders azith romyc in 250 mg table t 2024 025 [id number], [address] [place], [address], 14:34:39 Patient TargetsNo targets recorded. Patient Instructions Encounter Date Encounter Id Patient Instructions Last Modified By Organization Details Last Modified Time 09/10/2023 [id number] Patient will follow up and keep appointment as scheduled. [email or web address] Not available 09/10/2023 13:18:18 06/02/2024 [id number] learning about fever [email or web address] Not available 06/02/2024 14:34:04 08/26/2024 [id number] advance care planning: care instructions [email or web address] Not available 08/26/2024 15:30:20 osteoporosis: care instructions ckokar Not available 08/26/2024 15:30:20 preventing falls: care instructions ckokar Not available 08/26/2024 15:30:20 well visit, over 65: care instructions ckokar Not available 08/26/2024 15:30:20 medicare preventive services guide (female 74yrs and under) [email or web address] Not available 08/26/2024 15:30:19 learning about colon cancer ckokar Not available 08/26/2024 15:30:20 Reason for Referral Orthopedic Surgeon Referral for Closed fracture of distal end of right radius Referring Physician: Jan Mckeon, Internal Medicine, Encounter Date: 09/10/2023 Behavioral Health Associate Referral for Screening for malignant neoplasm of colon Needs colon cancer screening Referring Physician: Jake Gabriel, Family Medicine, Encounter Date: 08/26/2024 Results Created Date Observation Date Name Description Value Unit Range Abnormal Flag Note LastModifiedBy Organization Detail LastModifiedTime 08/29/19 24 08/29/2023 CMP14 (REFL EX HGB A1C) glucose 87 mg/dL 70-99 Not Available [facility] ([facility]) [address] [facility], [place], [address], 08/30/2023 06:10:18 08/29/19 24 08/29/2023 CMP14 (REFL EX HGB A1C) BUN 9 mg/dL 8-27 Not Available [facility] ([facility]) [address] [place], [address], 08/30/2023 06:10:18 08/29/19 24 08/29/2023 CMP14 (REFL EX HGB A1C) creatinine 0.71 mg/dL 0.57-1 .00 Not Available [facility] ([facility]) [address] [place], [address], 08/30/2023 06:10:18 08/29/19 24 08/29/2023 CMP14 (REFL EX HGB A1C) eGFR 90 mL/mi n/1.7 3 >59 Not Available [facility] ([facility]) [address] [place], [address], 08/30/2023 06:10:18 08/29/19 24 08/29/2023 CMP14 (REFL EX HGB A1C) BUN/creatini ne ratio 13 12-28 Not Available [facility] ([facility]) [address] [place], [address], 08/30/2023 06:10:18 08/29/19 24 08/29/2023 CMP14 (REFL EX HGB A1C) sodium 139 mmol/ L 134-14 4 Not Available [facility] ([facility]) [address] [place], [address], 08/30/2023 06:10:18 08/29/19 24 08/29/2023 CMP14 (REFL EX HGB A1C) potassium 4.5 mmol/ L 3.5-5. 2 Not Available [facility] ([facility]) [address] [place], [address], 08/30/2023 06:10:18 08/29/19 24 08/29/2023 CMP14 (REFL EX HGB A1C) chloride 101 mmol/ L 96-106 Not Available [facility] ([facility]) [address] [place], [address], 08/30/2023 06:10:18 08/29/19 24 08/29/2023 CMP14 (REFL EX HGB A1C) carbon dioxide, total 28 mmol/ L 20-29 Not Available [facility] ([facility]) [address] [place], [address], 08/30/2023 06:10:18 08/29/19 24 08/29/2023 CMP14 (REFL EX HGB A1C) calcium 9.3 mg/dL 8.7-10 .3 Not Available [facility] ([facility]) [address] [place], [address], 08/30/2023 06:10:18 08/29/19 24 08/29/2023 CMP14 (REFL EX HGB A1C) protein, total 6.9 g/dL 6.0-8. 5 Not Available [facility] ([facility]) [address] [place], [address], 08/30/2023 06:10:18 08/29/19 24 08/29/2023 CMP14 (REFL EX HGB A1C) albumin 4.2 g/dL 3.8-4. 8 Not Available [facility] ([facility]) [address] [place], [address], 08/30/2023 06:10:18 08/29/19 24 08/29/2023 CMP14 (REFL EX HGB A1C) globulin, total 2.7 g/dL 1.5-4. 5 Not Available [facility] ([facility]) [address] [facility], [place], [address], 08/30/2023 06:10:18 08/29/19 24 08/29/2023 CMP14 (REFL EX HGB A1C) A/G ratio 1.6 1.2-2. 2 Not Available [facility] ([facility]) [address] [place], [address], 08/30/2023 06:10:18 08/29/19 24 08/29/2023 CMP14 (REFL EX HGB A1C) bilirubin, total 0.4 mg/dL 0.0-1. 2 Not Available [facility] ([facility]) [address] [place], [address], 08/30/2023 06:10:18 08/29/19 24 08/29/2023 CMP14 (REFL EX HGB A1C) alkaline phosphatase 60 IU/L 44-121 Not Available [facility] ([facility]) [address] [place], [address], 08/30/2023 06:10:18 08/29/19 24 08/29/2023 CMP14 (REFL EX HGB A1C) AST (SGOT) 26 IU/L 0-40 Not Available [facility] ([facility]) [address] [place], [address], 08/30/2023 06:10:18 08/29/19 24 08/29/2023 CMP14 (REFL EX HGB A1C) ALT (SGPT) 14 IU/L 0-32 Not Available [facility] ([facility]) [address] [place], [address], 08/30/2023 06:10:18 08/29/19 24 08/29/2023 CBC WITH DIFFE RENTI AL/PL ATELE T WBC 3.4 x10e3 /uL 3.4-10 .8 Not Available [facility] ([facility]) [address] [facility], [place], [address], 08/30/2023 06:10:19 08/29/1908/29/2023 CBC WITH DIFFE RENTI AL/PL ATELE T RBC 4.49 x10e6 /uL 3.77-5 .28 Not Available [facility] ([facility]) [address] [facility], [place], [address], 08/30/2023 06:10:19 08/29/1908/29/2023 CBC WITH DIFFE RENTI AL/PL ATELE T hemoglobin 13.6 g/dL 11.1-1 5.9 Not Available [facility] ([facility]) [address] [facility], [place], [address], 08/30/2023 06:10:19 08/29/1908/29/2023 CBC WITH DIFFE RENTI AL/PL ATELE T hematocrit 42.3 % 34.0-4 6.6 Not Available [facility] ([facility]) [address] [facility], [place], [address], 08/30/2023 06:10:19 08/29/1908/29/2023 CBC WITH DIFFE RENTI AL/PL ATELE T MCV 94 fL 79-97 Not Available [facility] ([facility]) [address] [place], [address], 08/30/2023 06:10:19 08/29/1908/29/2023 CBC WITH DIFFE RENTI AL/PL ATELE T MCH 30.3 pg 26.6-3 3.0 Not Available [facility] ([facility]) [address] [place], [address], 08/30/2023 06:10:19 08/29/1908/29/2023 CBC WITH DIFFE RENTI AL/PL ATELE T MCHC 32.2 g/dL 31.5-3 5.7 Not Available [facility] ([facility]) [address] [facility], [place], [address], 08/30/2023 06:10:19 08/29/19 24 08/29/2023 CBC WITH DIFFE RENTI AL/PL ATELE T RDW 12.3 % 11.7-1 5.4 Not Available [facility] ([facility]) [address] [facility], [place], [address], 08/30/2023 06:10:19 08/29/19 24 08/29/2023 CBC WITH DIFFE RENTI AL/PL ATELE T platelets 218 x10e3 /uL 150-45 0 Not Available [facility] ([facility]) [address] [facility], [place], [address], 08/30/2023 06:10:19 08/29/19 24 08/29/2023 CBC WITH DIFFE RENTI AL/PL ATELE T neutrophils 50 % not estab. Not Available [facility] ([facility]) [address] [facility], [place], [address], 08/30/2023 06:10:19 08/29/19 24 08/29/2023 CBC WITH DIFFE RENTI AL/PL ATELE T lymphs 32 % not estab. Not Available [facility] ([facility]) [address] [facility], [place], [address], 08/30/2023 06:10:19 08/29/19 24 08/29/2023 CBC WITH DIFFE RENTI AL/PL ATELE T monocytes 14 % not estab. Not Available [facility] ([facility]) [address] [facility], [place], [address], 08/30/2023 06:10:19 08/29/19 24 08/29/2023 CBC WITH DIFFE RENTI AL/PL ATELE T eos 3 % not estab. Not Available [facility] ([facility]) [address] [facility], [place], [address], 08/30/2023 06:10:19 08/29/19 24 08/29/2023 CBC WITH DIFFE RENTI AL/PL ATELE T basos 1 % not estab. 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 0 Not Available [facility] ([facility]) [address] [place], [address], 08/30/2023 06:10:19 08/29/19 24 08/29/2023 CBC WITH DIFFE RENTI AL/PL ATELE T lymphs (absolute) 1.1 x10e3 /uL 0.7-3. 1 Not Available [facility] ([facility]) [address] [place], [address], 08/30/2023 06:10:19 08/29/19 24 08/29/2023 CBC WITH DIFFE RENTI AL/PL ATELE T monocytes(ab solute) 0.5 x10e3 /uL 0.1-0. 9 Not Available [facility] ([facility]) [address] [place], [address], 08/30/2023 06:10:19 08/29/1908/29/2023 CBC WITH DIFFE RENTI AL/PL ATELE T eos (absolute) 0.1 x10e3 /uL 0.0-0. 4 Not Available [facility] ([facility]) [address] [place], [address], 08/30/2023 06:10:19 08/29/19 24 08/29/2023 CBC WITH DIFFE RENTI AL/PL ATELE T baso (absolute) 0.0 x10e3 /uL 0.0-0. 2 Not Available [facility] ([facility]) [address] [facility], [place], [address], 08/30/2023 06:10:19 08/29/19 24 08/29/2023 CBC WITH DIFFE RENTI AL/PL ATELE T immature granulocytes 0 % not estab. Not Available [facility] ([facility]) [address] [facility], [place], [address], 08/30/2023 06:10:19 08/29/19 24 08/29/2023 CBC WITH DIFFE RENTI AL/PL ATELE T immature grans (abs) 0.0 x10e3 /uL 0.0-0. 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 Not Available [facility] ([facility]) [address] [facility], [place], [address], 08/30/2023 06:10:19 08/29/19 24 08/29/2023 LIPID PANEL cholesterol, total 215 mg/dL 100-19 9 above high normal Not Available [facility] ([facility]) [address] [facility], [place], [address], 08/30/2023 06:10:19 08/29/19 24 08/29/2023 LIPID PANEL triglyceride s 73 mg/dL 0-149 Not Available [facility] ([facility]) [address] [place], [address], 08/30/2023 06:10:19 08/29/19 24 08/29/2023 LIPID PANEL HDL cholesterol 84 mg/dL >39 Not Available [facility] ([facility]) [address] [place], [address], 08/30/2023 06:10:19 08/29/19 24 08/29/2023 LIPID PANEL VLDL cholesterol ezequiel 13 mg/dL 5-40 Not Available [facility] ([facility]) [address] [place], [address], 08/30/2023 06:10:19 08/29/19 24 08/29/2023 LIPID PANEL LDL chol calc ([facility]) 118 mg/dL 0-99 above high normal Not Available [facility] ([facility]) [address] [place], [address], 08/30/2023 06:10:19 08/29/19 24 08/29/2023 LIPID PANEL comment: 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 Not Available [facility] ([facility]) [address] [place], [address], 08/30/2023 22:06:36 08/29/19 24 08/30/2023 CCP ANTIB [...] of the assay . Not Available [facility] ([facility]) [address] [place], [address], 08/30/2023 22:06:37 08/29/19 24 08/29/2023 SEDIM ENTAT ION RATE- WESTE RGREN sedimentatio n rate-westerg marla 7 mm/HR 0-40 Not Available [facility] ([facility]) [address] [place], [address], 08/30/2023 22:06:37 08/29/19 24 08/30/2023 C-FLOYD CTIVE PROTE IN, QUANT C-reactive protein, quant <1 mg/L 0-10 Not Available [facility] ([facility]) [address] [place], [address], 08/30/2023 22:06:38 08/29/19 24 08/30/2023 MARGIE BY IFA RFX TITER /KAIT JEAN PIERRE MARGIE by ifa rfx titer/patter n Negati ve Negat sarahy <1:80 Borde rline 1:80 Posit sarahy >1:80 ICAP nomen clatu re: AC-0 For more infor matio n about Hep-2 cell patte rns use ANApa ttern s.org , the offic ial websi te for the Inter natio nal Conse nsus on Antin uclea r Antib ericka (MARGIE) Patte rns (ICAP ). Not Available [facility] ([facility]) [address] [facility], [place], [address], 08/30/2023 22:06:38 05/21/19 25 05/21/2024 jeffum sanjiv palmer al (PROC ) done by Naa Not Available In-Office Order Internal Use Only DO Not Attach Compendium DO Not Attach Compendium, Do Not Delete/merge, 05/21/2024 15:02:17 06/03/19 25 06/02/2024 rapid influ kayla virus A + B and SARS CoV + SARS CoV 2 Ag panel , [place], upper respi rator y speci men Unknown Analyte negati ve Not Available In-Office Order Internal Use Only DO Not Attach Compendium DO Not Attach Compendium, Do Not Delete/merge, 06/02/2024 14:08:37 06/03/19 25 06/02/2024 rapid influ kayla virus A + B and SARS CoV + SARS CoV 2 Ag panel , IA, upper respi rator y speci men Unknown Analyte negati ve Not Available In-Office Order Internal Use Only DO Not Attach Compendium DO Not Attach Compendium, Do Not Delete/merge, 06/02/2024 14:08:37 06/03/19 25 06/02/2024 rapid influ kayla virus A + B and SARS CoV + SARS CoV 2 Ag panel , IA, upper respi rator y speci men Unknown Analyte negati ve Not Available In-Office Order Internal Use Only DO Not Attach Compendium DO Not Attach Compendium, Do Not Delete/merge, [id number] 06/02/2024 14:08:37 10/22/19 25 10/21/2024 CMP14 (REFL EX HGB A1C) glucose 82 mg/dL 70-99 normal Not Available [facility] ([facility]) [address] [facility], [place], [address], 10/22/2024 06:07:38 10/22/19 25 10/21/2024 CMP14 (REFL EX HGB A1C) BUN 10 mg/dL 8-27 normal Not Available [facility] ([facility]) [address] [facility], [place], [address], 10/22/2024 06:07:38 10/22/19 25 10/21/2024 CMP14 (REFL EX HGB A1C) creatinine 0.72 mg/dL 0.57-1 .00 normal Not Available [facility] ([facility]) [address] [facility], [place], [address], 10/22/2024 06:07:38 10/22/19 25 10/21/2024 CMP14 (REFL EX HGB A1C) eGFR 88 mL/mi n/1.7 3 >59 normal Not Available [facility] ([facility]) [address] [facility], [place], [address], 10/22/2024 06:07:38 10/22/19 25 10/21/2024 CMP14 (REFL EX HGB A1C) BUN/creatini ne ratio 14 12-28 normal Not Available [facility] ([facility]) [address] [place], [address], 10/22/2024 06:07:38 10/22/19 25 10/21/2024 CMP14 (REFL EX HGB A1C) sodium 137 mmol/ L 134-14 4 normal Not Available [facility] ([facility]) [address] [place], [address], 10/22/2024 06:07:38 10/22/19 25 10/21/2024 CMP14 (REFL EX HGB A1C) potassium 4.4 mmol/ L 3.5-5. 2 normal Not Available [facility] ([facility]) [address] [place], [address], 10/22/2024 06:07:38 10/22/19 25 10/21/2024 CMP14 (REFL EX HGB A1C) chloride 99 mmol/ L 96-106 normal Not Available [facility] ([facility]) [address] [place], [address], 10/22/2024 06:07:38 10/22/19 25 10/21/2024 CMP14 (REFL EX HGB A1C) carbon dioxide, total 24 mmol/ L 20-29 normal Not Available [facility] ([facility]) [address] [place], [address], 10/22/2024 06:07:38 10/22/19 25 10/21/2024 CMP14 (REFL EX HGB A1C) calcium 9.4 mg/dL 8.7-10 .3 normal Not Available [facility] ([facility]) [address] [place], [address], 10/22/2024 06:07:38 10/22/19 25 10/21/2024 CMP14 (REFL EX HGB A1C) protein, total 6.9 g/dL 6.0-8. 5 normal Not Available [facility] ([facility]) [address] [place], [address], 10/22/2024 06:07:38 10/22/19 25 10/21/2024 CMP14 (REFL EX HGB A1C) albumin 4.4 g/dL 3.8-4. 8 normal Not Available [facility] ([facility]) [address] [place], [address], 10/22/2024 06:07:38 10/22/19 25 10/21/2024 CMP14 (REFL EX HGB A1C) globulin, total 2.5 g/dL 1.5-4. 5 Not Available [facility] ([facility]) [address] [place], [address], 10/22/2024 06:07:38 10/22/19 25 10/21/2024 CMP14 (REFL EX HGB A1C) bilirubin, total 0.3 mg/dL 0.0-1. 2 normal Not Available [facility] ([facility]) [address] [place], [address], 10/22/2024 06:07:38 10/22/19 25 10/21/2024 CMP14 (REFL EX HGB A1C) alkaline phosphatase 60 IU/L 44-121 normal Not Available [facility] ([facility]) [address] [place], [address], 10/22/2024 06:07:38 10/22/19 25 10/21/2024 CMP14 (REFL EX HGB A1C) AST (SGOT) 27 IU/L 0-40 normal Not Available [facility] ([facility]) [address] [place], [address], 10/22/2024 06:07:38 10/22/19 25 10/21/2024 CMP14 (REFL EX HGB A1C) ALT (SGPT) 15 IU/L 0-32 normal Not Available [facility] ([facility]) [address] [place], [address], 10/22/2024 06:07:38 10/22/19 25 10/21/2024 CBC WITH DIFFE RENTI AL/PL ATELE T WBC 3.5 x10e3 /uL 3.4-10 .8 normal Not Available [facility] ([facility]) [address] [place], [address], 10/22/2024 06:07:38 10/22/19 25 10/21/2024 CBC WITH DIFFE RENTI AL/PL ATELE T RBC 4.47 x10e6 /uL 3.77-5 .28 normal Not Available [facility] ([facility]) [address] [place], [address], 10/22/2024 06:07:38 10/22/19 25 10/21/2024 CBC WITH DIFFE RENTI AL/PL ATELE T hemoglobin 13.8 g/dL 11.1-1 5.9 normal Not Available [facility] ([facility]) [address] [place], [address], 10/22/2024 06:07:38 10/22/19 25 10/21/2024 CBC WITH DIFFE RENTI AL/PL ATELE T hematocrit 42.2 % 34.0-4 6.6 normal Not Available [facility] ([facility]) [address] [place], [address], 10/22/2024 06:07:38 10/22/19 25 10/21/2024 CBC WITH DIFFE RENTI AL/PL ATELE T MCV 94 fL 79-97 normal Not Available [facility] ([facility]) [address] [place], [address], 10/22/2024 06:07:38 10/22/19 25 10/21/2024 CBC WITH DIFFE RENTI AL/PL ATELE T MCH 30.9 pg 26.6-3 3.0 normal Not Available [facility] ([facility]) [address] [place], [address], 10/22/2024 06:07:38 10/22/19 25 10/21/2024 CBC WITH DIFFE RENTI AL/PL ATELE T MCHC 32.7 g/dL 31.5-3 5.7 normal Not Available [facility] ([facility]) [address] [place], [address], 10/22/2024 06:07:38 10/22/19 25 10/21/2024 CBC WITH DIFFE RENTI AL/PL ATELE T RDW 12.5 % 11.7-1 5.4 Not Available [facility] ([facility]) [address] [facility], [place], [address], 10/22/2024 06:07:38 10/22/19 25 10/21/2024 CBC WITH DIFFE RENTI AL/PL ATELE T platelets 208 x10e3 /uL 150-45 0 normal Not Available [facility] ([facility]) [address] [facility], [place], [address], 10/22/2024 06:07:38 10/22/19 25 10/21/2024 CBC WITH DIFFE RENTI AL/PL ATELE T neutrophils 54 % not estab. normal Not Available [facility] ([facility]) [address] [facility], [place], [address], 10/22/2024 06:07:38 10/22/19 25 10/21/2024 CBC WITH DIFFE RENTI AL/PL ATELE T lymphs 28 % not estab. normal Not Available [facility] ([facility]) [address] [facility], [place], [address], 10/22/2024 06:07:38 10/22/19 25 10/21/2024 CBC WITH DIFFE RENTI AL/PL ATELE T monocytes 14 % not estab. normal Not Available [facility] ([facility]) [address] [facility], [place], [address], 10/22/2024 06:07:38 10/22/19 25 10/21/2024 CBC WITH DIFFE RENTI AL/PL ATELE T eos 3 % not estab. normal Not Available [facility] ([facility]) [address] [facility], [place], [address], 10/22/2024 06:07:38 10/22/19 25 10/21/2024 CBC WITH DIFFE RENTI AL/PL ATELE T basos 1 % not estab. normal Not Available [facility] ([facility]) [address] [facility], [place], [address], 10/22/2024 06:07:38 10/22/19 25 10/21/2024 CBC WITH DIFFE RENTI AL/PL ATELE T immature cells [employer] Not Available [facility] ([facility]) [address] [facility], [place], [address], 10/22/2024 06:07:38 10/22/19 25 10/21/2024 CBC WITH DIFFE RENTI AL/PL ATELE T neutrophils (absolute) 2.0 x10e3 /uL 1.4-7. 0 normal Not Available [facility] ([facility]) [address] [facility], [place], [address], 10/22/2024 06:07:38 10/22/19 25 10/21/2024 CBC WITH DIFFE RENTI AL/PL ATELE T lymphs (absolute) 1.0 x10e3 /uL 0.7-3. 1 normal Not Available [facility] ([facility]) [address] [place], [address], 10/22/2024 06:07:38 10/22/19 25 10/21/2024 CBC WITH DIFFE RENTI AL/PL ATELE T monocytes(ab solute) 0.5 x10e3 /uL 0.1-0. 9 normal Not Available [facility] ([facility]) [address] [place], [address], 10/22/2024 06:07:38 10/22/19 25 10/21/2024 CBC WITH DIFFE RENTI AL/PL ATELE T eos (absolute) 0.1 x10e3 /uL 0.0-0. 4 normal Not Available [facility] ([facility]) [address] [place], [address], 10/22/2024 06:07:38 10/22/19 25 10/21/2024 CBC WITH DIFFE RENTI AL/PL ATELE T baso (absolute) 0.0 x10e3 /uL 0.0-0. 2 normal Not Available [facility] ([facility]) [address] [facility], [place], [address], 10/22/2024 06:07:38 10/22/19 25 10/21/2024 CBC WITH DIFFE RENTI AL/PL ATELE T immature granulocytes 0 % not estab. Not Available [facility] ([facility]) [address] [facility], [place], [address], 10/22/2024 06:07:38 10/22/19 25 10/21/2024 CBC WITH DIFFE RENTI AL/PL ATELE T immature grans (abs) 0.0 x10e3 /uL 0.0-0. 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 Not Available [facility] ([facility]) [address] [facility], [place], [address], 10/22/2024 06:07:38 10/22/19 25 10/21/2024 LIPID PANEL cholesterol, total 186 mg/dL 100-19 9 normal Not Available [facility] ([facility]) [address] [place], [address], 10/22/2024 06:07:39 10/22/19 25 10/21/2024 LIPID PANEL triglyceride s 53 mg/dL 0-149 normal Not Available [facility] ([facility]) [address] [place], [address], 10/22/2024 06:07:39 10/22/19 25 10/21/2024 LIPID PANEL HDL cholesterol 81 mg/dL >39 normal Not Available [facility] ([facility]) [address] [place], [address], 10/22/2024 06:07:39 10/22/19 25 10/21/2024 LIPID PANEL VLDL cholesterol ezequiel 10 mg/dL 5-40 Not Available [facility] ([facility]) [address] [place], [address], 10/22/2024 06:07:39 10/22/19 25 10/21/2024 LIPID PANEL LDL chol calc ([facility]) 95 mg/dL 0-99 Not Available [facility] ([facility]) [address] [place], [address], 10/22/2024 06:07:39 10/22/19 25 10/21/2024 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 The Endoc rine Socie ty went on to furth er defin e vitam in D insuf ficie ncy as a level betwe en 21 and 29 ng/mL (2). 1. IOM (Inst itute of Medic ine). 2010. Dieta ry refer ence intak es for calci um and D. Nola clarke DC: The Natio Pending sale to [facility] . 2. Stu mckeon MF, Binkl ey [place], Bissoo off-F errterri i LERNER, et al. Evalu ation , treat ment, and preve ntion of vitam in D defic iency : an Endoc rine Socie ty clini ezequiel pract ice guide line. JCEM. 2010; 96(7) :1911 -30. Not Available [facility] ([facility]) [address] [facility], [place], [address], 10/22/2024 06:07:39 10/22/19 25 10/22/2024 TSH RFX ON ABNOR MAL TO FREE T4 TSH 2.270 uIU/m L 0.450- 4.500 normal Not Available [facility] ([facility]) [address] [facility], [place], [address], 10/22/2024 06:07:40 10/22/19 25 10/24/2024 HEMOG LOBIN A1C hemoglobin A1C 6.0 % 4.8-5. 6 above high normal Predi abete s: 5.7 - 6.4 Diabe tony: >6.4 Glyce valerie contr ol for adult s with diabe tony: <7.0 Not Available [facility] ([facility]) [address] [facility], [place], [address], 10/24/2024 16:06:13 10/22/19 25 10/24/2024 ANANTH EN AUTHO RIZAT ION written authorizatio n David Murphy en Autho rizat ion Recei alysa. Autho rizat ion recei alysa from [facility] LUCIA GABRIEL for Link Reque st on 10-24 Logge d by Steven Mcdowell Not Available [facility] ([facility]) [address] [facility], [place], [address], 10/24/2024 16:06:13 12/11/1912/10/2024 TISSU E EXAM .note See Note Origi nal Order ing Provi julia: MAGEN GORMAN ON [facility] - [address], [place] we[place], [place] [address] Not Available [facility] [address] [facility] [place], [address], 12/11/2024 10:45:08 12/11/19 25 12/10/2024 TISSU E EXAM final diagnosis Ascend ing Colon, polyp: Nondi agnos tic. Fecal debri s only. Elect antonio leon arlene d by Brando vega MD on 2024 at 10:43 AM Not Available [facility]/S Dept [address] [facility] [place], [address], 12/11/2024 10:45:08 12/11/19 25 12/10/2024 TISSU E EXAM gross description A. Large Intest ine, Right/ Ascend ing Colon, polyp x1: Label ed poly p x 1 ascen d colon . Recei alysa in forma barry is a 0.7 x 0.3 x 0.[address] of fecal /food debri s. Tissu e is not ident ified . The speci men is wrapp ed in paper and submi tted in toto in one casse tte, multi ple piece s, multi ple level s (whic h might fail proce ssing ). TS Not Available [facility] Dept [address] [facility] [place], [address], 12/11/2024 10:45:08 12/11/19 25 12/10/2024 TISSU E EXAM disclaimer Unles s other galloway speci fied, all tissu e is 10% NB forma barry fixed and paraf fin embed ded. Not Available [facility]/S Dept [address] [facility] [place], [address], 12/11/2024 10:45:08 08/28/19 24 08/28/2023 XR, clavi hellen Examin ation: Right clavic le perfor med on 08/28/19 24. Histor y: Reason : pain Findin gs: Two views of the right clavic le are submit timothy. No fractu res are demons trated . The AC joint is preser alysa. The visual ized ribs and lung parenc hyma are unrema rkable . Impres marta: There is no osseou s abnorm ality. WSN: [id number] Orderi ng Physic naty: Vincent Gabriel Dictat ed By: Wendy Hidalgo MD Dictat ed Date/T juana: 2:58 pm Review ed By: Wendy Hidalgo MD Signed By: Wendy Hidalgo MD Signed Date/T juana: 2:58 pm Transc ribed By: CSB Transc ribed Date/T juana: 2:57 pm Patien t Class: Outpat ient [facility] (Outpt Imaging) [address], [place], [address], 08/29/2023 10:47:20 08/28/19 24 08/28/2023 XR, clavi hellen No observ ation record ed. [email or web address] [facility] [address], [place], [address], 08/29/2023 10:40:49 09/11/19 24 09/07/2023 XR, wrist , 3 or more view No observ ation record ed. [email or web address] Not Available 2023 16:06:13 09/11/19 24 09/07/2023 [...] l in furthe r evalua tion. WSN: [id number] Orderi ng Physic naty: Vincent Gabriel Dictat ed By: Tiera Tolliver MD Dictat ed Date/T juana: 3:17 pm Review ed By: Tiera Tolliver MD Signed By: Tiera Tolliver MD Signed Date/T juana: 3:17 pm Transc ribed By: KAVON Transc ribed Date/T juana: 3:13 pm Patien t Class: Outpat ient [facility] (Outpt Imaging) [address] [facility], [place], [address], 10/05/2023 16:26:46 10/03/1910/03/2023 US, head + neck, soft tissu e No observ ation record ed. [email or web address] Not Available 10/03 09:52:38 10/18/19 24 10/17/2023 MRI, clavi hellen, w/o contr ast No observ ation record ed. [facility] ([facility]) [address] , [place], [address], 10/22/2023 07:54:22 11/16/19 24 11/16/2023 MAMMO , scree isabel, digit al, bilat eral No observ ation record ed. [email or web address] [facility] Diagnosit Imaging Dept [address] [facility], [place], [address], 11/16/2023 12:24:39 04/09/19 25 04/07/2024 ct guide d needl e biops y (PROC ) No observ ation record ed. [address] (Medical Records) [address] [place] [address], [address], 04/11/2024 13:42:50 04/17/19 25 02/29/2024 XR, shoul julia No observ ation record ed. [address] (Medical Records) [address] [place], [address], 04/17/2024 16:25:43 04/17/19 25 02/29/2024 XR, shoul julia No observ ation record ed. [address] (Medical Records) [address] [place] [address], [address], 04/17/2024 16:26:08 06/03/19 25 06/02/2024 XR, chest [...] IMPRES MARTA: No acute abnorm ality. WSN: [id number] Orderi ng Physic naty: Iris saleemEthan Dictat ed By: Genny juarez MD, Dilip Sanchez Dictat ed Date/T juana: 3:16 pm Review ed By: Genny juarez MD, Dilip Sanchez Signed By: Dilip Clay MD, V Signed Date/T juana: 3:16 pm Transc ribed By: KAVON Transc ribed Date/T juana: 3:14 pm Patisanjiv t Class: Outpat ient [facility] (Outpt Imaging) [address] [place] [address], [address], 06/03/2024 08:36:30 10/09/19 25 10/08/2024 bd bone densi ty dxa axial skele ton See Note [facility] , a member of [employer] Patisanjiv t Name: CUAUHTEMOC HUTCHINSON Date of : 1950 Reason for Exam: age relate d osteop orosis w/o curren t pathol ogical fractu re Exam Date: 2024 [id number] EST Report Status : Final Orderi ng Provid er: DOMENICO ARCINIEGA PCP: VINCENT GABRIEL HISTOR Y: The patien t is a 74-yea r-old postme nopaus al female with clinic al concer n for metabo lic bone diseas e. FINDIN GS: Dual energy x-ray absorp tiomet ry of the lumbar spine and femurs is perfor med. The mean bone minera l densit y at L1-2 is 0.846 gm/cm2 which is 73% of that of young normal s and 91% of that of age matche d contro ls. This yields a T-scor e of -2.7 and a Z-scor e of -0.7 which is diagno stic of osteop orosis . The mean bone minera l densit y of the femurs bilate rally is 0.829 gm/cm2 which is 82% of that of young normal s and 107% of that of age matche d contro ls. This yields a T-scor e of -1.4 and a Z-scor e of 0.4 which is diagno stic of osteop enia. IMPRES MARTA: 1. Osteop orosis . There has been a decrea se of 2.3% in bone minera l densit y in the lumbar spine since the prior examin ation of 023. There has been a decrea se of 0.4% in bone minera l densit y in the right femur and a decrea se of 2.1% in bone minera l densit y in the left femur. 2. FRAX analys is yields a 10-yea r probab ility of major osteop orotic fractu re of 17.4% and a 10-yea r probab ility of hip fractu re of 3.6%. Code 09242 ------ -- FINAL REPORT ------ -- Dictat ed By: Attila Vazquez Dictat ed Date: 2024 09:38 ET Assign ed Physic naty: Attila Vazquez Review ed and Electr onical ly Signed By: Attila Vazquez Signed Date: 2024 09:40 ET Workst ation ID: [id number] Transc ribed By: Self Edit Transc ribed Date: 2024 09:38 ET [email or web address] [facility]/S Dept [address] [place] [address] [place], [address], 10/08/2024 11:18:33 11/22/19 25 11/21/2024 mg mammo digit al scree isabel W fabian bilat See Note [facility] , a member of [employer] Michelle moran Name: CUAUHTEMOC HUTCHINSON Date of : 1950 Reason for Exam: breast screen ing by mammog za Exam Date: 2024 [id number] EST Report Status : Final Orderi ng Provid er: KEV Danielson PCP: VINCENT GABRIEL [facility] AL: The amyen luisa is a 74 years Female presen ting for routin e screen ing mammog linus. COMPAR JACLYN: Most recent ly 024 and most remote ly 07/01/19 17. TECHNI QUE: Full-f ield digita l mammog linus of the breast s bilate rally consis ting of tomosy nthesi s in MLO and CC projec tion is perfor med in the GE Senogr aphe 2000-D unit. Comput er aided detect ion utiliz ing the iCAD system was utiliz ed. FINDIN GS: The breast s are again seen to be compos ed of a combin ation of fatty and fibrog landul ar elemen ts. Bilate ral benign puncta te calcif icatio ns, as well as a coarse calcif icatio n anteri jessica in the left breast , are unchan ged. There is no suspic ious cluste r of microc alcifi cation s, mass, or area of jess ectura l distor tion. There is no skin thicke isabel or nipple retrac tion. IMPRES MARTA: No mammog raphic eviden ce of malign vera. A negati ve mammog za in the presen ce of a clinic ally suspic ious palpab le abnorm ality does not preclu de the possib ility of malign vera or alter the indica tions for biopsy . PQRI CPT II 3342F Code 82126, 44609 PQRI 225 CPT II 7025F TISSUE DENSIT Y: There are scatte red areas of fibrog landul ar densit y. (BI-RA DS catego ry B) IMPRES MARTA: Benign . BI-RAD S CATEGO RY: 2 - BENIGN RECOMM ENDATI ON: Screen ing bilate ral mammog za is recomm ended in 1 year. Mammo Locati on: [facility], [address] [place] [address] ------ -- FINAL REPORT ------ -- Dictat ed By: Attila Vazquez Dictat ed Date: 2024 09:43 ET Assign ed Physic naty: Attila Vazquez Review ed and Electr onical ly Signed By: Attila Vazquez Signed Date: 2024 09:46 ET Workst ation ID: [id number] Transc ribed By: Self Edit Transc ribed Date: 2024 09:43 ET [email or web address] [facility]/S Dept [address] [place], [address], 12/23/2024 14:02:46 12/11/19 25 EGD No observ ation record ed. [email or web address] [facility]/S Dept [address], [place], [address], 12/11/2024 11:21:25 01/27/20 25 01/26/2025 CT, coron hiwot calci um score No observ ation record ed. [facility] ([facility]) [address], [place], [address], 01/27/2025 10:51:40 Result Notes Documentation Provider Name and Address Organization Details Recorded Time Xr, Clavicle : Examination: Right clavicle performed on 08/28/2023. History: Reason: pain Findings: Two views of the right clavicle are submitted. No fractures are demonstrated. The AC joint is preserved. The visualized ribs and lung parenchyma are unremarkable. Impression: There is no osseous abnormality. WSN: [id number] Ordering Physician: Jake Gabriel Dictated By: Wendy Porter MD Dictated Date/Time: 08/28/23 2:58 pm Reviewed By: Wendy Porter MD Signed By: Wendy Porter MD Signed Date/Time: 08/28/23 2:58 pm Transcribed By: KAVON Transcribed Date/Time: 08/28/23 2:57 pm Patient Class: Outpatient Jake Gabriel MD [address] [address], [place], [address], [facility] 08/28/2023 21:10:56 Xr, Chest, 2 View : Chest 2 Views Frontal and Lat Reason: r o pna COMPARISON: Two priors with the most recent dated 07/06/2017. FINDINGS: LINES AND TUBES: None. LUNGS AND PLEURA: Clear lungs. Normal pulmonary vascularity. No pleural effusion. No pneumothorax. HEART, MEDIASTINUM AND KALYAN: Heart is normal in size. Normal mediastinal and hilar contour. BONES AND SOFT TISSUES: No acute abnormality. IMPRESSION: No acute abnormality. WSN: [id number] Ordering Physician: Ethan Azevedo Dictated By: Dilip Self MD, V Dictated Date/Time: 06/02/24 3:16 pm Reviewed By: Dilip Self MD, V Signed By: Dilip Self MD, V Signed Date/Time: 06/02/24 3:16 pm Transcribed By: KAVON Transcribed Date/Time: 06/02/24 3:14 pm Patient Class: Outpatient Ethan Azevedo MD [address], [address], [facility] 06/02/2024 16:46:16 Problems Name Problem SNOMED Code Status Onset Date Resolution Date Notes Provider Name and Address Organization Details Recorded Time Hyperlip idemia 16195137 Active Not Available [facility] 18:13:44 Fatigue 71935814 Completed 02/10/2016 BIMAL Chance, [facility] 6 13:40:58 Cough 80698286 Completed 10/20/2014 BIMAL Chance, [facility] 5 09:18:24 Urinary tract infectio us disease 31643871 Completed 02/10/2016 BIMAL Chance, [facility] 6 13:41:10 Impacted cerumen 54584246 Completed 02/10/2016 BIMAL Chance, [facility] 6 13:40:33 Hearing loss 47449735 Completed 02/10/2016 BIMAL Chance, [facility] 6 13:40:36 Active or passive immuniza tion Completed 201010/07/2013 RECORDED 01/31/20 11 11:47AM BY PRISCILL A OBRIEN, HISTORIC AL SUMMARY Not Available [facility] 4 15:07:28 Administ ration of bacteria l and viral vaccine Completed 201010/07/2013 RECORDED 01/31/20 11 11:47AM BY LEANDRO OBRIEN, HISTORIC AL SUMMARY Not Available [facility] 4 15:07:28 Active or passive immuniza tion Completed 201010/30/2013 RECORDED 01/31/20 11 11:47AM BY LEANDRO OBRIEN, HISTORIC AL SUMMARY Not Available [facility] 4 13:13:38 Administ ration of bacteria l and viral vaccine Completed 201010/30/2013 RECORDED 01/31/20 11 11:47AM BY LEANDRO OBRIEN, HISTORIC AL SUMMARY Not Available [facility] 4 13:13:38 Active or passive immuniza tion Completed 201010/31/2013 RECORDED 01/31/20 11 11:47AM BY LEANDRO OBRINE, HISTORIC AL SUMMARY Not Available [facility] 4 03:54:45 Administ ration of bacteria l and viral vaccine Completed 201010/31/2013 RECORDED 01/31/20 11 11:47AM BY LEANDRO OBRIEN, HISTORIC AL SUMMARY Not Available [facility] 4 03:54:45 Screenin g for malignan t neoplasm of breast Completed 201110/07/2013 RECORDED 02/13/20 12 4:18PM BY SRINIVAS VEGA MA, ANNOTBRYON ON/ADDEN DUM Not Available [facility] 4 15:07:28 Neck pain 86674762 Completed 201110/07/2013 RECORDED 02/13/20 12 4:18PM BY SRINIVAS VEGA MA, ALEXATI ON/ADDEN DUM Not Available [facility] 4 15:07:28 Screenin g for malignan t neoplasm of cervix Completed 201110/07/2013 RECORDED 02/13/20 12 4:18PM BY SRINIVAS VEGA MA, ANNOTATI ON/ADDEN DUM Not Available [facility] 4 15:07:29 Screenin g for malignan t neoplasm of colon Completed 201110/07/2013 RECORDED 02/13/20 12 4:18PM BY SRINIVAS VEGA MA, ANNOTATI ON/ADDEN DUM Not Available [facility] 4 15:07:29 Tinnitus 85425578 Completed 201110/07/2013 RECORDED 02/13/20 12 4:18PM BY SRINIVAS VEGA MA, ANNOTATI ON/ADDEN DUM Not Available [facility] 4 15:07:29 Noninfla mmatory disorder of the vagina 42700196 Completed 201110/07/2013 IMPRESSI ON: HEALING, HERPES CULTURE WAS NEGATIVE BUT CLINICAL LY STILL C/W HERPETIC INFECTIO N, WILL FINISH VALTREX AND WILL CALL BACK IF SHE HAS ANY SUBSEQUE NT FLARES FOR ANTI-VIR AL MEDICATI ON.; RECORDED 02/13/20 12 4:18PM BY SRINIVAS VEGA MA, ANNOTATI ON/ADDEN DUM Not Available [facility] 4 15:07:29 Screenin g for malignan t neoplasm of breast Completed 201110/30/2013 RECORDED 02/13/20 12 4:18PM BY SRINIVAS VEGA MA, ANNOTATI ON/ADDEN DUM Not Available [facility] 4 13:13:38 Neck pain 53805048 Completed 201110/30/2013 RECORDED 02/13/20 12 4:18PM BY SRINIVAS VEGA MA, ANNOTATI ON/ADDEN DUM Not Available [facility] 4 13:13:38 Screenin g for malignan t neoplasm of cervix Completed 201110/30/2013 RECORDED 02/13/20 12 4:18PM BY SRINIVAS VEGA MA, ANNOTATI ON/ADDEN DUM Not Available [facility] 4 13:13:39 Tinnitus 54939470 Completed 201110/30/2013 RECORDED 02/13/20 12 4:18PM BY SRINIVAS VEGA MA, ANNOTATI ON/ADDEN DUM Not Available [facility] 4 13:13:39 Noninfla mmatory disorder of the vagina 43468950 Completed 201110/30/2013 IMPRESSI ON: HEALING, HERPES CULTURE WAS NEGATIVE BUT CLINICAL LY STILL C/W HERPETIC INFECTIO N, WILL FINISH VALTREX AND WILL CALL BACK IF SHE HAS ANY SUBSEQUE NT FLARES FOR ANTI-VIR AL MEDICATI ON.; RECORDED 02/13/20 12 4:18PM BY SRINIVAS VEGA MA, ANNOTATI ON/ADDEN DUM Not Available [facility] 4 13:13:39 Screenin g for malignan t neoplasm of breast Completed 201110/31/2013 RECORDED 02/13/20 12 4:18PM BY SRINIVAS VEGA MA, ANNOTATI ON/ADDEN DUM Not Available [facility] 4 03:54:45 Neck pain 40915635 Completed 201110/31/2013 RECORDED 02/13/20 12 4:18PM BY SRINIVAS VEGA MA, ANNOTATI ON/ADDEN DUM Not Available [facility] 4 03:54:45 Screenin g for malignan t neoplasm of cervix Completed 201110/31/2013 RECORDED 02/13/20 12 4:18PM BY SRINIVAS VEGA MA, ANNOTATI ON/ADDEN DUM Not Available [facility] 4 03:54:45 Tinnitus 43664967 Completed 201110/31/2013 RECORDED 02/13/20 12 4:18PM BY SRINIVAS VEGA MA, ANNOTATI ON/ADDEN DUM Not Available [facility] 4 03:54:45 Noninfla mmatory disorder of the vagina 08855795 Completed 201110/31/2013 IMPRESSI ON: HEALING, HERPES CULTURE WAS NEGATIVE BUT CLINICAL LY STILL C/W HERPETIC INFECTIO N, WILL FINISH VALTREX AND WILL CALL BACK IF SHE HAS ANY SUBSEQUE NT FLARES FOR ANTI-VIR AL MEDICATI ON.; RECORDED 02/13/20 12 4:18PM BY SRINIVAS VEGA MA, ANNOTATI ON/ADDEN DUM Not Available [facility] 4 03:54:45 Impacted cerumen 83651741 Completed 201210/07/2013 RECORDED 08/08/19 13 12:54PM BY SRINIVAS VEGA MA, ANNOTATI ON/ADDEN DUM BIMAL Chance, [facility] 6 13:40:33 Impacted cerumen 90519917 Completed 201210/30/2013 RECORDED 08/08/19 13 12:54PM BY SRINIVAS VEGA MA, ANNOTATI ON/ADDEN DUM BIMAL Chance, [facility] 6 13:40:33 Impacted cerumen 39471585 Completed 201210/31/2013 RECORDED 08/08/19 13 12:54PM BY SRINIVAS VEGA MA, ANNOTATI ON/ADDEN DUM BIMAL Chance, [facility] 6 13:40:33 Adult health examinat ion Completed 201310/07/2013 RECORDED 08/06/19 14 3:40PM BY SRINIVAS VEGA MA, ANNOTATI ON/ADDEN DUM Not Available [facility] 4 15:07:27 Influenz a vaccine needed 82983187363 06 Completed 201310/07/2013 RECORDED 08/06/19 14 3:39PM BY SRINIVAS VEGA MA, ANNOTATI ON/ADDEN DUM Not Available [facility] 4 15:07:28 Low back pain 990631374 Completed 201310/07/2013 RECORDED 08/06/19 14 3:39PM BY SRINIVAS VEGA MA, ANNOTATI ON/ADDEN DUM Not Available [facility] 4 15:07:28 Urinary tract infectio us disease 01947362 Completed 201310/07/2013 RECORDED 08/06/19 14 3:40PM BY SRINIVAS VEGA MA, ANNOTATI ON/ADDEN DUM BIMAL Chance [place] [facility] 6 13:41:10 Adult health examinat ion Completed 201310/30/2013 RECORDED 08/06/19 14 3:40PM BY SRINIVAS VEGA MA, ANNOTATI ON/ADDEN DUM Not Available [facility] 4 13:13:38 Influenz a vaccine needed 42578338933 06 Completed 201310/30/2013 RECORDED 08/06/19 14 3:39PM BY SRINIVAS VEGA MA, ANNOTATI ON/ADDEN DUM Not Available [facility] 4 13:13:38 Low back pain 735637866 Completed 201310/30/2013 RECORDED 08/06/19 14 3:39PM BY SRINIVAS VEGA MA, ANNOTATI ON/ADDEN DUM Not Available [facility] 4 13:13:38 Urinary tract infectio us disease 23843056 Completed 201310/30/2013 RECORDED 08/06/19 14 3:40PM BY SRINIVAS VEGA MA, ANNOTATI ON/ADDEN DUM BIMAL [facility] [place] [facility] 6 13:41:10 Adult health examinat ion Completed 201310/31/2013 RECORDED 08/06/19 14 3:40PM BY SRINIVAS VEGA MA, ANNOTATI ON/ADDEN DUM Not Available [facility] 4 03:54:45 Influenz a vaccine needed 94452298633 06 Completed 201310/31/2013 RECORDED 08/06/19 14 3:39PM BY SRINIVAS VEGA MA, ANNOTATI ON/ADDEN DUM Not Available [facility] 4 03:54:45 Low back pain 388801433 Completed 201310/31/2013 RECORDED 08/06/19 14 3:39PM BY SRINIVAS VEGA MA, STEVEN ON/ADDEN DUM Not Available [facility] 4 03:54:45 Urinary tract infectio us disease 05507332 Completed 201310/31/2013 RECORDED 08/06/19 14 3:40PM BY SRINIVAS VEGA MA, STEVEN ON/ADDEN DUM BIMAL Chance, [facility] 6 13:41:10 Anxiety state 252378826 Active 2013 Not Available [facility] 18:13:44 Cervical spondylo sis without myelopat hy 661763403 Active 2013 Not Available [facility] 1 18:13:44 Malaise and fatigue 607343970 Completed 201302/10/2016 BIMAL Chance, [facility] 6 13:40:54 Fibromyo sitis 28736839 Active 2013 Not Available [facility] 1 18:13:44 Pure hypercho lesterol emia 101582634 Completed 201307/18/2022 Jake Gabriel MD [address], [place], [address] , [facility] 3 10:45:55 Medial epicondy litis 24391349 Completed 201304/22/2018 Adithya Bella MD [address], [place], [address] , [facility] 9 14:53:40 Osteopor osis 75037767 Active 2013 FOLLOWED BY AUDIO VISUAL DESIGN ENGINEER Not Available [facility] 18:13:44 Screenin g for malignan t neoplasm of colon Completed 201310/30/2013 RECORDED 09/16/19 14 11:48AM BY WIL RUFFIN MA, STEVEN ON/ADDEN DUM Not Available [facility] 4 13:13:38 Acute upper respirat ory infectio n 68710487 Completed 201302/13/2014 IMPRESSI ON: WITH COUGH, TRY SUPPORTI VE TX FOR A FEW MORE DAYS BUT WAS GIVEN A SCRIPT FOR ABX TO FILL IF HER SINUS SYMPTOMS PERSIST/ WORSEN; RECORDED 09/16/19 14 12:59PM BY NATALY DEVI PA-C, OFFICE VISIT BIMAL Chance, [facility] 4 09:12:03 Screenin g for malignan t neoplasm of colon Completed 201310/31/2013 RECORDED 09/16/19 14 11:48AM BY WIL RUFFIN MA, STEVEN ON/ADDEN DUM Not Available [facility] 4 03:54:45 Glaucoma suspect Active 2018 Jusko Not Available [facility] 1 18:13:44 Insomnia 850815711 Active 2020 Not Available [facility] 1 18:13:44 History of vertigo 575913019 Active 2021 Temitope Mckeon PA-C [address], [place], [address] , [facility] 2 10:59:45 Impacted cerumen of bilatera l ears 41520773789 56606 Completed 202107/18/2022 Jake Gabriel MD [address], [place], [address] , [facility] 3 10:45:36 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 Procedures Surgical History Date Name Laterality Status Provider Name and Address Organization Details Recorded Time 11/22/19 25 Mammogram Screening completed Candace Rodriguez [facility] 12/23/2024 14:02:13 08/27/19 25 Advanced Care Planning completed Jake Gabriel MD [address] [facility] [address] [facility], [place], [address], [facility] 08/25/2024 12:53:13 11/16/19 24 Most Recent Mammogram completed Kayley Benitez [facility] 11/16/2023 12:24:35 08/24/19 24 Advanced Care Planning completed Jake Gabriel MD [address] [address], [place], [address], [facility] 08/24/2023 08:48:07 10/04/19 23 Dxa bone density costa vrt fx completed Kayley Benitez [facility] 10/20/2022 10:31:59 07/19/19 23 Advanced Care Planning completed Jake Gabriel MD [address] [address], [place], [address], [facility] 07/17/2022 09:15:51 11/08/19 22 Cataract Surgery completed Agustín Fernández MA [facility] 12/26/2021 13:02:55 09/24/19 21 Most Recent Bone Density completed Esther Obrien [facility] 10/12/2020 15:36:44 05/26/19 20 Mini-Cog Test completed Srinivas vega MA [facility] 05/26/2019 13:39:03 04/22/19 19 Mini-Cog Test completed Srinivas vega MA [facility] 04/22/2018 14:07:57 04/20/19 18 Fall Risk Assessment completed Srinivas vega MA [facility] 04/20/2017 13:40:03 04/20/19 18 Mini-Cog Test completed Srinivas vega MA [facility] 04/20/2017 13:41:33 04/19/19 17 Fall Risk Assessment completed Loli Turpin MA [facility] 04/19/2016 13:10:15 04/19/19 17 Mini-Cog Test completed Loli Turpin MA [facility] 04/19/2016 13:12:44 02/13/20 14 Date of Last Pap Smear completed Srinivas vega MA [facility] 01/29/2015 15:42:42 08/28/19 14 Date of Last Colonoscopy completed Esther Obrien [facility] 10/12/2020 15:36:55 08/28/19 14 Colonoscopy completed Srinivas vega MA [facility] 02/10/2016 13:41:50 11/24/18 80 Endometrial Biopsy completed Srinivas vega MA [facility] 01/29/2015 15:42:43 Carpal tunnel surgery completed Srinivas vega MA [facility] 04/20/2017 13:35:21 Endometrial Biopsy completed Srinivas vega MA [facility] 04/24/2020 08:12:52 Imaging Results None recorded. Procedure Notes None recorded. Medical Equipment None [...] TAKE 1 TABLET DAILY IN THE EVENING 2024 active Not Available Not Available Not Avai lable azithromy dustin 250 mg tablet TAKE 2 TABLETS ON FIRST DAY , THEN 1 TABLET DAILY FOR 4 DAYS 08/26 completed Not Available Not Available Not Available ofloxacin 0.3 % eye drops 04/20 completed Not Available Not Available Not Available benzonata te 200 mg capsule Take 1 capsule 3 times a day by oral route as needed for 5 days, for cough. 06/16 completed Not Available Not Available Not Available valacyclo vir 1 gram tablet EVERY 12 HOURS 09/24 completed RECORDED 09/27/19 12 4:13PM BY RUBEN QAUINO ON AUTO-JORGE LUIS CTIVATIO N; Not Available Not Available Not Available meloxicam 15 mg tablet TAKE ONE TABLET BY MOUTH EVERY DAY WITH FOOD 08/26 completed Not Available Not Available Not Available cyanocoba irwin (vit B-12) 1,000 mcg tablet Take 1 tablet every day by oral route. 08/26 completed Not Available Not Available Not Available tramadol 50 mg tablet Take 1 tablet 4 times a day by oral route for 30 days. 09/20 completed Not Available Not Available Not Available simvastat in 40 mg tablet TAKE 1 TABLET DAILY IN THE EVENING 01/27 completed Not Available Not Available Not Available ketorolac 0.5 % eye drops 12/19 [...] mcg (1,000 unit) capsule Take 1 capsule 3 times a week by oral route as needed for 90 days. active Not Available Not Available No t Available rosuvasta tin 20 mg tablet Take 1 tablet every day by oral route at bedtime for 90 days. 2024 active Not Available Not Available Not Avai lable nitrofura ntoin monohydra te/macroc rystals 100 mg capsule Take 1 capsule twice a day by oral route for 7 days. 2014 active Not Available Not Available Not Avai lable duloxetin e 30 mg capsule,d elayed release TAKE 1 CAPSULE TWICE A DAY 08/30 completed Not Available Not Available Not Available duloxetin e 60 mg capsule,d elayed release TAKE 1 CAPSULE DAILY active Not Available Not Available No t Available pregabali n 75 mg capsule Take 1 capsule twice a day by oral route as directed for 90 days. 04/22 completed Lyrica Not Available Not Available Not Available chlorhexi dine gluconate 0.12 % mouthwash RINSE WITH 15 ML BY MOUTH TWO TIMES A DAY, BEGIN USING 36 HOURS AFTER SURGERY, USE FOR 2 WEEKS active Not Available Not Available No t Available Cervical Traction USE DAILY FOR CERVICAL [...] completed Not Available Not Available Not Available Calcium Chew 500 mg (1,250 mg)-200 unit tablet Take 1 tablet every day by oral route. active Not Available Not Available No t Available antipyrin e-benzoca ine 5.5 %-1.4 % [...] Relief 50 mcg/actua tion nasal spray,[employer] [place] 1 spray every day by intranas al [...] blood by Pulse oximetry Body temperature Systolic And Diastolic Provider Name and Address Organization Details Last Updated DateTime 5 159.39 cm 23.2 kg/m2 97501.0 1 g 84 /min 99 % 99 % 98.4 [degF] 157/84 mm[Hg] Virgen Sánchez MA [facility] 5 14:32:14 Date Recorded Body height Body mass index (BMI) Body weight Heart rate Oxygen saturation Oxygen saturation in Arterial blood by Pulse oximetry Body temperature Systolic And Diastolic Provider Name and Address Organization Details Last Updated DateTime 5 159.39 cm 22.7 kg/m2 97004.6 3 g 104 /min 97 % 97 % 102 [degF] 134/81 mm[Hg] Nataly Caro MA [facility] [place] 5 13:53:30 Date Recorded Body height Body mass index (BMI) Body weight Heart rate Oxygen saturation Oxygen saturation in Arterial blood by Pulse oximetry Body temperature Systolic And Diastolic Provider Name and Address Organization Details Last Updated DateTime 5 159.39 cm 23.4 kg/m2 88374.6 g 77 /min 98 % 98 % 98.2 [degF] 125/73 mm[Hg] Srinivas lindquist MA [facility] 5 14:44:13 Date Recorded Body height Body mass index (BMI) Body weight Oxygen saturation Oxygen saturation in Arterial blood by Pulse oximetry Heart rate Body temperature Systolic And Diastolic Provider Name and Address Organization Details Last Updated DateTime 4 159.39 cm 23.1 kg/m2 02712.2 2 g 98 % 98 % 85 /min 98.2 [degF] 120/72 mm[Hg] Naa Ferrera MA [facility] 4 13:56:15 Date Recorded Body height Body mass index (BMI) Body weight Heart rate Oxygen saturation Oxygen saturation in Arterial blood by Pulse oximetry Body temperature Systolic And Diastolic Provider Name and Address Organization Details Last Updated DateTime 4 159.39 cm 23.5 kg/m2 05950.4 g 83 /min 96 % 96 % 98.2 [degF] 154/83 mm[Hg] Priscilla Osborne LPN [facility] 4 11:41:42 Social History Question Answer Notes LastModified by Organizat ion Details LastModified Time Tobacco Smoking Status Never Smoker BIMAL Vann, [facility] 01/27/2014 16:13:52 Do You Have An Advance Directive? No HCP Information not available 12/26/2021 Is Blood Transfusion Acceptable In An Emergency? Yes Information not available 01/29/2015 What Is Your Level Of Caffeine Consumption? Moderate 1-2 Cups Of Coffee Daily Information not available 01/27/2014 How Much Tobacco Do You Chew? None Information not available 01/29/2015 What Type Of Diet Are You Following? REGULAR Steel Oats With Fruit Information not available 08/24/2023 Which Illicit Or Recreational Drugs Have You Used? None Information not available 01/27/2014 Are There Any Guns Present In Your [...] 04/24/2020 Have You Recently Traveled To A COVID-19 High Risk Area Or Gathering In The Last 10 Days? No Information not available 04/24/2020 What Was The Date Of Your Most Recent Tobacco Screening? 08/26/2024 Information not available 08/26/2024 How Many Children Do You Have? 2 Robert Information not available 04/24/2020 Do You Use [...] To Smoke? No Information not available 01/29/2015 How Much Tobacco Do You Smoke? No Information not available 04/24/2020 Do You Use Sunscreen Routinely? No Information not available 01/29/2015 How Many Years Have You Smoked Tobacco? 0 Information not available 01/29/2015 Sex: Unknown Functional Status Question Answer Note LastModified by Organizat ion Details LastModified Time Do you use any illicit or recreational drugs? No Information not available 12/26/2021 Do you or have you ever used any other forms of tobacco or nicotine? No Information not available 12/26/2021 What is your level of alcohol consumption? None Information not available 01/27/2014 Do you or have you ever used smokeless tobacco? Never used smokeless tobacco Information not available 04/24/2020 Are you currently employed? Yes retired 05/2021 Information not available 08/24/2023 Are you able to walk independently without assistance or assistive devices? YESWOREST Information not available 12/26/2021 Are you able to care for yourself independently? 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 Never used electronic cigarettes Information not available 12/26/2021 What is your exercise level? Moderate walking daily (up to 10,000)(wh en weather allows); weight training Information not available [...] available 07/18/2022 10:24:10 Medical History Condition Response Other N Gout N Kidney Stones N Blood Diseases N Hyperthyroidism N Breast Cancer N Depression Y COPD N Lung Disease N Hypothyroidism N Defects or Inherited Disease Y Anesthesia Complications N Headaches/Migraines N Varicose Veins N Anxiety Disorder Y Obesity N Vision or Eye Problems N Arthritis Y Head Injury/Concussion N Polyps N Infertility N Congenital Anomalies N Acid Reflux (GERD) N Cancer N Stroke N ADHD N Endometriosis Y High Cholesterol Y Liver Disease N Fibromyalgia Y Kidney Disease N Heart Problems N Ear or Hearing Problems N Hospitalizations N Thyroid Problems N GI Problems N Acne N Eating Disorder N Skin Problems N Anemia N Constipation N Bladder Problems N Mental Illness N Ovarian Cancer N Diabetes N Blood Transfusions N Seizures/Epilepsy N Tuberculosis N AIDS/HIV N Congestive Heart Failure (CHF) N Eczema N Diverticulitis N Abuse/Domestic Violence N Asthma N Allergies N Reflux/GERD N [...] Immunizations Vaccine Type Date Status Note Provider Reinaldo hall and Address Organization Details Recorded Time Influenza, split virus, trivalent, preservative [address] [facility] [place] 10/25/2022 11:37:25 zoster live 4 completed Not Available [facility] 02/22/2021 18:13:44 Influenza, split virus, trivalent, preservative [address] [facility] 10/25/2022 11:37:24 Influenza, split virus, quadrivalent, preservative 6 completed Not Available [facility] 02/22/2021 18:13:44 Influenza, high-dose, trivalent, PF 7 [facility] 14:20:36 Pneumococcal conjugate PCV 13 8 [facility] 09/20/2021 10:39:07 Tdap 8 completed Not Available [facility] 02/22/2021 18:13:44 Influenza, high-dose, trivalent, PF 8 completed Not Available [facility] 02/22/2021 18:13:44 Influenza, high-dose, trivalent, PF 9 completed Not Available [facility] 02/22/2021 18:13:44 COVID-19, mRNA, LNP-S, PF, 100 mcg/0.5mL dose or 50 mcg/0.25mL dose [address] [facility] 09/20/2021 10:39:07 COVID-19, mRNA, LNP-S, PF, 100 mcg/0.5mL dose or 50 mcg/0.25mL dose [address] [facility] 09/20/2021 10:39:07 zoster recombinant [address] [facility] 09/20/2021 10:39:07 Influenza, split virus, trivalent, preservative [address] [facility] 09/20/2021 10:39:07 Influenza, MDCK, quadrivalent, PF 1 completed BIMAL Anderson, [facility] 09/20/2021 10:39:07 COVID-19, mRNA, LNP-S, PF, 100 mcg/0.5mL dose or 50 mcg/0.25mL dose 1 completed BIMAL Anderson, [facility] 09/20/2021 10:39:07 Influenza, adjuvanted, trivalent, PF 8 completed BIMAL Anderson, [facility] 09/20/2021 10:39:07 zoster recombinant 2 completed BIMAL Anderson, [facility] 09/20/2021 10:39:07 Influenza, split virus, trivalent, preservative 4 completed BIMAL Anderson, [facility] 09/20/2021 10:39:07 Influenza, high-dose, trivalent, PF 7 completed BIMAL Anderson, [facility] 09/20/2021 10:39:07 Influenza, adjuvanted, quadrivalent, PF 0 completed BIMAL Anderson, [facility] 09/20/2021 10:39:07 Influenza, adjuvanted, trivalent, PF 9 completed BIMAL Anderson, [facility] 09/20/2021 10:39:07 typhoid, ViCPs 4 completed BIMAL Velázquez, [facility] 06/02/2024 13:44:13 Hep A-Hep B 4 completed BIMAL Velázquez, [facility] 06/02/2024 13:44:13 Hep A-Hep B 4 completed BIMAL Velázquez, [facility] 06/02/2024 13:44:13 Influenza, adjuvanted, trivalent, PF 4 completed Nataly Bakerkimber BIMAL jamie, [facility] 06/02/2024 13:44:13 Influenza, adjuvanted, quadrivalent, PF 3 completed Nataly Bakerkimber BIMAL jamie, [facility] 06/02/2024 13:44:13 Hep A-Hep B 4 completed Nataly Caro BIMAL jamie, [facility] 06/02/2024 13:44:13 pneumococcal polysaccharide PPV23 7 completed Not Available [facility] 04/12/2019 02:21:26 Influenza, split virus, trivalent, preservative 1 completed Not Available [facility] 02/22/2021 18:13:44 Tdap 8 completed Not Available [facility] 02/22/2021 18:13:44 pneumococcal polysaccharide PPV23 0 completed Not Available [facility] 02/22/2021 18:13:44 Influenza, split virus, trivalent, preservative 2 completed Not Available [facility] 02/22/2021 18:13:44 Influenza, split virus, trivalent, preservative 3 completed Not Available [facility] 02/22/2021 18:13:44 Influenza, high-dose, quadrivalent, PF 2 completed Jake Gabriel MD [address], [address], [facility] 12/19/2021 17:37:40 Past Encounters Encounter ID Performer Location Encounter Start Date Encounter Closed Date Diagnosis/Indication Diagnosis SNOMED-CT Code Diagnosis ICD10 Code Diagnosis IMO Codes Diagnosis Note [id number] autoEComm erce [address] [facility] [place] [address] 01/25/2011 00:00:[id number] [facility] [address] [place] [address] 08/01/2011 00:00:00 [id number] auto[address]Comm erce [address] [place] [address] 09/15/2011 00:00:00 [id number] autoEComm erce [address] [place] [address] 09/22/2011 00:00:00 [id number] autoEComm erce [address] [facility] [place] [address] 02/13/2012 00:00:00 [id number] autoEComm erce [address] [facility] [address] [place] [address] 07/22/2012 00:00:00 [id number] autoEComm erce [address] [facility] [place] [address] 08/07/2012 00:00:00 [id number] autoEComm erce [address] [facility] [place] [address] 02/10/2013 00:00:00 [id number] autoEComm erce [address] [facility] [place] [address] 08/05/2013 00:00:00 [id number] autoEComm erce [address] [facility] [place] [address] 09/15/2013 00:00:00 [id number] Adithya Bella MD Main Office [address] [facility] [address] [place], [place] [address] 01/27/2014 16:02:32 01/27/2014 16:52:00 Adult health examination [id number] Fibromyositis [id number] [facility] [id number] [facility] [id number] Adithya Bella MD Main Office [address] [facility] [address] [place], [place] [address] 04/02/2014 15:23:49 04/02/2014 16:34:49 Cough 25421877 Fibromyositis 74722281 Urinary tr act infectious disease 71546895 [id number] JAZMYN Carrera Main Office [address] [facility] [address] [place], [place] [address] 08/24/2014 11:30:18 08/24/2014 12:01:36 Impacted cerumen 03901197 Hearing loss 89428701 seco ndary to cerumen impaction [id number] Adithya Bella MD Main Office [address] [facility] [address] [place] [address] 01/29/2015 15:32:03 01/29/2015 16:39:41 Adult health examination 735989151 Z00.00 Screening for malignant neoplasm of cervix 753393942 Z12.4 Screening for malignant neoplasm of breast 521442546 Z12.39 Fibromyositis 03126206 M 79.7 [id number] Adithya Bella MD Main Office [address] [address] [place] [address] 02/10/2016 13:37:03 02/10/2016 14:24:51 Community acquired pneumonia 182942886 J18.9 Cough 16086697 R05 [id number] Adithya Bella MD Main Office [address] [address] [place] [address] 04/19/2016 12:57:36 04/19/2016 14:17:25 Adult health examination 275307880 Z00.00 Administra tion of pneumococcal vaccine 94571256 Z23 Bursitis of shoulder 239 023504 M75.50 Neck pain 36287015 M54.2 Fibromyositis 53518968 M 79.7 Hyperlipidemia 59017798 E78.5 Fatigue 63606032 R53.83 [id number] Adithya Bella MD Main Office [address] [address] [place] [address] 04/20/2017 13:25:57 04/20/2017 14:51:04 Adult health examination 976780209 Z00.[address] 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 is advised to use MUcinex DM for cough and nasal saline solution BID. [id number] JAZMYN Thomas Main Office [address] [address] [place] [address] 07/06/2017 09:29:02 07/06/2017 10:01:39 Cough 75314890 R05 cxr today, start zpak as directed, hydration, rest. use tessalon perles as needed. call/ return for worsening or concerns. [id number] Temitope Mckeon PA-C Main Office [address] [place] [address] 10/03/2017 15:13:10 10/03/2017 15:57:04 Tendinitis of left rotator cuff 0918394521 3421729 M75.82 Overuse injury and fall in the L . rotator cuff. Will refer to PT and for cortisone shot with orthopedis t. Increase Ibuprofen to 400-600 mg 2-3 times daily with food. Fall W19.XXXA 2 months ago [id number] Ethan Azevedo MD Main Office [address] [address] [place] [address] 12/14/2017 12:37:41 12/14/2017 13:27:02 Laceration of thigh 568695099 S71.111A Sutures removed without incident. Dressing applied. Topical wound care and return to activity discussed. Effect of exposure to external cause 92250552 W26.9XXA Surgical follow-up 91502 4000 Z48.02 [id number] Adithya Bella MD Main Office [address] [place] [address] 04/22/2018 13:45:46 04/22/2018 14:57:23 Hepatitis C screening 895411580 Z11.59 Osteoporosis 52620991 M8 1.0 continues on Prolia Adult heal th examination 016519864 Z00.00 Pure hypercholesterolemia 694242472 E78.00 Fibromyositis 28565808 M 79.7 Fatigue 25283647 R53.83 [id number] Magaly robert MD Main Office [address] [address] [place] [address] 04/29/2018 09:29:57 04/29/2018 10:42:11 Lumbar sprain 894919151 S33.5XXA lumbar strain. NO symptoms of lumbar [...] 2 weeks less than 50% improvemen t. 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 Followed by AUDIO VISUAL DESIGN ENGINEER Insomnia 198808833 G47.0 0 [id number] Guillermo Hurd MD Telehealt h [address] [place] [address] 09/16/2020 12:37:15 09/16/2020 14:57:10 Upper respiratory infection 54937613 J06.9 She will continue to treat her symptoms. No role for abx. Anterior epistaxis 71431 4002 R04.0 [id number] Jake Gabriel MD Main Office [address] [facility] [address] [place] [address] 12/29/2020 13:05:04 12/29/2020 13:56:18 Fibromyositis 96017610 M79.7 Pure hypercholesterolemia 477682296 E78.00 Lipid trending down, Cuauhtemoc, does not want to adjust statin dose at this time, she will work on diet and exercise instead and we will repeat her fasting lipids in 6 months. Anxiety state 067700803 F41.1 No thoughts of self harm or harming others, notes to stress related to sudden passing of still trying to cope.She is open to considerin g counseling with Esthela. 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 Osteoporosis 17590997 M8 1.0 Was on Prolia however when DC, notes she was back to being osteoporot ic she has apt with endocrine for osteoporos is. Insomnia 769854075 G47.0 0 Takes lorazepam, risk of benzodiaza pine use discussed at [facility]. Counseling 742625365 Z71 .9 Referral for counseling with Jagjit / BETH Townsend. Please provide patient with contact info to schedule their appointmen torey Shah#[phone] email: [email or web address] Tendinitis of left shoulder [id number] 114721 M75.92 Patient renal function is stable, I [...] strength was preserved in bilateral upper extremity. [id number] Jake Gabriel MD Main Office [address] [address] [place] [address] 09/20/2021 10:33:50 09/20/2021 11:07:17 Facial paresthesia 73865569 R20.2 Unclear if related to cervical spondylosi s /fibromyal greg . WE will check electrolyt es and other labs to r/o organic causes. Pt. is encouraged to document frequency of episodes , duration and accompanyi ng symptoms. Cobalamin deficiency 190 554738 E53.8 Impacted c erumen of bilateral ears [id number] 694985 H61.23 Recommend to use debrox fro 1 week and return for ear irrigation . [id number] Guillermo Hurd MD Main Office [address] [address] [place] [address] 10/19/2021 10:58:50 10/19/2021 11:20:05 Impacted cerumen of bilateral ears 5867291322 761306 H61.23 [id number] Jake Gabriel MD Main Office [address] [place] [address] 12/19/2021 14:00:48 12/19/2021 15:29:48 Fatigue 67962460 R53.83 Hyperlipidemia 10715026 E78.5 Influenza vaccine needed 1720618642 106 Z23 Insomnia 275652452 G47.0 0 Takes lorazepam, risk of benzodiaza pine use discussed at [facility].Sle ep hygiene discussedW ants to cut or Benzo will darlin to 0.5 daily start gabapentin . Will also refer to sleep medicine for tx option given age and concurrent medication .Risk of sedation discussed. Disorder of vitamin D 38 4835087 E55.9 Skin lesion 76727060 L98 .9 Possible irritation of skin tag, [...] skin tag thus referral provided. Seasonal allergy 8382624 04 J30.2 Advised to do daily floanse 2 sprays at bedtime, saline rinse in AM.Shefali 1 tab q12 as needed.Wilian ibarra follow up in [place]. She is afebrile. Anxiety state 389144975 F41.1 Fibromyositis 61342219 M 79.7 Stable on duloxetine . [id number] Jake Gabriel MD Main Office [address] [facility] [address] [place] [address], [place] [address] 07/18/2022 10:00:22 07/18/2022 12:01:08 Adult health examination 101488549 Z00.00 Patient was counseled on healthy diet, exercise and nutrition due to Body mass index is 23.2 kg/m . Last Colonoscop y:Date: 08/27/13Resu lt:Plan: will try to get records. Last [...] discussed. Advance di rective discussed with patient 116628650 Z71.89 HCP and MOLST provided. Fatigue 05631345 R53.83 Z00.00 Hyperlipidemia 98027427 E78.5 Z00.00 Insect bit e, nonvenomous, of abdominal wall 740462036 S30.861A Area is red, but no fluctuance or drainage. In time frame of ppx will do doxy, vignesh affects discussed. Intermitte nt confusion 977278271 R41.0 No neurologic al deficit, concer for possible tia type vs acute stress.Wilian l get MRI firstED red flag discussed. Paresthesia 12137402 R20 .2 Notes around lips.Will ensure not cardiac radiation - thus will get ecgCould be fibroWill check HSV ab. Pain of sa croiliac joint 677337103 M53.3 Likes to avoid analgesic some component of fibro vs bursitis.W ill start PT.No red flags such as weakness, incontinen ce or loss of sensation. Elevated blood-pressure reading without diagnosis of hypertension 959809637 R03.0 Low sodium diet discussed Wants to hold on meds and check bp at home - will follow up 2 weeks over tele. Counseled on diet/exerc ise Advised to keep BP daily BP log and technique counseled. Red flags of HTN emergency discussed and when to go to ED. Impacted c erumen in left ear 6501554420 964143 H61.22 [id number] Ethan Azevedo MD Main Office [address] [place] [address] 10/25/2022 11:23:03 10/25/2022 12:47:42 Palpitations 51818268 R00.2 stable - offered pt reassuranc e c nl ekg Obstructiv e sleep apnea syndrome 20443368 G47.33 cont f/u c sleep med, cont cpap as dir - heraclio in light of h/o palp above (pt had wondered if cpap caused palp - advised her unlikely) Contact de rmatitis caused by urushiol from [employer] poison festus 686986948 L25.5 has had it x ~ 1 wk, no sig help c benadryl gel, rubbing etoh - rec change to calamine and rx c slow pred taper Pain of right wrist 3169 374691 69301 M25.531 x few wks - no direct [...] could use prn heat to improve ROM [id number] Jake Gabriel MD Main Office [address] [facility] [address] [place] [address] 08/24/2023 11:17:59 08/24/2023 12:24:37 Adult health examination 941947606 Z00.00 Patient was counseled on healthy diet, exercise and nutrition due to Body mass index is 23.2 kg/m . Last Colonoscop y:Date: 08/27/13Resu lt:Plan: ordered. Last Mammogram: Date: 10/03/22Res ult: Birad-2Pla n: Ordered by AUDIO VISUAL DESIGN ENGINEER. Last Pap smearDate: Result:Herman n: past age [...] Medication reconciled . Advance directives discussed. Fatigue 72219608 R53.83 Z00.00 Hyperlipidemia 49822025 E78.5 Z00.00 Advance di rective discussed with patient 343895753 Z71.89 HCP and MOLST provided. 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 [id number] Jake Gabriel MD Main Office [address] [facility] [address] [place] [address] 08/28/2023 13:43:34 08/28/2023 14:26:14 Clavicle pain 883083326 M25.519 [id number] Ethan Azevedo MD Main Office [address] [facility] [address] [place] [place] [address] 09/10/2023 11:31:25 09/10/2023 12:32:23 Closed fracture of distal end of right radius 0582599005 0950426 S52.501A seen at [place] in [place] - only have adal whiteside to review - attempting to get other recordswil l get ortho evalencour aged pt to go to [facility] [place] later today / tomorrow, bring consult order just in case they need it Laceration of left lower leg 8763553803 3189995 S81.812A had 1 suture placed at ER - advised to have it removed in 10 days - will arrange for next week Fall W19.XXXA Transition of care from emergency department to self-care 5915161034 27755 Z76.89 reviewed ER adal whiteside - medical records dept attempting to get records/xr ay reports [id number] Guillermo Hurd MD Main Office [address] [facility] [address] [place] [address] 05/21/2024 14:22:38 05/21/2024 15:12:00 Impacted cerumen of bilateral ears 5317461778 310020 H61.23 [id number] Ethan Azevedo MD Main Office [address] [facility] [address] [facility] [place] [address] 06/02/2024 13:40:22 06/02/2024 14:37:47 Exposure to viral disease 4702932806 23589 Z03.818 Atypical pneumonia 68667 6009 J18.9 If CXR negative will cover with azithro alone, if positive would broaden coverage. Fever 886387339 R50.9 Based on negative COVID/Flu testing and fever in office today will cover for atypical PNA based on current incidence in community. [id number] Jake Gabriel MD Main Office [address] [facility] [address] [facility] [place] [address] 08/26/2024 14:26:22 08/26/2024 16:02:33 Adult health examination 418655705 Z00.00 Patient was counseled on healthy diet, exercise and nutrition due to Body mass index is 23.4 kg/m . Last Colonoscop y:Date: 12/28/23Res ult: ?poor prepPlan: ?recall 6mo. Last Mammogram: Date: 11/16/23Res ult: Birad-2Pla n: Ordered by AUDIO VISUAL DESIGN ENGINEER. Last Pap smearDate: Result:Herman n: past age for screening. Bone density scanDate: 10/03/22Res ult: osteoporos is of spinePlan: Following Endo Vaccines:T dAP: 12/05/21Zos ter rec: 01/12/21, 06/15/21PCV 13: 08/16/17PPS V23: 04/19/16PCV 20: Script givenRSV: Script givenInflu kayla: 01/07/24Co vid: encourage updated vaccine Routine labs today Immunizati on status reviewed. Will screen based on risk factors. Regular dental and ophtho care advised as well as seat belt and sunscreen use. Distracted driving discussed. Medication reconciled . Advance directives discussed. Advance di rective discussed with patient 205743159 Z71.89 HCP and MOLST provided. HCP to be changed. Fatigue 65010197 R53.83 Z00.00 R73.01 Hyperlipidemia 44036629 E78.5 Z00.00 Screening for malignant neoplasm of colon 063740516 Z12.11 Administra tion of pneumococcal vaccine 96015957 Z23 Osteoporosis 16932919 M8 1.0 Administra tion of viral vaccine 42306313 Z29.11 Health Concerns Section Related Observation LastModified by Organization Detai ls LastModified Time None Recorded Concern Status LastModified by Organization Details LastModified Time None Recorded Advance Directives Directive N: HCP Payers Insurance Date Sequence Insurance Name Policy Number Policy Cortés Covered Member ID Cortés Member ID Guarantor Name 08/26/2024 1 [place] [employer] Cuauhtemoc Hutchinson [id number] Cuauhtemoc Hutchinson 09/02/2024 2 [place] [id number] Cuauhtemoc Hutchinson [id number] Cuauhtemoc Hutchinson 09/20/2021 2 [place] [facility] (O) [id number] Cuauhtemoc Hutchinson [id number] Cuauhtemoc Hutchinson Notes Date Note Type Note Provider Name and Address Organization Details Recorded Time 08/28/2023 text/html Musculoskeletal PainReported by Patient The patient presented today after noticing swelling on the right [...] dominant and regularly lifts weights at the [employer]. She denies experiencing any chest pain. Additionally, she notes that she tends to favor her right side, which sometimes results in neck strain. Fernanda ayala [facility] 09/11/2023 19:00:16 09/10/2023 text/html broke [place] dept attempting to get records/xray reportson dc instructions - R radius fx - wearing temp cast/sling Fernanda ayala [facility] 09/30/2023 10:26:13 05/21/2024 text/html ROS as noted in the HPI She feels like her left ear is blocked. She denies any pain and does not have any congestion or sinus problems. Also no hearing loss. This is a chronic and intermittent problem for her. Guillermo Hurd MD [address] [address], [place], [address], [facility] 05/21/2024 15:08:09 06/02/2024 text/html Upper Respirator y SymptomsReported by PatientUpper Respiratory SymptomsFor quality, patient reportsdry coughandbark-like cough. For context, patient reportssick contactbut reportsno foreign travelandnon-smoker. For location, patient reportschest. For severity, patient reportsmoderate. For onset/timing, patient reportsactual date: (05/26/2024). For associated symptoms, patient reportsno fever,no vomiting,no diarrhea, andno nausea.Recently returned from visiting grandchildren in [place] and they were ill. Fernanda ayala [facility] 06/10/2024 12:46:02 08/26/2024 text/html Medicare Annual Wellness VisitReported by PatientSocial/Behavior al HistoryFor diet and nutrition, patient reportshealthy diet. For fracture risk, patient reportsno history of fractures. For physical activity, patient reportsexercises on a regular basis.Mental Status:For concentration and memory, patient reportsno memory lapses or loss. For speech/motor difficulties, patient reportsno speech difficulties. For depression risk, (see phq).Functional AbilityFor hearing, patient reportswears hearing aids. For vision, patient reportsno vision problems (following optho.). For activities of daily living, patient reportsable to bathe with limited or no assistance,able to contol urination and bowels,able to dress with limited or no assistance,able to feed self with limited or no assistance,able to get out of chair or bed with limited or no assistance,able to groom with limited or no assistance, andable to toilet with limited or no assistance. For instrumental activities of daily living, patient reportsable to do house work with limited or no assistance,able to grocery shop with limited or no assistance,able to manage medications with limited or no assistance,able to manage money with limited or no assistance,able to prepare meals with limited or no assistance, andable to use the phone with limited or no assistance. For falls risk assessment, patient reportsno frequent falls while walking. For home safety, patient reportsno unsafe jeramie hazzards,no unsafe stairs,working smoke/co detectors,use of seatbelts,good lighting in the home, andreviewed sun protection. Here for wellness visit. Reviewed chronic medications and medical problems. Discussed screening guidelines as well. Jake Gabriel MD [address] [address], [place], [address], [facility] 08/26/2024 15:39:00 OBGyn Episode No OBEpisode recorded.
--- OUTSIDE RECORDS SUMMARY | 2025-02-11 12:43 | XMS_ITS | Clinical Summary ---
Author Organization [facility] Address [address] [place] [phone] Phone Care Team Providers Care Scientist Propagator Name Role Phone Ritchie Cuadra MD Primary Care Provider [phone] Allergies No known active allergies Medications gabapentin [...] D-3) 25 mcg (1,000 unit) tablet Take 2 tablets (2,000 Units total) by mouth 1 (one) time [...] Encounters Date Type Department Care Team Description 12/11/2024 Telephone Gastroenterology - [address] [phone] Amber Jernigan MA 12/11/2024 Telephone Gastroenterology - [address] [phone] Rosalia Franco MD 12/10/2024 10:03 AM EDT Anesthesia Event [facility] [address] [place] [phone] Oz Alexander MD 12/10/2024 9:31 AM EDT - 12/10/2024 11:59 PM EDT Hospital Encounter [facility] [address] [place] [phone] Rosalia Franco MD Saliga, Jesse L, MD Johnson, Lorraine, CRNA Colon cancer screening Discharge Disposition: Home or Self Care 11/21/2024 9:21 AM EDT - 11/21/2024 11:59 PM EDT Hospital [facility] [address] [phone] Encounter for screening mammogram for malignant neoplasm of breast Discharge Disposition: Home or Self Care from Last 3 Months Surgical History Surgery Date Site/Laterality Comments COLONOSCOPY WRIST FRACTURE SURGERY Right Family History Medical History Relation Name Comments Breast cancer Half-Sister PATERNAL Relation Name Status Comments Half-Sister Alive Social History Tobacco Use Types Packs/Day Years Used Date Smoking Tobacco: Never Smokeless Tobacco: Never Tobacco Cessation:Counseling Given: Not Answered Alcohol Use Standard Drinks/Week Comments Not Currently 0 (1 standard drink = 0.6 oz pur e alcohol) Interpersonal Safety Answer Date Record ed Physical Abuse Unrecognized value 12/10/2024 Verbal Abuse Unrecognized value 12/10/2024 Comments No Sex and Gender Information Value [...] Sign Reading Time Taken Comments Blood Pressure 141/87 12/10/2024 10:52 AM EDT Pulse 60 12/10/2024 10:52 AM EDT Temperature 36.6 C (97.8 F) 12/10/2024 10:32 AM EDT Respiratory Rate 15 12/10/2024 10:52 AM EDT Oxygen Saturation 98% 12/10/2024 10:52 AM EDT Inhaled Oxygen Concentration - - Weight 57.6 kg (127 lb) 12/10/2024 9:45 AM EDT Height 157.5 cm (5' 2 ) 12/10/2024 9:45 AM EDT Body Mass Index 23.23 12/10/2024 9:45 AM EDT Plan of Treatment Health Maintenance Due Date Last Done Comments Cholesterol Screening (Lipid Panel) 02/26/2022 Hepatitis C Screening 02/26/2022 Medicare Annual Wellness Visit 02/26/2022 Social Influencers of Health Screening 02/26/2022 Depression Screening 03/26/2024 COVID-19 Vaccine (2024- season) 2024 02/07/2021, 05/03/2020, 03/30/2020 Influenza Vaccine (#1) 2024 , 01/29/2023, 12/19/2021, Additional history exists RSV Immunization Adult Patients (1 - 1-dose 75+ series) 2025 Falls Risk Assessment 12/10/2025 12/10/2024 Breast Cancer Screening 11/21/2026 11/22/19 25, 11/16/2023, 11/16/2023, Additional history exists DTaP,Tdap,and Td Vaccines (3 - Td or Tdap) 12/06/2027 12/05/2017, 10/24/2007 Colorectal Cancer Screening: Colonoscopy 12/10/2029 12/10/2024, 12/28/2023 Osteoporosis Screening (Bone Density Screening) 10/08/2034 10/08/2024, [...] Procedure Name Priority Date/Time Associated Diagnosis Comments COLONOSCOPY Routine 12/10/2024 10:31 AM EDT Colon cancer screening TISSUE EXAM Routine 12/10/2024 10:20 AM EDT Colon cancer screening MG MAMMO DIGITAL SCREENING W EFRA BILAT Routine 11/21/2024 9:38 AM EDT Encounter for screening mammogram for malignant neoplasm of breast BD BONE DENSITY DXA AXIAL SKELETON Routine 10/08/2024 9:25 AM EDT Age-related osteoporosis without current pathological fracture from Last 3 Months or Most Recently Relevant to Health Maintenance Results * COLONOSCOPY Anesthesia - MAC; [facility] END[facility]COPY (12/10/2024 10:31 AM EDT) Anatomical Region Laterality Modality Endoscopy 12/10/2024 10:0 8 AM EDT Impressions 12/10/2024 10:32 AM EDT - The examined portion of the ileum was normal. - One 4 mm polyp in the ascending colon, removed with a cold snare. Resected and retrieved. - Diverticulosis in the sigmoid colon. - Internal hemorrhoids. - The examination was otherwise normal. Recommendation: - Await pathology results. - Repeat colonoscopy for surveillance based on pathology results. Narrative 12/10/2024 10:32 AM EDT [facility] GI Patient Name: Cuauhtemoc Hutchinson Procedure Date: 12/10/2024 10:08 AM Date of : 1950 Age: 74 Gender: Female Note Status: Finalized Attending MD: Rosalia Franco MD, Procedure Date No Time: 12/10/2024 Procedure: Colonoscopy Indications: Screening for colorectal malignant neoplasm, History of poor prep 12/2023 colonoscopy Providers: Rosalia Franco MD Referring MD: Ritchie Cuadra MD Medicines: Propofol per Anesthesia Complications: No immediate complications. Estimated Blood Loss: Estimated blood loss: none. Procedure: Pre-Anesthesia Assessment: - ASA Grade Assessment: II - A patient with mild systemic disease. After I obtained informed consent, the scope was passed under direct vision. Throughout the procedure, the patient's blood pressure, pulse, and oxygen saturations were monitored continuously.The Colonoscope was introduced through the anus and advanced to the terminal ileum. The colonoscopy was performed without difficulty. The patient tolerated the procedure well. The quality of the bowel preparation was adequate. Findings: The perianal and digital rectal examinations were normal. The terminal ileum appeared normal. A 4 mm polyp was found in the ascending colon. The polyp was sessile. The polyp was removed with a cold snare. Resection and retrieval were complete. A few small-mouthed diverticula were found in the sigmoid colon. Internal hemorrhoids were found during retroflexion. The hemorrhoids were Grade I (internal hemorrhoids that do not prolapse). The exam was otherwise without abnormality. Procedure Code(s): --- Professional --- 61668, Colonoscopy, flexible; with removal of tumor(s), polyp(s), or other lesion(s) by snare technique Diagnosis Code(s): --- Professional --- Z12.11, Encounter for screening for malignant neoplasm of colon D12.2, Benign neoplasm of ascending colon CPT copyright 2020 [employer]. All rights reserved. The codes documented in this report are preliminary and upon gis coordinator review may be revised to meet current compliance requirements. Rosalia Franco MD 12/10/2024 10:32:11 AM This report has been signed electronically.Rosalia Franco MD Number of Addenda: 0 Note Initiated On: 12/10/2024 10:08 AM Scope In: Scope Out: Endoscopy Department at [facility] - [address] [place] [phone] Procedure Note Rosalia Franco MD - 12/10/2024 [facility] GI Patient Name: Cuauhtemoc Hutchinson Procedure Date: 12/10/2024 10:08 AM Date of : 1950 Age: 74 Gender: Female Note Status: Finalized Attending MD: Rosalia Franco MD, Procedure Date No Time: 12/10/2024 Procedure: Colonoscopy Indications: Screening for colorectal malignant neoplasm,History of poor prep 12/2023 colonoscopy Providers: Rosalia Franco MD Referring MD: Ritchie Cuadra MD Medicines: Propofol per Anesthesia Complications: No immediate complications. Estimated Blood Loss: Estimated blood loss: none. Procedure: Pre-Anesthesia Assessment: - ASA Grade Assessment: II - A patient with mild systemic disease. After I obtained informed consent, the scope was passed under direct vision. Throughout theprocedure, the patient's blood pressure, pulse, and oxygen saturations were monitored continuously.The Colonoscope was introduced through the anus and advanced to the terminal ileum. The colonoscopy was performed without difficulty. The patient tolerated the procedure well. The quality of the bowel preparation was adequate. Findings: The perianal and digital rectal examinations were normal. The terminal ileum appeared normal. A 4 mm polyp was found in the ascending colon. The polyp was sessile. The polyp was removed with acold snare. Resection and retrieval were complete. A few small-mouthed diverticula were found in the sigmoid colon. Internal hemorrhoids were found duringretroflexion. The hemorrhoids were Grade I (internal hemorrhoids that do not prolapse). The exam was otherwise without abnormality. Procedure Code(s): --- Professional --- 11480, Colonoscopy, flexible; with removal of tumor(s), polyp(s), or other lesion(s) by snare technique Diagnosis Code(s): --- Professional --- Z12.11, Encounter for screening for malignantneoplasm of colon D12.2, Benign neoplasm of ascending colon CPT copyright 2020 [employer]. All rights reserved. The codes documented in this report are preliminary and upon gis coordinator reviewmay be revised to meet current compliance requirements. Rosalia Franco MD 12/10/2024 10:32:11 AM This report has been signed electronically.Rosalia Franco MD Number of Addenda: 0 Note Initiated On: 12/10/2024 10:08 AM Scope In: Scope Out: Endoscopy Department at [facility] - [address] [place] [phone] IMPRESSION: - The examined portion of the ileum was normal. - One 4 mm polyp in the ascending colon, removedwith a cold snare. Resected and retrieved. - Diverticulosis in the sigmoid colon. - Internal hemorrhoids. - The examination was otherwise normal. Recommendation: - Await pathology results. - Repeat colonoscopy for surveillance based on pathology results. us Rosalia Franco MD GI~PROCEDURE ORDERABLES Final Result * Tissue exam (12/10/2024 10:20 AM EDT) Final Diagnosis Ascending Colon, polyp: [place] c. Fecal debris only. 12/11/2024 10:43 AM EDT [facility] Gross Description A. Large Intestine, Right/Ascend ing Colon, polyp x1: Labeled polyp x 1 ascend colon . Received in formalin is a 0.7 x 0.3 x 0.1 cm aggregate of fecal/food debris. Tissue is not identified. The specimen is wrapped in paper and submitted in toto in one cassette, multiple pieces, multiple levels (which might fail processing). TS 12/11/2024 10:43 AM EDT [facility] Disclaimer Unless otherwise specified, all tissue is 10% NB formalin fixed and paraffin embedded. 12/11/2024 10:43 AM EDT [facility] Tissue Ascending colon structure / Unknown 12/10/2024 10:20 AM EDT 12/10/2024 12:31 PM EDT us Rosalia Franco MD LAB PATHOLOGY ORDERABLES Final Result [facility] [address] [place] [address], * MG Mammo Digital Screening w Efra bilat (11/21/2024 9:38 AM EDT) Anatomical Region Laterality Modality Breast Bilateral Mammography 11/21/2024 9:43 AM EDT Impressions 11/21/2024 9:46 AM EDT No mammographic evidence of malignancy. A negative mammogram in the presence of a clinically suspicious palpable abnormality does not preclude the possibility of malignancy or alter the indications for biopsy. PQRI CPT II 3342F Code 78865, 90729 PQRI 225 CPT II 7025F TISSUE DENSITY: There are scattered areas of fibroglandular density. (BI-RADS category B) IMPRESSION: Benign. BI-RADS CATEGORY: 2 - BENIGN RECOMMENDATION: Screening bilateral mammogram is recommended in 1 year. Mammo Location: [facility], [address] [place] [phone] -------- FINAL REPORT -------- Dictated By: Attila Silverio Dictated Date: 11/21/2024 09:43 ET Assigned Physician: Attila Silverio Reviewed and Electronically Signed By: Attila Silverio Signed Date: 11/21/2024 09:46 ET Workstation ID: [id number] Transcribed By: Self Edit Transcribed Date: 11/21/2024 09:43 ET Narrative 11/21/2024 9:46 AM EDT CLINICAL: The patient is a 74 years Female presenting for routine screening mammography. COMPARISON: Most recently 11/16/2023 and most remotely 06/30/2016. TECHNIQUE: Full-field digital mammography of the breasts bilaterally consisting of tomosynthesis in MLO and CC projection is performed in the AOL 2000-D unit. Computer aided detection utilizing the [...] MLO and CC projection is performed in theAOL 2000-D unit. Computer aided detection utilizing the nfonystem was utilized. FINDINGS: The breasts are again [...] for biopsy. PQRI CPT II 3342F Code 05196, 17454 PQRI 225 CPT II 7025F TISSUE DENSITY: There are scattered areas of fibroglandular density.(BI-RADS category B) IMPRESSION: Benign. BI-RADS CATEGORY: 2 - BENIGN RECOMMENDATION: Screening bilateral mammogram is recommended in 1 year. Mammo Location: [facility], [address] [place] [id number] -------- FINAL REPORT -------- Dictated By: Attila Silverio Dictated Date: 11/21/2024 09:43 ET Assigned Physician: Attila Silverio Reviewed and Electronically Signed By: Attila Silverio Signed Date: 11/21/2024 09:46 ET Workstation ID: [id number] Transcribed By: Self Edit Transcribed Date: 11/21/2024 [...] probability of hip fracture of 3.6%. Code 47989 -------- FINAL REPORT -------- Dictated By: Attila Silverio Dictated Date: 10/08/2024 09:38 ET Assigned Physician: Attila Silverio Reviewed and Electronically Signed By: Attila Silverio Signed Date: 10/08/2024 09:40 ET Workstation ID: [id number] Transcribed By: Self Edit Transcribed Date: 10/08/2024 [...] density of the femurs bilaterally is 0.829 gm/qx8zrbtr is 82% of that of young normals [...] probability of hip fracture of 3.6%. Code 65363 -------- FINAL REPORT -------- Dictated By: Attila Silverio Dictated Date: 10/08/2024 09:38 ET Assigned Physician: Attila Silverio Reviewed and Electronically Signed By: Attila Silverio Signed Date: 10/08/2024 09:40 ET Workstation ID: [id number] Transcribed By: Self Edit Transcribed Date: 10/08/2024 09:38 ET Rylee Huizar MD IMG DXA PROCEDURES Final R esult from Last 3 Months or Most Recently Relevant to Health Maintenance Insurance MEDICARE [facility] Care Teams Scientist Propagator Relationship Specialty Start Date End Date Ritchie Cuadra MD [address] [phone] PCP - General Family Medicine 06/30/24
== END 2025-02-10 15:42 | disposition home or self-care (01) ==
LOC: HO.RHES 14:50
PROVIDERS: PCP Family Medicine; Visit Provider Internal Medicine Rheumatology
DX: M18.0 Bilateral primary osteoarthritis of first carpometacarpal joints (principal); M65.4 Radial styloid tenosynovitis [de Quervain]; M25.542 Pain in joints of left hand
CPT/HCPCS: 20600; 99214

== ENCOUNTER → 2025-02-10 14:50 | Outpatient (BNVA) | payer MEDICARE, SELFPAY | PROVIDERS: PCP Family Medicine; Visit Provider Internal Medicine Rheumatology | DX: M18.0 Bilateral primary osteoarthritis of first carpometacarpal joints (principal); M65.4 Radial styloid tenosynovitis [de Quervain] | CPT/HCPCS: 20600; 99212; J2003; J3301 ==